=== PATIENT | female | born 1990 | race African-American/Black ===

== ENCOUNTER 2019-04-25 15:55 | Emergency (ER) | payer SELFPAY ==
--- NOTE | ~2019-04-25 | XR_ITS ---
EXAMINATION: XR elbow RT min 3V DATE: 04/25/2019 19:29 INDICATION: Right elbow pain with numbness and tingling radiating down the right arm TECHNIQUE: Anteroposterior, two oblique and lateral views of the right elbow were obtained. COMPARISON: None. FINDINGS: Alignment is normal. No fracture or joint effusion. Joint spaces are normal. Soft tissues are unremar kable. IMPRESSION: 1. Negative right elbow radiographs. Reviewed, dictated and finalized at location A. [employer]
[2019-04-25 16:52] VITALS: BP 155/94; PULSE 62; RESP 19; TEMP 36.9; O2SAT 99
--- NOTE | 2019-04-25 19:19 | WC.ED.TRAUMA ---
HPI - Trauma General Chief Complaint: Extremity Injury, Upper Stated Complaint: Right Arm Pain Time Seen by Provider: 04/25/19 19:17 Source: patient Mode of arrival: ambulatory Limitations: no limitations History of Present Illness HPI narrative: Patient is a 28-year-old female who presents to emergency department with 3 days duration of right elbow pain noting moderate aching pain patient notes that he was popping the elbow secondary to the pain and notes since she has had increasing pain that radiates into the forearm. Patient notes the pain is worse with activity and movement. Patient notes moderate aching pain since she has not taken anything for this patient know she does get some numbness down into the hand. Patient denies injury or complaint but notes she works doing frequent activities of the elbow and hands and was pulling or pushing an object when she believes the pain began. Patient has not been seen for this complaint. On arrival to emergency department patient is in the room in no distress Related Data Allergies Allergy/AdvReac Type Severity Reaction Status Date / Time No Known Allergies Allergy Verified 04/25/19 19:16 Review of Systems Review of Systems: Narrative: CONSTITUTIONAL: Denies fever, chills, or sweats. CARDIOVASCULAR: Denies chest pain, palpitations, or edema. RESPIRATORY: Denies cough or dyspnea. SKIN: Denies redness or warmth to touch or rash MUSCULOSKELETAL: Denies neck or upper back pain NEUROLOGIC: Denies headache, numbness PMFSH Social History Social History (Updated 04/25/19 @ 19:27 by Jose Alejandro Black PA-C) Smoking status: Never smoker Gender identity (if verbalized by the patient): Male Exam Narrative: Exam Narrative: GENERAL: Well-appearing, well-nourished, and in no acute distress. HEAD: Normocephalic, atraumatic. EYES: PERRLA and EOMI. ENT: Nares clear, no rhinorrhea or epistaxis. Mucous membranes moist. Oropharynx without tonsillar hypertrophy exudate or other lesions. NECK: Supple. No adenopathy or masses. CHEST: Clear to auscultation. No respiratory distress. No wheezes rales or rhonchi HEART: Regular rate and rhythm. No murmur heard. Normal peripheral pulses. EXTREMITIES: Tenderness of the posterior elbow with even light touch no deformities noted with tenderness into the forearm without any deformity noted no tenderness of the shoulder or cervical spine SKIN: Warm, dry, no rash. NEURO: No focal deficits. Alert and oriented x3. Neurovascularly intact. Capillary refill less than 2 seconds PSYCH: Normal mood and affect. Course Course Emergency Course: Patient in the room in no distress aware of case findings treatment plan and diagnosis agreeing to follow-up as directed or to return if symptoms worsen or concerns Vital Signs Vital signs: Vital Signs Temperature 98.4 F 04/25/19 16:52 Pulse Rate 62 04/25/19 16:52 Respiratory Rate 19 04/25/19 16:52 Blood Pressure 155/94 H 04/25/19 16:52 Pulse Oximetry 99 04/25/19 16:52 Temperature 98.4 F 04/25/19 16:52 Pulse Rate 62 04/25/19 16:52 Respiratory Rate 19 04/25/19 16:52 Blood Pressure 155/94 H 04/25/19 16:52 Pulse Oximetry 99 04/25/19 16:52 MDM - Trauma MDM Narrative Medical decision making narrative: Patients injury or pain is consistent with musculoskeletal etiology. No signs of neurological or vascular compromise on exam. Compartments and tisues are soft without signs of compartment syndrome. Pain is felt appropriate for further evaluation on an outpatient basis. Imaging Data Radiologist's impression: ITS Impressions Elbow X-Ray 04/25/19 19:30 IMPRESSION: 1. Negative right elbow radiographs. Discharge Plan Discharge Clinical Impression: Arm pain, right Patient Disposition: Home, Self-Care Condition: Stable Instructions: Antibiotic Form, Arm Pain (ED) Additional Instructions: Follow up with your primary care provider within 5-7 days. Go to ER
[2019-04-25] MEDS: predniSONE 20 MG TABLET 40 MG PO (19:36)
[2019-04-25] MEDS: KETOROLAC (*BKC) 60 MG/2 ML VIAL IM (19:37)
[2019-04-25 20:07] VITALS: TEMP 36.9
[2019-04-25 20:31] VITALS: BP 152/81; PULSE 66; RESP 16; TEMP 37; O2SAT 100
== END 2019-04-25 20:36 | disposition home or self-care (01) ==
PROVIDERS: Emergency Provider Emergency Medicine
DX: M25.521 Pain in right elbow (principal)
CPT/HCPCS: 73080; 96372; 99283; J1885; J7512

== ENCOUNTER 2020-07-27 17:30 | Emergency (ER) | payer OTHER, SELFPAY ==
--- NOTE | ~2020-07-27 | XR_ITS ---
EXAMINATION: XR finger 3rd RT min 2V DATE: 07/27/2020 21:31 INDICATION: Right hand third digit dog bite. TECHNIQUE: 3 views of right hand third digit were obtained. COMPARISON: None. FINDINGS: Bone alignment is normal. No fracture. Joint spaces are well maintained. IMPRESSION: 1. No fracture or radiopaque foreign body. Reviewed, dictated and finalized at location A.
--- NOTE | ~2020-07-27 | CT_ITS ---
EXAMINATION: CT abdomen pelvis w con DATE: 07/27/2020 22:07 INDICATION: Abdominal pain. Nausea and vomiting. Diarrhea. TECHNIQUE: Computed tomography (CT) of the abdomen and pelvis was performed with 100 mL Omnipaque 350 intravenous contrast. Automated exposure control and iterative reconstruction technique were employe d. The dose-length product was 894.75 mGy-cm. COMPARISON: None. FINDINGS: The visualized portions of the lung bases are clear without pneumonia or pleural effusion. The heart size is normal. No pericardial effusion. The liver and spleen are normal. The gallbladder i s contracted. The pancreas, adrenal glands, and kidneys are normal. There are no dilated loops of bow el. The appendix is normal. There is mild mesenteric lymphadenopathy with the largest node measuring 14 x 20 mm. There is no free intraperitoneal fluid. The bones are unremarkable. IMPRESSION: 1. Mild mesenteric lymphadenopathy, likely reactive. Reviewed, dictated and finalized at location A.
[2020-07-27 18:07] VITALS: BP 137/88; PULSE 80; RESP 18; TEMP 36.2; O2SAT 99
[2020-07-27 18:24] LABS: Basophils Absolute Auto 0.1 K/mm3 (0.0-0.1); Basophils Percent Auto 0.9 % (0.2-1.2); Eosinophils Absolute Auto 0.2 K/mm3 (0-0.3); Eosinophils Percent Auto 2.9 % (0-4.4); Hemoglobin 12.8 g/dL (12.0-15.0); Immature Granulocyte Absolute 0.03 K/mm3 (0.00-0.031); Immature Granulocyte Percent A 0.4 % (0-0.5); Lymphocytes Absolute Auto 2.17 K/mm3 (0.9-3.2); Lymphocytes Percent Auto 28.9 % (18.3-44.2); Mean Corpuscular HGB Conc 31.2 g/dl (32-36); Mean Corpuscular Hemoglobin 27.2 pg (26-34); Mean Corpuscular Volume 87.2 fl (80-100); Mean Platelet Volume 10.5 fl (7.4-10.4); Monocytes Absolute Auto 0.8 K/mm3 (0.1-0.6); Monocytes Percent Auto 11.2 % (2.6-8.5); Neutrophils Absolute Auto 4.2 K/mm3 (1.3-6.7); Neutrophils Percent Auto 55.7 % (45.5-73.1); Platelet Count Result 250 k/mm3 (150-375); Red Cell Distribution Width 13.7 % (11.5-14.5); White Blood Count 7.5 K/mm3 (4.5-10.0)
[2020-07-27 18:36] LABS: Potassium 3.5 mmol/L (3.4-5.0)
[2020-07-27 18:40] LABS: Alanine Aminotransferase 24 U/L (4-35); Albumin Level 4.3 g/dL (3.5-5.1); Alkaline Phosphatase 56 U/L (38-126); Anion Gap 5 mmol/L (8-16); Aspartate Amino Transferase 28 U/L (14-36); Bilirubin,Total 0.4 mg/dL (0.2-1.3); Blood Urea Nitrogen 8 mg/dL (7-17); Calcium 9.5 mg/dL (8.4-10.2); Carbon Dioxide 30 mmol/L (22-30); Chloride 104 mmol/L (98-107); Estimated CRCL calculation 92 ml/min; Estimated Glomerular Filt Rate > 60; Glucose 116 mg/dL (65-105); Lipase 37 U/L (23-300); Sodium 139 mmol/L (137-145)
[2020-07-27 18:43] LABS: Atypical Lymphocytes Present; Platelet Estimate Adequate (Adequate)
--- NOTE | 2020-07-27 20:42 | PC.NURSE ---
pt states she isn't able to urinate at this time. pt given blue bag. will let rn know when shes able to give sample.
--- NOTE | 2020-07-27 21:22 | ED.GENADULT ---
HPI - General Adult General Chief complaint: Unspecified Stated complaint: Diarrhea x 2 weeks,chest heaviness, dog bite Time Seen by Provider: 07/27/20 20:46 Source: patient, RN notes reviewed and old records reviewed Mode of arrival: ambulatory Limitations: no limitations History of Present Illness HPI narrative: Patient is 29 years old -[place] female presents with a dog bite to right third finger 6 days ago. Patient knows the dog, unknown last tetanus. Patient also complaining of nausea, vomiting and diarrhea for the last 2 weeks with diffuse lower abdominal pain. Patient reports vomiting anything she ate or drink. Also watery stool, maximum 3 times a day. Patient denies any fever, chills, nausea, vomiting, history of abdominal surgery, vaginal bleeding or discharge or urinary symptoms. Related Data Allergies Allergy/AdvReac Type Severity Reaction Status Date / Time No Known Allergies Allergy Verified 07/27/20 21:19 Review of Systems Review of Systems: Narrative: CONSTITUTIONAL: Denies fever, chills, or sweats. EYES: Denies visual changes, redness, or discharge. ENT: Denies rhinorrhea, congestion, sore throat, or otalgia. CARDIOVASCULAR: Denies chest pain, palpitations, or edema. RESPIRATORY: Denies cough or dyspnea. GASTROINTESTINAL: Denies abdominal pain, nausea, vomiting, or diarrhea. GENITOURINARY: Denies dysuria or hematuria. SKIN: Denies rash or itching. MUSCULOSKELETAL: Denies back pain, joint pain, or myalgia. NEUROLOGIC: Denies headache, numbness, or weakness. PSYCHIATRIC: Denies anxiety or depression. [facility] Social History Social History Smoking status: Never smoker Gender identity (if verbalized by the patient): Male Exam Narrative: Exam Narrative: General appearance: Well-developed, well-nourished Skin: Normal color Head: Normocephalic, nontraumatic Eyes: Clear conjunctiva ENT: Oropharynx normal, ears normal, nose normal Neck: Supple, nontender Chest and respiratory: Airway patent, no respiratory distress, no accessory muscle use Heart: Regular rate/rhythm Abdomen: Soft, diffuse tenderness across mid abdomen bilaterally, no guarding or rebound, hypoactive bowel sounds Vascular: Normal peripheral pulses, normal capillary refill. Musculoskeletal: Normal range of motion, nontender back, right middle finger showed healed bites, no swelling, no erythema, no discharge, slight limited range of motion Neurologic: Alert and oriented ?3, [employer] is normal as tested, no gross motor deficit Course Course Emergency Course: Stable Vital Signs Vital signs: Vital Signs Temperature 36.2 C L 07/27/20 18:07 Pulse Rate 80 07/27/20 18:07 Respiratory Rate 18 07/27/20 18:07 Blood Pressure 137/88 07/27/20 18:07 Pulse Oximetry 99 07/27/20 18:07 Temperature 36.2 C L 07/27/20 18:07 Pulse Rate 75 07/27/20 22:48 Respiratory Rate 18 07/27/20 22:48 Blood Pressure 121/76 07/27/20 22:48 Pulse Oximetry 100 07/27/20 22:48 Medical Decision Making [facility] Narrative Medical decision making narrative: Gastroenteritis, fracture right middle finger is my concern. Labs, IV fluid, CT abdomen pelvis with IV contrast ordered. Please look at my depression diagnosis below Differential Diagnosis Differential Diagnosis: Viral gastroenteritis, diverticulitis, electrolyte imbalance, fracture right middle finger. Vital Signs Vital Signs: Vital Signs Temperature 36.2 C L 07/27/20 18:07 Pulse Rate 80 07/27/20 18:07 Respiratory Rate 18 07/27/20 18:07 Blood Pressure 137/88 07/27/20 18:07 Pulse Oximetry 99 07/27/20 18:07 Temperature 36.2 C L 07/27/20 18:07 P
[2020-07-27] MEDS: SODIUM CHLORIDE 0.9% IV 1,000 ML 999 ML IV CONT (21:35)
[2020-07-27 21:39] VITALS: BP 121/105; O2SAT 100
[2020-07-27] MEDS: TETANUS,DIPHTHERIA,AC PERTUSSIS ADULT (0.5 ML) BOOSTRIX IM (21:44)
[2020-07-27 22:48] VITALS: BP 121/76; PULSE 75; RESP 18; O2SAT 100
--- NOTE | 2020-07-27 23:17 | PC.NURSE ---
rn noticed urine order still read ordered. called lab to see if maybe there wasnt enough urine in last sample. lab stated they just had shift change and isn't sure why it still says ordered. they stated we can send down more urine with patient label.
[2020-07-27 23:29] LABS: Add Urine Microscopic? NO; Appearance Urine Clear (Clear); Bilirubin Urine Negative (Negative); Blood Urine Negative (Negative); Color Urine Yellow (Yellow); Glucose Urine UA Negative (Negative); Ketones Urine Negative (Negative); Leukocyte Esterase Ur Negative LEU/UL (Negative); Nitrate Urine Negative (Negative); Protein Urine Negative (Negative); Specific Grav Ur 1.026 (1.001-1.035); Urobilinogen Urine Negative mg/dL (<2.0)
[2020-07-27 23:43] VITALS: BP 119/79; PULSE 70; RESP 18; O2SAT 99
== END 2020-07-27 23:45 | disposition home or self-care (01) ==
PROVIDERS: Emergency Provider Emergency Medicine; PCP Emergency Medicine
DX: K52.9 Noninfective gastroenteritis and colitis, unspecified (principal); S61.252A Open bite of right middle finger without damage to nail, initial encounter; Z23 Encounter for immunization; W54.0XXA Bitten by dog, initial encounter
CPT/HCPCS: 36415; 73140; 74177; 80053; 81003; 81025; 83690; 85025; 90471; 90715; 96360; 96361; 99284; J7030; Q9967

== ENCOUNTER 2020-08-12 08:32 | Emergency (ER) | payer OTHER, SELFPAY ==
--- NOTE | ~2020-08-12 | CT_ITS ---
EXAMINATION: CT abdomen pelvis w con DATE: 08/12/2020 10:26 INDICATION: Generalized abdominal pain TECHNIQUE: Computed tomography (CT) of the abdomen and pelvis was performed with 100 mL Omnipaque-350 intravenous contrast. Automated exposure control and iterative reconstruction technique were employe d. The dose-length product was 849.38 mGy-cm. COMPARISON: 08/06/2020 FINDINGS: Lung bases are clear. Heart size is normal. No pericardial or pleural effusion. Liver, gallbladder, s pleen, pancreas, bilateral adrenal glands and kidneys are normal. Bowels including the appendix are n ormal. Bladder, anteverted uterus and bilateral adnexa are unremarkable. No free intraperitoneal gas or fluid. No pathologically enlarged abdominal or pelvic lymphadenopathy. Slight interval decrease in size of several mildly enlarged likely reactive mesenteric lymph nodes, 2 of the largest measuring 1 .9 x 1.1 cm and 1.7 x 1.0 cm. No new or enlarging abdominal, pelvic or inguinal lymphadenopathy. Mini mal to mild thoracolumbar spondylosis. IMPRESSION: 1. Slight improvement in nonspecific mild mesenteric lymphadenopathy which is likely reactive. Reviewed, dictated and finalized at location A. IMPRESSION: 1. Slight improvement in nonspecific mild mesenteric lymphadenopathy which is l ikely reactive.
[2020-08-12 08:33] VITALS: BP 146/96; PULSE 71; RESP 20; TEMP 36.3; O2SAT 99
--- NOTE | 2020-08-12 09:44 | PC.NURSE ---
x1 day bilat lower abd sharp, stabbing pains, bad chest pains, like heartburn , +congested cough. +N/V/D, able to tolerate a little PO. deneis urinary s/s, +cold sweats
[2020-08-12] MEDS: SODIUM CHLORIDE 0.9% IV 1,000 ML 999 ML IV CONT (09:47)
[2020-08-12 09:59] LABS: Basophils Absolute Auto 0.1 K/mm3 (0.0-0.1); Basophils Percent Auto 0.7 % (0.2-1.2); Eosinophils Absolute Auto 0.2 K/mm3 (0-0.3); Eosinophils Percent Auto 2.5 % (0-4.4); Hematocrit 40.7 % (37.0-47.0); Hemoglobin 12.6 g/dL (12.0-15.0); Immature Granulocyte Absolute 0.07 K/mm3 (0.00-0.031); Immature Granulocyte Percent A 0.8 % (0-0.5); Lymphocytes Absolute Auto 2.83 K/mm3 (0.9-3.2); Lymphocytes Percent Auto 31.8 % (18.3-44.2); Mean Corpuscular Hemoglobin 27.3 pg (26-34); Mean Corpuscular Volume 88.3 fl (80-100); Mean Platelet Volume 10.4 fl (7.4-10.4); Monocytes Absolute Auto 0.8 K/mm3 (0.1-0.6); Monocytes Percent Auto 8.8 % (2.6-8.5); Neutrophils Absolute Auto 4.9 K/mm3 (1.3-6.7); Neutrophils Percent Auto 55.4 % (45.5-73.1); Platelet Count Result 261 k/mm3 (150-375); Red Blood Count 4.61 M/mm3 (4.2-5.4); Red Cell Distribution Width 14.4 % (11.5-14.5); White Blood Count 8.9 K/mm3 (4.5-10.0)
[2020-08-12 10:03] LABS: Add Urine Microscopic? YES; Appearance Urine Cloudy (Clear); Bilirubin Urine Negative (Negative); Blood Urine Negative (Negative); Color Urine Yellow (Yellow); Glucose Urine UA Negative (Negative); Ketones Urine Negative (Negative); Leukocyte Esterase Ur Negative LEU/UL (Negative); Mucus Urine Rare /lpf; Nitrate Urine Negative (Negative); Protein Urine Negative (Negative); RBC Urine 0-2 /hpf (0-2); Specific Grav Ur 1.017 (1.001-1.035); Squamous Epithelial Cell Urine Occasional /hpf (Few); Urobilinogen Urine Negative mg/dL (<2.0); WBC Urine 0-3 /hpf
[2020-08-12 10:09] LABS: Alanine Aminotransferase 20 U/L (4-35); Albumin Level 4.1 g/dL (3.5-5.1); Alkaline Phosphatase 62 U/L (38-126); Anion Gap 4 mmol/L (8-16); Aspartate Amino Transferase 22 U/L (14-36); Bilirubin,Total 0.3 mg/dL (0.2-1.3); Blood Urea Nitrogen 12 mg/dL (7-17); Calcium 9.4 mg/dL (8.4-10.2); Carbon Dioxide 28 mmol/L (22-30); Chloride 106 mmol/L (98-107); Estimated CRCL calculation 112 ml/min; Estimated Glomerular Filt Rate > 60; Glucose 108 mg/dL (65-105); Lipase 47 U/L (23-300); Potassium 4.1 mmol/L (3.4-5.0); Sodium 138 mmol/L (137-145)
--- NOTE | 2020-08-12 11:00 | ED.GENADULT ---
HPI - General Adult General Chief complaint: Abdominal Pain Stated complaint: ABD PAIN Time Seen by Provider: 08/12/20 09:27 Source: patient, family and RN notes reviewed Mode of arrival: ambulatory Limitations: no limitations History of Present Illness HPI narrative: Patient is a 29-year-old female who presents with abdominal pain in the epigastrium radiating to the chest has been present for the last 2 days patient has had similar occurrence in the past seen by primary care denies fever chills nausea vomiting did have some loose stools denies sick contacts presents in no distress has not taken anything for her symptoms Related Data Allergies Allergy/AdvReac Type Severity Reaction Status Date / Time No Known Allergies Allergy Verified 08/12/20 08:42 Review of Systems Review of Systems: All systems reviewed & are unremarkable except as noted in HPI and below PMFSH Social History Social History Smoking status: Never smoker Gender identity (if verbalized by the patient): Female Exam Narrative: Exam Narrative: GENERAL: Well-appearing, well-nourished, and in no acute distress. HEAD: Normocephalic, atraumatic. EYES: PERRLA and EOMI. ENT: Nares clear, no rhinorrhea or epistaxis. Mucous membranes moist. CHEST: Clear to auscultation. No respiratory distress. No wheezes rales or rhonchi HEART: Regular rate and rhythm. No murmur heard. Normal peripheral pulses. ABDOMEN: Soft, nontender, nondistended EXTREMITIES: Normal range of motion. No edema. SKIN: Warm, dry, no rash. NEURO: No focal deficits. Alert and oriented x3. Cranial nerves II through XII grossly intact PSYCH: Normal mood and affect. Course Course Emergency Course: Patient in the room at this time no distress resting comfortably findings were reviewed with the patient patient will be discharged home back to primary care placed on an acid minimal tenderness of the abdomen no high risk changes in the evaluation to include blood work and imaging ABCs and vital signs intact and stable Vital Signs Vital signs: Vital Signs Temperature 97.4 F L 08/12/20 08:33 Pulse Rate 71 08/12/20 08:33 Respiratory Rate 20 08/12/20 08:33 Blood Pressure 146/96 H 08/12/20 08:33 Pulse Oximetry 99 08/12/20 08:33 Temperature 97.4 F L 08/12/20 08:33 Pulse Rate 71 08/12/20 08:33 Respiratory Rate 20 08/12/20 08:33 Blood Pressure 146/96 H 08/12/20 08:33 Pulse Oximetry 99 08/12/20 08:33 Medical Decision Making MDM Narrative Medical decision making narrative: Patient in the room at this time no distress aware of case findings treatment plan and diagnosis will follow with primary care and has been given a GI referral and reasons to return Vital Signs Vital Signs: Vital Signs Temperature 97.4 F L 08/12/20 08:33 Pulse Rate 71 08/12/20 08:33 Respiratory Rate 20 08/12/20 08:33 Blood Pressure 146/96 H 08/12/20 08:33 Pulse Oximetry 99 08/12/20 08:33 Temperature 97.4 F L 08/12/20 08:33 Pulse Rate 71 08/12/20 08:33 Respiratory Rate 20 08/12/20 08:33 Blood Pressure 146/96 H 08/12/20 08:33 Pulse Oximetry 99 08/12/20 08:33 Lab Data Result diagrams: 08/12/20 09:49 08/12/20 09:49 Labs: Lab Results 08/12/20 08/12/20 08/12/20 Range/Units 09:49 09:49 09:49 WBC 8.9 (4.5-10.0) K/mm3 RBC 4.61 (4.2-5.4) M/mm3 Hgb 12.6 (12.0-15.0) g/dL Hct 40.7 (37.0-47.0) % MCV 88.3 (80-100) fl MCH 27.3 (26-34) pg MCHC 31.0 L (32-36) g/dl RDW 14.4 (11.5-14.5) % Plt Count 261 (150-375) k/mm3 MPV 10.4 (7.4-10.4) fl Immature Gran % (Auto) 0.8 H (0-0.5) % Neut % (Auto) 55.4 (45.5-73.1) % Lymph % (Auto) 31.8 (18.3-44.2) % Pierce % (Auto) 8.8 H (2.6-8.5) % Eos % (Auto) 2.5 (0-4.4) % Baso % (Auto) 0.7 (0.2-1.2) % Lymph # (Auto) 2.83 (0.9-3.2) K/mm3 Pierce # (Auto) 0.8 H (0.1-0.
[2020-08-12 11:20] VITALS: BP 136/96; PULSE 74; RESP 18; O2SAT 100
[2020-08-12] MEDS: PANTOPRAZOLE SODIUM IV 40 MG VIAL IV PUSH (11:24)
== END 2020-08-12 11:30 | disposition home or self-care (01) ==
PROVIDERS: Emergency Provider Emergency Medicine; PCP Emergency Medicine
DX: R10.13 Epigastric pain (principal)
CPT/HCPCS: 36415; 74177; 80053; 81001; 81025; 83690; 85025; 96361; 96374; 99284; C9113; J7030; Q9967

== ENCOUNTER 2020-10-06 11:48 | Emergency (ER) | payer OTHER, SELFPAY ==
--- NOTE | ~2020-10-06 | XR_ITS ---
EXAMINATION: XR lumbar spine 2-3V DATE: 10/06/2020 12:31 INDICATION: Low back pain TECHNIQUE: Anteroposterior and lateral views of the lumbar spine, and cone-down lateral view of the l umbosacral junction were obtained. COMPARISON: None. FINDINGS: There is no fracture, dislocation, or subluxation. The vertebral body heights, alignment, a nd intervertebral disc spaces are normal. The paravertebral soft tissues are unremarkable. IMPRESSION: 1. No acute osseous abnormality. Reviewed, dictated and finalized at location A.
[2020-10-06 11:49] VITALS: BP 129/92; PULSE 75; RESP 18; TEMP 36.6; O2SAT 100
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
[2020-10-06] MEDS: KETOROLAC (*BKC) 60 MG/2 ML VIAL IM (12:39)
[2020-10-06] MEDS: CYCLOBENZAPRINE HCL 10 MG TABLET PO (12:39)
== END 2020-10-06 14:01 | disposition home or self-care (01) ==
PROVIDERS: Emergency Provider Nurse Practitioner; PCP Emergency Medicine
DX: M54.5 Low back pain (principal); G89.29 Other chronic pain
CPT/HCPCS: 72100; 96372; 99283; A9270; J1885

== ENCOUNTER 2020-12-29 14:26 | Emergency (ER) | payer OTHER, SELFPAY ==
--- NOTE | ~2020-12-29 | XR_ITS ---
EXAMINATION: XR lumbar spine 2-3V DATE: 12/29/2020 16:32 INDICATION: Low back pain radiating down the bilateral legs. TECHNIQUE: Anteroposterior and lateral views of the lumbar spine, and cone-down lateral view of the l umbosacral junction were obtained. COMPARISON: None. FINDINGS: Alignment is normal. Vertebral body heights are normal. Minimal disc height loss at L3-L4 and L4-L5. Sacrum and bilateral sacral iliac joints are normal. Normal bowel gas pattern. IMPRESSION: 1. Minimal disc height loss at L3-L4 and L4-L5. Otherwise unremarkable lumbar spine radiographs. Reviewed, dictated and finalized at location A. IMPRESSION: 1. Minimal disc height loss at L3-L4 and L4-L5. Otherwise unremarkable lumbar s pine radiographs.
[2020-12-29 14:33] VITALS: BP 131/85; PULSE 79; TEMP 36.9; O2SAT 94
--- NOTE | 2020-12-29 16:09 | ED.LOWEXIN ---
HPI - Extremity Injury (Lower) General Chief Complaint: Extremity Injury, Lower Stated Complaint: R foot pain Time Seen by Provider: 12/29/20 15:52 Source: patient Mode of arrival: ambulatory Limitations: no limitations History of Present Illness HPI Narrative: This is a 30 year old female that presents to the ER for low back pain present since yesterday. Reports the pain radiates down both of her legs. Worse with movement and relieved with rest. Reports intermittent tingling in her extremities. She has not taken anything for pain. No recent injury or trauma. Denies saddle anesthesia or bowel/bladder incontinence. Related Data Allergies Allergy/AdvReac Type Severity Reaction Status Date / Time No Known Allergies Allergy Verified 08/12/20 08:42 Review of Systems Review of Systems: CONSTITUTIONAL: Denies fever SKIN: Denies rash MUSCULOSKELETAL: Reports back pain, joint pain, and myalgia. NEUROLOGIC: Denies numbness, or weakness. All systems reviewed & are unremarkable except as noted in HPI and below PMFSH Past Medical History Medical History (Updated 12/29/20 @ 18:50 by Marlene García PA-C) Chronic low back pain Surgical History Surgical History No pertinent past surgical history Family History Family History (Updated 10/06/20 @ 13:50 by Saul Jimenez, [facility], ) Mother No pertinent past medical history Social History Social History Smoking status: Never smoker Alcohol intake: current Alcohol use details: Socially Substance use: current Substance use type: marijuana Additional occupation/education comments: Works for [employer] Gender identity (if verbalized by the patient): Female Sexual Orientation (if Verbalized by the Patient): Straight or Heterosexual Spiritual care concerns: No Exam Narrative: GENERAL: Well-appearing, well-nourished, and in no acute distress. HEAD: Normocephalic, atraumatic. EYES: EOMI. CHEST: Clear to auscultation. No respiratory distress. No wheezes rales or rhonchi HEART: Regular rate and rhythm. No murmur heard. Normal peripheral pulses. BACK: No midline spinal tenderness. EXTREMITIES: Normal range of motion. No edema. Strength equal in bilateral lower extremities (5/5). Normal DP pulses SKIN: Warm, dry, no rash. NEURO: No focal deficits. Alert and oriented x3. PSYCH: Normal mood and affect Course Vital Signs Vital signs: Vital Signs Temperature 98.5 F 12/29/20 14:33 Pulse Rate 79 12/29/20 14:33 Blood Pressure 131/85 12/29/20 14:33 Pulse Oximetry 94 12/29/20 14:33 Temperature 98.5 F 12/29/20 14:33 Pulse Rate 79 12/29/20 14:33 Blood Pressure 131/85 12/29/20 14:33 Pulse Oximetry 94 12/29/20 14:33 MDM - Extremity Injury (Lower) MDM Narrative Medical decision making narrative: Patient presents to the emergency department for acute on chronic low back pain. No recent injury or trauma. Bedside test is negative. Patient is neurologically intact. Vitals are stable. Lumbar spine x-ray shows minimal disc height loss at L3/4 and L4/5. Patient was updated on case findings. Instructed to rest, ice and take [id number] pain medication as needed. Will be given muscle relaxer as needed for pain. She is to follow-up with primary care doctor. She was given warnings to return to the ER Lab Data Attestation: I reviewed the patient's lab results. Labs: UCG Bedside Result Negative Reference Range: Negative Imaging Data Radiologist's impression: ITS Impressions Lumbar Spine X-Ray 12/29/20 18:39 IMPRESSION: 1. Minimal disc height loss at L3-L4 and L4-L5. Otherwise unremarkable lumbar spine radiographs. Critical Care Time Critical Care Time Critical Care Time: No Discharge Plan Discharge Clinical
[2020-12-29] MEDS: diazePAM INJ (*CRX) 10 MG/2 ML SYRINGE 5 MG IM (16:14)
[2020-12-29] MEDS: ACETAMINOPHEN 500 MG TABLET 1000 MG PO (16:14)
== END 2020-12-29 19:10 | disposition home or self-care (01) ==
PROVIDERS: Emergency Provider Emergency Medicine; PCP Emergency Medicine
DX: M54.31 Sciatica, right side (principal)
CPT/HCPCS: 72100; 81025; 96372; 99283; A9270; J3360

== ENCOUNTER 2021-04-05 10:32 | Emergency (ER) | payer OTHER, SELFPAY ==
--- NOTE | ~2021-04-05 | XR_ITS ---
EXAMINATION: XR chest 2V DATE: 04/05/2021 10:53 INDICATION: Shortness of breath. Cough. TECHNIQUE: Frontal and lateral views of the chest were obtained. COMPARISON: CT abdomen and pelvis 08/12/2020 FINDINGS: The chest demonstrates clear lungs without pneumonia, pleural effusion, or pneumothorax. Th e heart size is normal. IMPRESSION: 1. No acute cardiopulmonary disease. Reviewed, dictated and finalized at location B. NG MACHINE SET UP OPERATOR JIG
[2021-04-05 10:38] VITALS: BP 149/103; PULSE 93; RESP 20; TEMP 36.7; O2SAT 99
--- NOTE | 2021-04-05 10:41 | ECG_ITS ---
Measurements Intervals [place] Rate: 91 P: 58 [place]: 185 QRS: 46 QRSD: 84 T: 44 QT: 349 QTc: 431 Interpretive Statements SINUS RHYTHM BASELINE ARTIFACT- I, II, III, AVR, AVL, AVF, V4 NORMAL ECG Electronically Signed On 04-05-2021 11:00:03 RADIO RECORDER by Delfino Silva D.O.
[2021-04-05 10:53] LABS: Basophils Absolute Auto 0.1 K/mm3 (0.0-0.1); Basophils Percent Auto 0.6 % (0.2-1.2); Eosinophils Absolute Auto 0.5 K/mm3 (0-0.3); Eosinophils Percent Auto 4.2 % (0-4.4); Hematocrit 42.2 % (37.0-47.0); Hemoglobin 13.3 g/dL (12.0-15.0); Immature Granulocyte Absolute 0.05 K/mm3 (0.00-0.031); Immature Granulocyte Percent A 0.5 % (0-0.5); Lymphocytes Absolute Auto 3.51 K/mm3 (0.9-3.2); Lymphocytes Percent Auto 32.5 % (18.3-44.2); Mean Corpuscular HGB Conc 31.5 g/dl (32-36); Mean Corpuscular Hemoglobin 27.7 pg (26-34); Mean Corpuscular Volume 87.9 fl (80-100); Monocytes Absolute Auto 0.8 K/mm3 (0.1-0.6); Neutrophils Percent Auto 55.2 % (45.5-73.1); Platelet Count Result 270 k/mm3 (150-375); Red Cell Distribution Width 14.1 % (11.5-14.5); White Blood Count 10.8 K/mm3 (4.5-10.0)
[2021-04-05 11:03] LABS: Alanine Aminotransferase 19 U/L (4-35); Albumin Level 4.6 g/dL (3.5-5.1); Alkaline Phosphatase 61 U/L (38-126); Anion Gap 11 mmol/L (8-16); Aspartate Amino Transferase 22 U/L (14-36); Bilirubin,Total 0.5 mg/dL (0.2-1.3); Blood Urea Nitrogen 10 mg/dL (7-17); Calcium 9.3 mg/dL (8.4-10.2); Carbon Dioxide 27 mmol/L (22-30); Chloride 102 mmol/L (98-107); Estimated CRCL calculation 97 ml/min; Estimated Glomerular Filt Rate > 60; Glucose 123 mg/dL (65-110); Potassium 3.6 mmol/L (3.4-5.0); Sodium 140 mmol/L (137-145)
[2021-04-05 11:13] VITALS: O2SAT 99
--- NOTE | 2021-04-05 11:13 | ED.URI ---
HPI - URI/Sore Throat General Chief Complaint: Shortness of Breath/Dyspnea Stated Complaint: SOB Time Seen by Provider: 04/05/21 10:59 Source: patient Mode of arrival: ambulatory Limitations: no limitations History of Present Illness HPI Narrative: Patient is a 30-year-old female complaining of cough, nasal congestion, sore throat x1 week. Patient states that her nose is congested, unable to breathe through her nose and that is why she is short of breath. Patient also states that she felt like her tongue was swollen, denies any lip or throat swelling. Patient denies any extremity swelling or rashes. Patient denies any chest pain, abdominal pain, nausea, vomiting, diarrhea, fever or chills. Related Data Allergies Allergy/AdvReac Type Severity Reaction Status Date / Time No Known Allergies Allergy Verified 08/12/20 08:42 Review of Systems Review of Systems: All systems reviewed & are unremarkable except as noted in HPI and below Constitutional: Constitutional: Denies body ache(s), Denies chills, Denies excessive sweating, Denies fatigue, Denies fever(s), Denies headache(s), Denies lethargy, Denies malaise, Denies weakness and Denies weight loss Eyes: Eyes: Denies blurry vision, Denies change in vision and Denies loss of vision ENT: Denies dizziness, Denies ear discharge, Denies headache(s), Denies lip swelling, Denies epistaxis, Denies neck pain and Denies throat swelling Cardiovascular: Cardiovascular: Denies chest pain, Denies chest pain at rest, Denies chest pain with activity, Denies diaphoresis, Denies rapid heart rate, Denies edema, Denies irregular heart rhythm, Denies lightheadedness, Denies palpitations and Denies dyspnea on exertion Respiratory: Respiratory: Denies chest congestion, Denies hemoptysis and Denies dyspnea on exertion Gastrointestinal: Gastrointestinal: Denies abdominal pain, Denies melena, Denies hematochezia, Denies diarrhea, Denies nausea, Denies vomiting and Denies hematemesis Musculoskeletal: Musculoskeletal: Denies abnormal gait, Denies deformity, Denies joint swelling, Denies limited range of motion, Denies neck pain and Denies numbness Neurologic: Denies Abnormal speech present, Denies abnormal gait, Denies confusion, Denies dizziness, Denies headache(s), Denies focal weakness, Denies loss of vision, Denies numbness, Denies Other visual disturbances, Denies Sensory deficit (Neuro) and Denies weakness Psychiatric: Psychiatric: Denies confusion, Denies depression, Denies auditory hallucinations, Denies homicidal ideation and Denies suicidal ideation Endocrine: Endocrine: Denies cold intolerance, Denies excessive sweating, Denies fatigue, Denies heat intolerance and Denies palpitations Hematologic/Lymphatic: Hematologic/Lymphatic: Denies easy bleeding and Denies easy bruising Allergic/Immunologic: Allergic/Immunologic: Denies lip swelling, Denies throat swelling and Denies tongue swelling PMFSH Past Medical History Medical History Chronic low back pain Surgical History Surgical History No pertinent past surgical history Family History Family History Mother No pertinent past medical history Social History Social History Smoking status: Never smoker Alcohol intake: current Alcohol use details: Socially Substance use: current Substance use type: marijuana Additional occupation/education comments: Works for [employer] Gender identity (if verbalized by the patient): Female Sexual Orientation (if Verbalized by the Patient): Straight or Heterosexual Spiritual care concerns: No Exam Const: General: cooperative, healthy appearing, comfortable, no acute distress, well developed, alert and awake; No confusion Orientation/consciousness: oriented to person, or
[2021-04-05] MEDS: IPRATROPIUM BR 0.02% INH SOLN 0.5 MG/2.5 ML VIAL INHALATION (11:24)
[2021-04-05] MEDS: ALBUTEROL SULFATE NEB 2.5 MG/0.5 ML INH 5 MG INHALATION (11:24)
[2021-04-05 11:25] VITALS: BP 146/86; PULSE 82; RESP 16; O2SAT 100
[2021-04-05 14:00] VITALS: BP 147/95; PULSE 110; RESP 18; O2SAT 99
== END 2021-04-05 14:00 | disposition home or self-care (01) ==
PROVIDERS: Emergency Provider Emergency Medicine; PCP Emergency Medicine
DX: J06.9 Acute upper respiratory infection, unspecified (principal); J01.90 Acute sinusitis, unspecified
CPT/HCPCS: 36415; 71046; 80053; 85025; 93005; 94640; 96374; 99284; J1100

== ENCOUNTER 2021-05-14 07:24 | Emergency (ER) | payer OTHER, SELFPAY ==
[2021-05-14] VITALS (8 sets, daily range): BP systolic 134–158; BP diastolic 75–116; PULSE 80–109; RESP 14–30; TEMP 36.7; O2SAT 98–100
--- NOTE | ~2021-05-14 | XR_ITS ---
EXAMINATION: XR chest 1V portable EXAM DATE: 05/14/2021 08:02 INDICATION: Shortness of breath TECHNIQUE: Frontal and lateral projections of the chest obtained and reviewed. Comparison is made to prior examination from 04/05/2021. FINDINGS: The lungs are clear. There are no pleural effusions. The cardiomediastinal silhouette i s within normal limits. There is no pneumothorax suspected. The bones and soft tissues are unremark able. IMPRESSION: No acute cardiopulmonary findings. Reviewed, dictated and finalized at location A. NAILER
[2021-05-14] MEDS: methylPREDNISolone SOD SUCC 125 MG VIAL IV PUSH (07:42)
--- NOTE | 2021-05-14 07:44 | ECG_ITS ---
Measurements Intervals [place] Rate: 105 P: 89 [place]: 182 QRS: 76 QRSD: 85 T: 67 QT: 341 QTc: 452 Interpretive Statements SINUS TACHYCARDIA BASELINE ARTIFACT- I, II, III, AVR, AVF, V3-V6 BORDERLINE ECG Electronically Signed On 05-14-2021 10:17:38 GIS ENGINEER by Delfino Silva D.O.
[2021-05-14] MEDS: ALBUTEROL SULFATE NEB 2.5 MG/0.5 ML INH 15 MG INHALATION (07:51)
[2021-05-14] MEDS: IPRATROPIUM BR 0.02% INH SOLN 0.5 MG/2.5 ML VIAL 1.5 MG INHALATION (07:51)
[2021-05-14 08:01] LABS: Basophils Absolute Auto 0.1 K/mm3 (0.0-0.1); Basophils Percent Auto 0.8 % (0.2-1.2); Eosinophils Absolute Auto 0.3 K/mm3 (0-0.3); Eosinophils Percent Auto 2.9 % (0-4.4); Hematocrit 41.7 % (37.0-47.0); Hemoglobin 13.1 g/dL (12.0-15.0); Immature Granulocyte Absolute 0.04 K/mm3 (0.00-0.031); Immature Granulocyte Percent A 0.4 % (0-0.5); Lymphocytes Absolute Auto 3.15 K/mm3 (0.9-3.2); Lymphocytes Percent Auto 29.5 % (18.3-44.2); Mean Corpuscular HGB Conc 31.4 g/dl (32-36); Mean Corpuscular Hemoglobin 27.3 pg (26-34); Mean Corpuscular Volume 86.9 fl (80-100); Mean Platelet Volume 10.9 fl (7.4-10.4); Monocytes Absolute Auto 0.9 K/mm3 (0.1-0.6); Monocytes Percent Auto 8.2 % (2.6-8.5); Neutrophils Absolute Auto 6.2 K/mm3 (1.3-6.7); Neutrophils Percent Auto 58.2 % (45.5-73.1); Platelet Count Result 303 k/mm3 (150-375); Red Cell Distribution Width 14.1 % (11.5-14.5); White Blood Count 10.7 K/mm3 (4.5-10.0)
[2021-05-14 08:02] LABS: Alanine Aminotransferase 19 U/L (4-35); Albumin Level 4.7 g/dL (3.5-5.1); Alkaline Phosphatase 55 U/L (38-126); Anion Gap 8 mmol/L (8-16); Aspartate Amino Transferase 24 U/L (14-36); Bilirubin,Total 0.5 mg/dL (0.2-1.3); Blood Urea Nitrogen 10 mg/dL (7-17); Calcium 9.5 mg/dL (8.4-10.2); Carbon Dioxide 25 mmol/L (22-30); Chloride 106 mmol/L (98-107); Estimated CRCL calculation 99 ml/min; Estimated Glomerular Filt Rate > 60; Glucose 135 mg/dL (65-110); Potassium 3.6 mmol/L (3.4-5.0); Sodium 139 mmol/L (137-145)
--- NOTE | 2021-05-14 09:25 | ED.SOB ---
HPI - SOB/Dyspnea General Chief Complaint: Shortness of Breath/Dyspnea Stated Complaint: SOB Time Seen by Provider: 05/14/21 07:29 History of Present Illness HPI Narrative: Patient is a 30-year-old female who presents ER with shortness of breath. Began last night. Has used home albuterol without improvement. EMS came to her home last night and gave her a breathing treatment which improved her symptoms but then they returned. No fevers or chills or sweats. Denies runny nose or sore throat or productive cough. No known sick contacts. Thinks symptoms may be being provoked by weather change. Related Data Allergies Allergy/AdvReac Type Severity Reaction Status Date / Time No Known Allergies Allergy Verified 05/14/21 07:46 Review of Systems Review of Systems: All systems reviewed & are unremarkable except as noted in HPI and below Constitutional: Constitutional: Denies chills, Denies fever(s) and Denies weakness Cardiovascular: Cardiovascular: Denies chest pain, Denies rapid heart rate and Denies radiating jaw, neck or arm pain Respiratory: Respiratory: Reports cough, Reports dyspnea and Reports wheezing Gastrointestinal: Gastrointestinal: Denies abdominal pain, Denies nausea and Denies vomiting Neurologic: Denies focal weakness and Denies numbness PMFSH Past Medical History Medical History Chronic low back pain Surgical History Surgical History No pertinent past surgical history Family History Family History Mother No pertinent past medical history Social History Social History Smoking status: Never smoker Alcohol intake: current Alcohol use details: Socially Substance use: current Substance use type: marijuana Additional occupation/education comments: Works for [employer] Gender identity (if verbalized by the patient): Female Sexual Orientation (if Verbalized by the Patient): Straight or Heterosexual Spiritual care concerns: No Exam Narrative: GENERAL: Uncomfortable-appearing, well-nourished, and in no acute distress. HEAD: Normocephalic, atraumatic. EYES: PERRL and EOMI. CHEST: Poor air movement with inspiratory and expiratory wheezing. Mild respiratory distress. HEART: Tachycardic and regular. Normal peripheral pulses. ABDOMEN: Soft, nontender, nondistended. EXTREMITIES: Normal range of motion. No edema. SKIN: Warm, dry, no rash. NEURO: Alert and oriented x3. PSYCH: Normal mood and affect. Course Course Emergency Course: Lungs clear to auscultation after hour-long breathing treatment and IV Solu-Medrol. Discharge home with prednisone burst and refill of albuterol. Vital Signs Vital signs: Vital Signs Temperature 98.1 F 05/14/21 07:28 Pulse Rate 105 H 05/14/21 07:28 Respiratory Rate 30 H 05/14/21 07:28 Blood Pressure 158/116 H 05/14/21 07:28 Pulse Oximetry 98 05/14/21 07:28 Temperature 98.1 F 05/14/21 07:28 Pulse Rate 91 05/14/21 09:04 Respiratory Rate 19 05/14/21 09:04 Blood Pressure 139/94 H 05/14/21 08:02 Pulse Oximetry 100 05/14/21 08:02 MDM - SOB/Dyspnea Lab Data Result diagrams: 05/14/21 07:43 05/14/21 07:43 Labs: Lab Results 05/14/21 05/14/21 Range/Units 07:43 07:43 WBC 10.7 H (4.5-10.0) K/mm3 RBC 4.80 (4.2-5.4) M/mm3 Hgb 13.1 (12.0-15.0) g/dL Hct 41.7 (37.0-47.0) % MCV 86.9 (80-100) fl MCH 27.3 (26-34) pg MCHC 31.4 L (32-36) g/dl RDW 14.1 (11.5-14.5) % Plt Count 303 (150-375) k/mm3 MPV 10.9 H (7.4-10.4) fl Immature Gran % (Auto) 0.4 (0-0.5) % Neut % (Auto) 58.2 (45.5-73.1) % Lymph % (Auto) 29.5 (18.3-44.2) % [place] % (Auto) 8.2 (2.6-8.5) % Eos % (Auto) 2.9 (0-4.4) % Baso % (Auto) 0.8 (0.2-1.2) % Lymph #
== END 2021-05-14 09:45 | disposition home or self-care (01) ==
PROVIDERS: Emergency Provider Emergency Medicine; PCP Emergency Medicine
DX: J45.901 Unspecified asthma with (acute) exacerbation (principal); R00.0 Tachycardia, unspecified
CPT/HCPCS: 36415; 71045; 80053; 85025; 93005; 94640; 96374; 99284; J2930

== ENCOUNTER 2021-06-26 07:21 | Outpatient (CLI) | payer OTHER, SELFPAY ==
--- NOTE | 2021-07-02 17:42 | WPDHOMESLEEP ---
Sleep Study - Home Unattended Date of Study: 06/26/21 Ordering Provider: Talha Perez DO Interpreting Provider: Allison Dumont DO Home Sleep Study Type: Watch PAT Height: 1.7 m Weight: 105.687 kg Body Mass Index: 36.5 Neck Circumference (inches): 15.75 Reason for Sleep Study Snoring and witnessed apneas Sleep History The patient is a 30-year-old female with moderate persistent asthma, hypertension and obesity that had a home sleep test ordered by her primary care physician for evaluation of sleep apnea. The patient occasionally awakens from sleep short of breath. She occasionally awakens at night with heartburn, belching or cough. She frequently snores and is occasionally loud enough that others complain. She occasionally has trouble sleeping when she has a cold. She frequently wakes up gasping for air throughout the night. She frequently has breathing problems at night observed by herself or others. She occasionally sweats excessively at night. She occasionally has heart palpitations or irregular heartbeats during the night. She rarely falls asleep during the day and never while driving. She rarely experiences loss of muscle tone when extremely emotional. She occasionally has trouble at school or work due to sleepiness. He rarely feels unable to move while waking up or falling asleep. She occasionally has vivid dreamlike scenes upon awakening or falling asleep. She rarely has nightmares. She occasionally remembers her dreams. She occasionally has thoughts racing through her mind. She occasionally feels sad or depressed. She rarely has anxiety. She occasionally has muscular tension. She occasionally notices parts of her body jerk. She denies kicking during the night. She occasionally has crawling and aching feelings in her legs as well as leg pain during the night. He denies grinding her teeth while sleeping and awakening with morning jaw pain. She is occasionally bothered by pain during the day and occasionally awakened by pain during the night. She occasionally wakes up feeling stiff in the morning. She frequently wakes up with sore achy muscles. She frequently wakes up with pain in the neck, spine and other joints. She goes to bed at 11:00 p.m. on weekdays and 2:00 a.m. on the weekends. It takes her more than an hour to fall asleep. She wakes up 4 times throughout the night to use the restroom, get a drink and lay down watch television. It takes her 30 minutes to an hour to fall asleep. She wakes up at 8:00 a.m. on weekdays and 9:00 a.m. on the weekends. She typically gets 4-7 hours of sleep per night. She will stay in bed for 15-30 minutes after waking up in the morning. She currently lives alone. She does consume caffeinated beverages within 2 hours of bedtime. She does engage in physical exercise before bedtime. She will read and watch television before falling asleep. She will take naps in the afternoon or the evenings but they are not refreshing. She will drink caffeinated beverages throughout the day. She will occasionally drink alcohol. She denies tobacco and recreational drug use. 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
[2021-07-02 17:54] VITALS: BMI 36.5
== END 2021-06-27 10:46 | disposition home or self-care (01) ==
LOC: ANHCSM 07:23
PROVIDERS: PCP Family Medicine; Visit Provider Family Medicine
DX: R06.81 Apnea, not elsewhere classified (principal); E66.9 Obesity, unspecified
CPT/HCPCS: 95800

== ENCOUNTER 2021-08-22 10:05 | Emergency (ER) | payer OTHER, SELFPAY ==
--- NOTE | ~2021-08-22 | XR_ITS ---
EXAMINATION: XR chest 2V 08/22/2021 12:21 INDICATION: Cough and shortness of breath PROCEDURE: 2 view chest COMPARISON: 05/14/2021 FINDINGS: The lungs are clear. The cardiomediastinal silhouette is within normal limits. There are no pleural effusions. There is no pneumothorax suspected. IMPRESSION: 1: NO ACUTE CARDIOPULMONARY DISEASE. Reviewed, dictated and finalized at location A.
[2021-08-22 10:17] VITALS: BP 150/78; PULSE 95; RESP 18; TEMP 36.4; O2SAT 99
[2021-08-22 10:42] LABS: Basophils Absolute Auto 0.1 K/mm3 (0.0-0.1); Basophils Percent Auto 0.9 % (0.2-1.2); Eosinophils Absolute Auto 0.8 K/mm3 (0-0.3); Eosinophils Percent Auto 8.5 % (0-4.4); Hematocrit 40.5 % (37.0-47.0); Hemoglobin 12.9 g/dL (12.0-15.0); Immature Granulocyte Absolute 0.03 K/mm3 (0.00-0.031); Immature Granulocyte Percent A 0.3 % (0-0.5); Lymphocytes Percent Auto 28.4 % (18.3-44.2); Mean Corpuscular HGB Conc 31.9 g/dl (32-36); Mean Corpuscular Hemoglobin 27.2 pg (26-34); Mean Corpuscular Volume 85.3 fl (80-100); Mean Platelet Volume 10.5 fl (7.4-10.4); Monocytes Absolute Auto 0.6 K/mm3 (0.1-0.6); Monocytes Percent Auto 6.8 % (2.6-8.5); Neutrophils Percent Auto 55.1 % (45.5-73.1); Platelet Count Result 299 k/mm3 (150-375); Red Blood Count 4.75 M/mm3 (4.2-5.4); Red Cell Distribution Width 14.4 % (11.5-14.5); White Blood Count 9.1 K/mm3 (4.5-10.0)
[2021-08-22 10:43] LABS: Appearance Urine Clear (Clear); Bilirubin Urine Negative (Negative); Blood Urine Trace-lysed (Negative); Color Urine Yellow (Yellow); Glucose Urine UA Negative (Negative); Ketones Urine Negative (Negative); Leukocyte Esterase Ur Negative LEU/UL (Negative); Nitrate Urine Negative (Negative); Protein Urine Negative (Negative); Specific Grav Ur 1.025 (1.001-1.035); Urobilinogen Urine 0.2 mg/dL (<2.0); pH Urine 6.5 (5.0-9.0)
[2021-08-22 10:50] LABS: Add Urine Microscopic? YES
[2021-08-22 10:54] LABS: Alanine Aminotransferase 22 U/L (6-35); Albumin Level 4.4 g/dL (3.5-5.1); Alkaline Phosphatase 59 U/L (38-126); Anion Gap 7 mmol/L (8-16); Aspartate Amino Transferase 26 U/L (14-36); Bilirubin,Total 0.3 mg/dL (0.2-1.3); Blood Urea Nitrogen 10 mg/dL (7-17); Carbon Dioxide 27 mmol/L (22-30); Chloride 106 mmol/L (98-107); Estimated CRCL calculation 103 ml/min; Estimated Glomerular Filt Rate > 60; Glucose 124 mg/dL (65-110); Lipase 40 U/L (23-300); Sodium 140 mmol/L (137-145)
--- NOTE | 2021-08-22 11:53 | ED.GENADULT ---
HPI - General Adult General Chief complaint: Abdominal Pain Stated complaint: COUGH X2WKS Time Seen by Provider: 08/22/21 11:29 History of Present Illness HPI narrative: 30-year-old female presents to the emergency room for evaluation of cough and shortness of breath has been present for 2 weeks. Patient states that she has a inspiratory right lateral chest pain. Recently diagnosed with asthma, has not been taking her prescribed inhaler due to cost issues. Patient denies fever Related Data Allergies Allergy/AdvReac Type Severity Reaction Status Date / Time No Known Allergies Allergy Verified 07/15/21 10:33 Review of Systems Review of Systems: CONSTITUTIONAL: Denies fever, chills, or sweats. EYES: Denies visual changes, redness, or discharge. ENT: Denies rhinorrhea, congestion, sore throat, or otalgia. CARDIOVASCULAR: Reports right lower lateral chest pain RESPIRATORY: Reports cough or dyspnea. GASTROINTESTINAL: Denies abdominal pain, nausea, vomiting, or diarrhea. GENITOURINARY: Denies dysuria or hematuria. SKIN: Denies rash or itching. MUSCULOSKELETAL: Denies back pain, joint pain, or myalgia. NEUROLOGIC: Denies headache, numbness, dizziness, or weakness. PSYCHIATRIC: Denies anxiety or depression. 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 HEAD: Normocephalic, atraumatic. EYES: PERRLA and EOMI CHEST: No respiratory distress. Wheezes in upper lung diane HEART: Regular rate and rhythm. No murmur heard. Normal peripheral pulses. ABDOMEN: Soft, nontender, nondistended, normal active bowel sounds. EXTREMITIES: Normal range of motion. No edema. SKIN: Warm, dry, no rash. NEURO: No focal deficits. Alert and oriented x3. PSYCH: Normal mood and affect. Course Vital Signs Vital signs: Vital Signs Temperature 36.4 C 08/22/21 10:17 Pulse Rate 95 08/22/21 10:17 Respiratory Rate 18 08/22/21 10:17 Blood Pressure 150/78 H 08/22/21 10:17 Pulse Oximetry 99 08/22/21 10:17 Oxygen Delivery Room Air 08/22/21 10:17 Temperature 36.4 C 08/22/21 10:17 Pulse Rate 95 08/22/21 10:17 Respiratory Rate 18 08/22/21 10:17 Blood Pressure 150/78 H 08/22/21 10:17 Pulse Oximetry 99 08/22/21 10:17 Oxygen Delivery Room Air 08/22/21 10:17 Medical Decision Making [facility] Narrative Medical decision making narrative: 30-year-old female presents emergency room for sudden onset of inspiratory chest pain, shortness of breath, wheezing, cough, and feeling of inability to take a deep satisfying breath. Symptoms are suspicious for asthma exacerbation, pleurisy and bronchospasm. Based on the history and physical, I do not suspect an underlying cardiopulmonary process. Chest x-ray shows no acute cardiopulmonary abnormality. Symptoms are not related to acute coronary syndrome, CHF or COPD exacerbation, or pneumonia. Patient responded well to breathing treatment. We will send patient home with prednisone and have her follow-up with her primary care physician. Vital Signs Vital Sign
[2021-08-22 11:55] VITALS: BP 131/92; PULSE 85; RESP 18; O2SAT 97
[2021-08-22 12:00] VITALS: PULSE 80; RESP 20
[2021-08-22 12:09] VITALS: PULSE 76; RESP 20
[2021-08-22] MEDS: IPRATROPIUM BR 0.02% INH SOLN 0.5 MG/2.5 ML VIAL INHALATION (12:11)
[2021-08-22] MEDS: ALBUTEROL SULFATE NEB 2.5 MG/0.5 ML INH 5 MG (12:11)
[2021-08-22 13:39] VITALS: O2SAT 99
[2021-08-22 13:41] VITALS: BP 130/80; PULSE 80; RESP 18; O2SAT 98
== END 2021-08-22 13:41 | disposition home or self-care (01) ==
PROVIDERS: Emergency Medicine; Emergency Provider Nurse Practitioner Family; PCP Family Medicine
DX: J45.901 Unspecified asthma with (acute) exacerbation (principal); R09.1 Pleurisy; I10 Essential (primary) hypertension; Z79.84 Long term (current) use of oral hypoglycemic drugs
CPT/HCPCS: 36415; 71046; 80053; 81001; 81025; 83690; 85025; 94640; 96372; 99283; J1100

== ENCOUNTER 2021-10-03 09:15 | Outpatient (RCR) | payer OTHER, SELFPAY ==
[2021-07-11 09:13] VITALS: BMI 38.0
== END 2021-10-03 09:59 | disposition home or self-care (01) ==
LOC: ANHDMC 09:15
PROVIDERS: PCP Family Medicine; Referring Provider Family Medicine; Visit Provider Family Medicine
DX: E11.9 Type 2 diabetes mellitus without complications (principal); Z71.3 Dietary counseling and surveillance; Z71.89 Other specified counseling
CPT/HCPCS: 97802; 99199; G0108

== ENCOUNTER 2021-12-24 01:13 | Emergency (ER) | payer OTHER, SELFPAY ==
[2021-12-24 01:16] VITALS: BP 160/95; PULSE 92; RESP 22; TEMP 36.6; O2SAT 97
--- NOTE | 2021-12-24 01:40 | ED.GENADULT ---
HPI - General Adult General Chief complaint: Shortness of Breath/Dyspnea Stated complaint: asthma exacerbation Time Seen by Provider: 12/24/21 01:32 History of Present Illness HPI narrative: 31-year-old female presenting the emergency department for evaluation of worsening asthma exacerbation. Patient does have history of asthma and seasonal allergies. Patient states she has been taking Claritin for her allergies. Patient states that she did go for a walk tonight and had acute worsening of her symptoms. Patient did try her albuterol inhaler without significant improvement. Related Data Allergies Allergy/AdvReac Type Severity Reaction Status Date / Time No Known Allergies Allergy Verified 12/24/21 01:16 Review of Systems Review of Systems: CONSTITUTIONAL: Denies fever, chills, or sweats. EYES: Denies visual changes, redness, or discharge. ENT: Denies rhinorrhea, congestion, sore throat, or otalgia. CARDIOVASCULAR: Denies chest pain, palpitations, or edema. RESPIRATORY: Shortness of breath GASTROINTESTINAL: Denies abdominal pain, nausea, vomiting, or diarrhea. GENITOURINARY: Denies dysuria or hematuria. SKIN: Denies rash or itching. MUSCULOSKELETAL: Denies back pain, joint pain, or myalgia. NEUROLOGIC: Denies headache, numbness, or weakness. 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 HEAD: normocephalic, atraumatic. EYES: PERRLA/EOMI, conjunctivae clear. NOSE: Normal no drainage THROAT: Pharynx clear, no exudate. NECK: Supple. No adenopathy, no masses. RESPIRATORY: Airway patent, respirations nonlabored. Expiratory wheeze CARDIOVASCULAR: Regular rate and rhythm without murmurs rubs or gallops. ABDOMINAL: Soft, nontender, nondistended, normal bowel sounds MUSCULOSKELETAL: Moves all extremities. Strength/ROM intact, No edema, No calf tenderness. NEURO: Alert. Cranial nerves II through XII intact. Grossly intact SKIN: Warm, dry. Normal Color Course Course Emergency Course: Patient's breath sounds were improved after the breathing treatment. Patient did still have some minor expiratory wheeze but patient states she felt significantly improved. Patient was also treated with 50 mg of p.o. prednisone in the ED. Patient's prescription for albuterol was refilled and she was also provided prednisone as outpatient. Patient was encouraged to have close outpatient follow-up with her primary care physician. Patient was also advised to take Claritin for her seasonal allergies. Patient was comfortable with the plan for discharge and close follow-up. Vital Signs Vital signs: Vital Signs Temperature 97.9 F 12/24/21 01:16 Pulse Rate 92 12/24/21 01:16 Respiratory Rate 22 H 12/24/21 01:16 Blood Pressure 160/95 H 12/24/21 01:16 Pulse Oximetry 97 12/24/21 01:16 Oxygen Delivery Room Air 12/24/21 01:16 Temperature 97.9 F 12/24/21 01:16 Pulse Rate 77 12/24/21 03:33 Respiratory Rate 20 12/24/21 03:33 Blood Pressure 114/75 12/24/21 03:33 Pulse Oximetry 99 12/24/21 03:3
[2021-12-24] MEDS: predniSONE 40 MG, predniSONE 10 MG 50 MG PO (01:48)
[2021-12-24] MEDS: IPRATROPIUM BR 0.02% INH SOLN 0.5 MG/2.5 ML VIAL 1 MG INHALATION (01:52)
[2021-12-24] MEDS: ALBUTEROL SULFATE NEB 2.5 MG/3 ML INH 5 MG INHALATION (01:52)
[2021-12-24 01:53] VITALS: PULSE 102; RESP 20
[2021-12-24 02:08] VITALS: PULSE 79; RESP 20
[2021-12-24 03:33] VITALS: BP 114/75; PULSE 77; RESP 20; O2SAT 99
== END 2021-12-24 03:34 | disposition home or self-care (01) ==
PROVIDERS: Emergency Provider Emergency Medicine; PCP Family Medicine
DX: J45.41 Moderate persistent asthma with (acute) exacerbation (principal); I10 Essential (primary) hypertension; Z79.84 Long term (current) use of oral hypoglycemic drugs
CPT/HCPCS: 94640; 99283; J7512

== ENCOUNTER 2022-03-13 01:46 | Emergency (ER) | payer OTHER, SELFPAY ==
--- NOTE | ~2022-03-13 | XR_ITS ---
EXAMINATION: XR chest 2V DATE: 03/13/2022 02:38 INDICATION: Shortness of breath. Wheezing. TECHNIQUE: Frontal and lateral views of the chest were obtained. COMPARISON: Chest 2 views 08/22/2021 FINDINGS: The chest demonstrates clear lungs without pneumonia, pleural effusion, or pneumothorax. Th e heart size is normal. IMPRESSION: 1. No acute cardiopulmonary disease. Reviewed, dictated and finalized at location A. ACE TENDER
[2022-03-13 01:48] VITALS: BP 157/130; PULSE 113; RESP 24; TEMP 36.6; O2SAT 100
--- NOTE | 2022-03-13 02:02 | ED.SOB ---
HPI - SOB/Dyspnea General Chief Complaint: Shortness of Breath/Dyspnea Stated Complaint: SOB Time Seen by Provider: 03/13/22 01:59 History of Present Illness HPI Narrative: 31-year-old female presents to the emergency room for evaluation of worsening wheezing. Patient has a significant history of asthma exacerbation requiring frequent visits to the emergency room this calendar year. Patient states that she has been taking her rescue inhaler multiple times over the past 5 days, and recently ran out. States that she called 911 earlier today and they gave her a breathing treatment. Related Data Allergies Allergy/AdvReac Type Severity Reaction Status Date / Time No Known Allergies Allergy Verified 03/13/22 01:51 Review of Systems Review of Systems: CONSTITUTIONAL: Denies fever, chills, or sweats. EYES: Denies visual changes, redness, or discharge. ENT: Denies rhinorrhea, congestion, sore throat, or otalgia. CARDIOVASCULAR: Denies chest pain, palpitations, or edema. RESPIRATORY: Reports wheezing, shortness of breath GASTROINTESTINAL: Denies abdominal pain, nausea, vomiting, or diarrhea. GENITOURINARY: Denies dysuria or hematuria. SKIN: Denies rash or itching. MUSCULOSKELETAL: Denies back pain, joint pain, or myalgia. NEUROLOGIC: Denies headache, numbness, dizziness, or weakness. PSYCHIATRIC: Denies anxiety or depression. 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 HEAD: Normocephalic, atraumatic. EYES: Conjunctivae normal, PERRLA and EOMI. ENT: External nose normal, Nares clear, no rhinorrhea or epistaxis. Mucous membranes moist. Oropharynx without tonsillar hypertrophy exudate or other lesions. External ears normal, bilateral TMs normal bilaterally CHEST: Expiratory wheezes HEART: Tachycardic and regular rhythm. No murmur heard. Normal peripheral pulses. EXTREMITIES: Normal range of motion. No edema. No clubbing or cyanosis SKIN: Warm, dry, no rash. No noted wounds NEURO: No focal deficits. Alert and oriented x3. MAEW. CN's II-XI intact bilaterally, normal gait PSYCH: Cooperative. Normal mood and affect. Course Vital Signs Vital signs: Vital Signs Temperature 36.6 C 03/13/22 01:48 Pulse Rate 113 H 03/13/22 01:48 Respiratory Rate 24 H 03/13/22 01:48 Blood Pressure 157/130 H 03/13/22 01:48 Pulse Oximetry 100 03/13/22 01:48 Oxygen Delivery Room Air 03/13/22 01:48 Temperature 36.6 C 03/13/22 01:48 Pulse Rate 107 H 03/13/22 02:30 Respiratory Rate 20 03/13/22 02:30 Blood Pressure 157/130 H 03/13/22 01:48 Pulse Oximetry 100 03/13/22 01:48 Oxygen Delivery Room Air 03/13/22 01:48 MDM - SOB/Dyspnea MDM Narrative Medical decision making narrative: 31-year-old female presented emergency room for evaluation of wheezing. On medical review, patient has been evaluated in the emergency room multiple times this year for asthma exacerbation. Patient states that she ran out of medicine and her rescue inhaler. Was seen at a local [facility] h
[2022-03-13] MEDS: methylPREDNISolone SOD SUCC 125 MG VIAL IV PUSH (02:09)
[2022-03-13] MEDS: ALBUTEROL SULFATE NEB 2.5 MG/3 ML INH 5 MG INHALATION (02:12)
[2022-03-13] MEDS: IPRATROPIUM BR 0.02% INH SOLN 0.5 MG/2.5 ML VIAL INHALATION (02:12)
[2022-03-13 02:15] VITALS: PULSE 106; RESP 22
[2022-03-13 02:30] VITALS: PULSE 107; RESP 20
[2022-03-13 02:55] LABS: Influenza A QL RT-PCR Negative (Negative); Influenza B QL RT-PCR Negative (Negative); RSV RNA, RT-PCR Negative (Negative); SARS-CoV-2 RNA PCR Negative
[2022-03-13] MEDS: ALBUTEROL SULFATE NEB 2.5 MG/3 ML INH INHALATION (02:56)
[2022-03-13 02:58] VITALS: PULSE 108; RESP 21
[2022-03-13 03:08] VITALS: PULSE 113; RESP 21
[2022-03-13 04:19] VITALS: PULSE 78
== END 2022-03-13 03:00 | disposition home or self-care (01) ==
PROVIDERS: Emergency Provider Nurse Practitioner Family; PCP Family Medicine
DX: J45.41 Moderate persistent asthma with (acute) exacerbation (principal); I10 Essential (primary) hypertension
CPT/HCPCS: 71046; 87637; 94640; 96374; 99284; J2930

== ENCOUNTER 2022-10-01 11:47 | Emergency (ER) | payer OTHER, SELFPAY ==
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
[2022-10-01 11:52] VITALS: BP 171/104; PULSE 76; RESP 18; TEMP 36.3; O2SAT 100
[2022-10-01] MEDS: ACETAMINOPHEN 500 MG TABLET 1000 MG PO (14:44)
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
== END 2022-10-01 15:25 | disposition home or self-care (01) ==
PROVIDERS: Emergency Provider Physician Assistant; PCP Family Medicine
DX: S16.1XXA Strain of muscle, fascia and tendon at neck level, initial encounter (principal); S49.91XA Unspecified injury of right shoulder and upper arm, initial encounter; I10 Essential (primary) hypertension; J45.40 Moderate persistent asthma, uncomplicated; M47.812 Spondylosis without myelopathy or radiculopathy, cervical region; M47.814 Spondylosis without myelopathy or radiculopathy, thoracic region; V49.40XA Driver injured in collision with unspecified motor vehicles in traffic accident, initial encounter
CPT/HCPCS: 72125; 72128; 73030; 99284; A9270

== ENCOUNTER 2023-02-23 06:13 | Emergency (ER) | payer OTHER, MEDICAID, SELFPAY ==
[2023-02-23 06:29] VITALS: BP 163/113; PULSE 94; PULSE 98; RESP 18; O2SAT 97; O2SAT 98
--- NOTE | 2023-02-23 06:33 | ED.GENADULT ---
HPI - General Adult General Chief complaint: Shortness of Breath/Dyspnea Stated complaint: ran out on inhaler Time Seen by Provider: 02/23/23 06:29 History of Present Illness HPI narrative: Patient is a 32-year-old female who presents to emergency room with chief complaint of shortness of breath. Patient has prior history of asthma he uses a albuterol inhaler the patient reports she ran out of her inhaler couple days ago and started having shortness of breath approximately 24 hours ago. The patient reports that she has been wheezing reports she has had a prior hospitalization but no prior intubations. Related Data Allergies Allergy/AdvReac Type Severity Reaction Status Date / Time No Known Allergies Allergy Verified 02/23/23 06:33 Review of Systems Review of Systems: A 10 system review of systems was completed on the patient and is negative except for what is stated in the HPI. Nursing and ancillary documentation was reviewed. PMFSH Past Medical History Medical History Anxiety Chronic low back pain Essential (primary) hypertension Moderate persistent asthma Surgical History Surgical History No pertinent past surgical history Family History Family History Mother No pertinent past medical history Social History Social History Smoking status: Never smoker Alcohol intake: current Alcohol use details: Socially Substance use: current Substance use type: marijuana Lack of Transportation: No Lack of Food: Never True Current Housing: I Have Housing Concerned About Future Housing: No Difficulty Paying Gas/Electric Bills: YES Difficulty Paying for Meds: YES Currently Unemployed: YES Education: Trade/Vocational Certificate Difficulty w/ Childcare or Family Care: No Living arrangements: alone Occupation/Education: occupation 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 HEAD: Normocephalic, atraumatic. EYES: PERRLA and EOMI. ENT: Nares clear, no rhinorrhea or epistaxis. Mucous membranes moist. NECK: Supple. CHEST: Wheezing to auscultation. Mild respiratory distress. Accessory muscle use HEART: Regular rate and rhythm. No murmur heard. Normal peripheral pulses. ABDOMEN: Soft, nontender, nondistended, normal active bowel sounds. EXTREMITIES: Normal range of motion. No edema. SKIN: Warm, dry, no rash. NEURO: No focal deficits. Alert and oriented x3. PSYCH: Normal mood and affect. Course Vital Signs Vital signs: Vital Signs Temperature 36.9 C 02/23/23 06:19 Pulse Rate 96 02/23/23 06:19 Respiratory Rate 28 H 02/23/23 06:19 Blood Pressure 180/100 H 02/23/23 06:19 Pulse Oximetry 96 02/23/23 06:19 Oxygen Delivery Room Air 02/23/23 06:19 Temperature 36.9 C 02/23/23 06:19 Pulse Rate 100 02/23/23 06:45 Respiratory Rate 22 H 02/23/23 06:45 Blood Pressure 163/113 H 02/23/23 06:29 Pulse Oximetry 98 02/23/23 06:29 Oxygen Delivery Room Air 02/23/23 06:29 Medical Decision Making Vital Signs Vital Signs: Vital Signs Temperature 36.9 C 02/23/23 06:19 Pulse Rate 96 02/23/23 06:19 Respiratory Rate 28 H 02/23/23 06:19 Blood Pressure 180/100 H 02/23/23 06:19 Pulse Oximetry 96 02/23/23 06:19 Oxygen Delivery Room Air 02/23/23 06:19 Temperature 36.9 C 02/23/23 06:19 Pulse Rate 100 02/23/23 06:45 Respiratory Rate 22 H 02/23/23 06:45 Blood Pressure 163/113 H 02/23/23 06:29 Pulse Oximetr
[2023-02-23] MEDS: methylPREDNISolone SOD SUCC 125 MG VIAL IV PUSH (06:41)
[2023-02-23 06:45] VITALS: PULSE 100; RESP 22
[2023-02-23] MEDS: ALBUTEROL SULFATE NEB 2.5 MG/3 ML INH INHALATION (06:45)
[2023-02-23] MEDS: IPRATROPIUM BR 0.02% INH SOLN 0.5 MG/2.5 ML VIAL INHALATION (06:45)
[2023-02-23 07:06] VITALS: PULSE 114; RESP 22
[2023-02-23 07:30] VITALS: BP 164/90; PULSE 96; RESP 20; TEMP 36.8; O2SAT 100
== END 2023-02-23 07:32 | disposition home or self-care (01) ==
PROVIDERS: Emergency Provider Emergency Medicine; PCP Family Medicine
DX: J45.31 Mild persistent asthma with (acute) exacerbation (principal); I10 Essential (primary) hypertension
CPT/HCPCS: 94640; 96374; 99284; J2930

== ENCOUNTER 2023-03-29 12:09 | Observation (INO) | payer OTHER, MEDICAID, SELFPAY ==
[2023-03-29] VITALS (22 sets, daily range): BP systolic 128–188; BP diastolic 75–113; PULSE 78–115; RESP 15–38; TEMP 36.2–36.7; O2SAT 94–100; BMI 37.0
--- NOTE | ~2023-03-29 | XR_ITS ---
XR chest 1V portable DATE: 03/29/2023 12:46 INDICATION: Asthma flare TECHNIQUE: Portable upright AP chest on 03/29/2023 at 1237 hours COMPARISON: 03/13/2022 2 view chest FINDINGS: Normal heart size. No hilar or mediastinal enlargement. No pulmonary infiltrate or consolid ation, pleural effusion or pulmonary vascular congestion or pneumothorax. Included skeletal structure s are unremarkable. IMPRESSION: No active disease Reviewed, dictated and finalized at location A. R RETORT IMPRESSION: No active disease
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
[2023-03-29] MEDS: predniSONE 20 MG TABLET 60 MG PO (12:21)
--- NOTE | 2023-03-29 12:22 | ECG_ITS ---
Measurements Intervals [place] Rate: 101 P: 69 WV: 181 QRS: 61 QRSD: 81 T: 46 QT: 327 QTc: 426 Interpretive Statements SINUS TACHYCARDIA BASELINE WANDER- I, II, III, AVR, AVL, AVF, V1-V6 BORDERLINE ECG COMPARED TO ECG 05/14/2021 07:35:33 NO SIGNIFICANT CHANGES Electronically Signed On 03-30-2023 14:53:03 BUSINESS UNIT LEADER by Delfino Silva D.O.
[2023-03-29] MEDS: EPINEPHrine HCL INJ 1 MG/ML AMPUL 0.3 MG SUB-Q (12:25)
[2023-03-29] MEDS: ALBUTEROL SULFATE NEB 2.5 MG/3 ML INH 10 MG INHALATION ×2 (12:39→14:35)
[2023-03-29 13:49] LABS: Alveolar/Arterial O2 Gradient 112.7 mmHg; Base Excess ABG 0.1 mEq/l (+/-2.0); Fractional Inspired Oxygen 52 %; HCO3 ABG 26.3 mEq/l (22.0-26.0); Oxygen Content ABG 19.9 %vol (16.0-22.0); Oxygen Saturation ABG 99.3 % (95.0-100.0); Oxyhemoglobin 98.3 % THb (90.0-100.0); PO2 ABG 203.2 mmHg (80.0-100.0); PO2 FiO2 Ratio Arterial Blood 3.91 %; Total Hemoglobin 14.1 g/dL (12.0-18.0); pH ABG 7.348 (7.350-7.450)
[2023-03-29 13:52] LABS: Device OTHER DEVICE; Modified Allen's Test Pass; Site Drawn LEFT RADIAL
[2023-03-29] MEDS: ALBUTEROL SULFATE NEB 2.5 MG/3 ML INH INHALATION ×3 (17:15→22:29)
[2023-03-29] MEDS: methylPREDNISolone SOD SUCC 125 MG VIAL 62.5 MG IV PUSH ×2 (18:40→23:14)
--- NOTE | 2023-03-29 20:34 | ADMGEN ---
This patient, Stefania Caballero, was admitted to 3 Med Surg Room 320-01. Patient/family oriented to hospital policies and general routines including ID bracelet, bed and alarms, visiting hours, pain management, procedures, bathroom and other care routines, personal items, smoking policy, room service/diet, and visiting hours. Information on how to activate the Rapid Response Team has been discussed. Patient/Family are encouraged to report perceived risks to care and to ask questions if they do not understand what they are told or what they should do.
[2023-03-29 21:50] LABS: Basophils Percent Auto 0.3 % (0.2-1.2); Hematocrit 44.8 % (37.0-47.0); Hemoglobin 13.5 g/dL (12.0-15.0); Immature Granulocyte Absolute 0.06 K/mm3 (0.00-0.031); Immature Granulocyte Percent A 0.5 % (0-0.5); Lymphocytes Absolute Auto 0.48 K/mm3 (0.9-3.2); Mean Corpuscular HGB Conc 30.1 g/dl (32-36); Mean Corpuscular Hemoglobin 27.2 pg (26-34); Mean Corpuscular Volume 90.3 fl (80-100); Mean Platelet Volume 10.5 fl (7.4-10.4); Monocytes Absolute Auto 0.1 K/mm3 (0.1-0.6); Monocytes Percent Auto 1.1 % (2.6-8.5); Neutrophils Absolute Auto 11.3 K/mm3 (1.3-6.7); Neutrophils Percent Auto 94.1 % (45.5-73.1); Platelet Count Result 297 k/mm3 (150-375); Red Blood Count 4.96 M/mm3 (4.2-5.4); Red Cell Distribution Width 14.4 % (11.5-14.5)
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
[2023-03-29 22:04] LABS: Anion Gap 15 mmol/L (8-16); Blood Urea Nitrogen 9 mg/dL (7-17); Calcium 9.5 mg/dL (8.4-10.2); Carbon Dioxide 20 mmol/L (22-30); Chloride 104 mmol/L (98-107); Estimated CRCL calculation 112 ml/min; Estimated Glomerular Filt Rate > 60; Glucose 203 mg/dL (65-110); Magnesium 1.8 mg/dL (1.6-2.3); Potassium 3.8 mmol/L (3.4-5.0); Sodium 139 mmol/L (137-145)
[2023-03-29 22:08] LABS: Lactic Acid Reflex 6.3 mmol/L (0.7-2.0)
[2023-03-29] MEDS: LACTATED RINGERS 1,000 ML 999 ML IV CONT (23:10)
[2023-03-30] VITALS (14 sets, daily range): BP systolic 136–153; BP diastolic 56–71; PULSE 95–110; RESP 16–20; TEMP 35.7–36.5; O2SAT 95–97; BMI 37.0
[2023-03-30 00:03] LABS: Hemoglobin A1C 6.7 % (<5.7)
[2023-03-30 00:48] LABS: Reflex Lactic Acid Yes or No Add Lactic
[2023-03-30 01:51] LABS: Lactic Acid 5.2 mmol/L (0.7-2.0)
[2023-03-30] MEDS: FAMOTIDINE 20 MG TABLET PO ×3 (01:54→21:01)
[2023-03-30] MEDS: LACTATED RINGERS 1,000 ML 999 ML IV CONT (01:54)
[2023-03-30] MEDS: ALBUTEROL SULFATE NEB 2.5 MG/3 ML INH INHALATION ×5 (03:24→23:40)
[2023-03-30 03:26] LABS: Appearance Urine Clear (Clear); Bacteria Urine None Seen /hpf; Bilirubin Urine Negative (Negative); Blood Urine 3+ (Negative); Color Urine Yellow (Yellow); Glucose Urine UA 3+ mg/dL (Negative); Ketones Urine Trace mg/dL (Negative); Leukocyte Esterase Ur Negative LEU/UL (Negative); Nitrate Urine Negative (Negative); Non Pathogenic Casts 0-2; Protein Urine Negative (Negative); RBC Urine 21-50 /hpf (0-2); Specific Grav Ur 1.014 (1.001-1.035); Squamous Epithelial Cell Urine Few /hpf (Few); Urobilinogen Urine 0.2 mg/dL (<2.0); pH Urine 5.5 (5.0-9.0)
[2023-03-30 03:29] LABS: Add Urine Microscopic? YES
[2023-03-30] MEDS: methylPREDNISolone SOD SUCC 125 MG VIAL 62.5 MG IV PUSH (06:12)
[2023-03-30 07:01] LABS: Basophils Percent Auto 0.2 % (0.2-1.2); Hematocrit 41.9 % (37.0-47.0); Hemoglobin 12.6 g/dL (12.0-15.0); Immature Granulocyte Absolute 0.13 K/mm3 (0.00-0.031); Immature Granulocyte Percent A 0.9 % (0-0.5); Lymphocytes Absolute Auto 0.92 K/mm3 (0.9-3.2); Lymphocytes Percent Auto 6.1 % (18.3-44.2); Mean Corpuscular HGB Conc 30.1 g/dl (32-36); Mean Corpuscular Volume 89.7 fl (80-100); Mean Platelet Volume 11.1 fl (7.4-10.4); Monocytes Absolute Auto 0.2 K/mm3 (0.1-0.6); Monocytes Percent Auto 1.4 % (2.6-8.5); Neutrophils Absolute Auto 13.8 K/mm3 (1.3-6.7); Neutrophils Percent Auto 91.4 % (45.5-73.1); Platelet Count Result 288 k/mm3 (150-375); Red Blood Count 4.67 M/mm3 (4.2-5.4); Red Cell Distribution Width 14.4 % (11.5-14.5); White Blood Count 15.1 K/mm3 (4.5-10.0)
[2023-03-30 07:09] LABS: Lactic Acid Reflex 2.2 mmol/L (0.7-2.0)
[2023-03-30 07:12] LABS: Alanine Aminotransferase 20 U/L (6-35); Albumin Level 3.9 g/dL (3.5-5.1); Alkaline Phosphatase 46 U/L (38-126); Anion Gap 11 mmol/L (8-16); Aspartate Amino Transferase 19 U/L (14-36); Bilirubin,Total 0.3 mg/dL (0.2-1.3); Blood Urea Nitrogen 9 mg/dL (7-17); Calcium 9.4 mg/dL (8.4-10.2); Carbon Dioxide 20 mmol/L (22-30); Chloride 105 mmol/L (98-107); Estimated CRCL calculation 127 ml/min; Estimated Glomerular Filt Rate > 60; Glucose 244 mg/dL (65-110); Potassium 4.1 mmol/L (3.4-5.0); Sodium 136 mmol/L (137-145)
[2023-03-30 07:29] LABS: Glucose Point of Care 217 mg/dl (65-105)
[2023-03-30] MEDS: predniSONE 20 MG TABLET 40 MG PO (08:40)
[2023-03-30] MEDS: INSULIN ASPART (*BKC) 100 UNITS/ML SUB-Q ×5 (08:41→21:02)
[2023-03-30] MEDS: metFORMIN HCL 500 MG TABLET PO (10:30)
[2023-03-30 11:24] LABS: Influenza A QL RT-PCR Negative (Negative); Influenza B QL RT-PCR Negative (Negative); RSV RNA, RT-PCR Negative (Negative); SARS-CoV-2 RNA PCR Negative (Negative)
[2023-03-30 11:32] LABS: Glucose Point of Care 259 mg/dl (65-105)
--- NOTE | 2023-03-30 12:39 | PM.IMPN ---
Progress Note: A&P Assessment and Plan (1) DM type 2 (diabetes mellitus, type 2): Code(s): E11.9 - Type 2 diabetes mellitus without complications Status: Acute (2) Acute asthma flare: Code(s): J45.901 - Unspecified asthma with (acute) exacerbation Status: Acute Plan 32-year-old female with past medical history of asthma presented with worsening shortness of breaths. 1. Acute asthma attack: Currently on room air COVID, RSV, influenza negative Continue with albuterol Will add Symbicort Continue with short course of steroid/prednisone 2. UTI: Patient slightly tachycardic Await urine culture Will start on ceftriaxone 3. Diabetes mellitus: Blood glucose checked t.i.d. a.c. 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 DVT prophylaxis: Heparin subQ 5. Code status: Full 6. Disposition: Pending improvement Time Spent With Patient Time with patient: 15 - 25 minutes Subjective Date/time seen: 03/30/23 12:39 Interval history: Feeling better, currently on room air Review of Systems Review of Systems: All systems reviewed & are unremarkable except as noted in HPI and below Exam Const: General: comfortable and no acute distress HENMT: Face/Nose/Sinus: Normal nares present Eyes: Sclera: sclerae normal Neck: Neck: supple Resp: Effort & Inspection: normal respiratory effort Auscultation: clear to auscultation bilaterally Cardio: Rate: tachycardic Rhythm: regular rhythm Other: S1-S2 present without murmur, rub, ectopy GI: GI Palp: Yes Soft to palpation Auscultation: normal bowel sounds Skin: General skin exam: normal color and no rashes or lesions noted Wounds: no wounds Neuro: Speech: normal speech Other: A/Ox4 Extrem: General: normal to inspection Psych: Mental Status: mental status grossly normal Affect: normal affect Other: Good insight and judgment, pleasant. Objective Data Vital Signs Vital Signs: Vital Signs - 24 hr 03/29/23 12:51 03/29/23 13:54 03/29/23 14:36 Temperature Pulse Rate 90 94 115 H Respiratory Rate 38 H 24 H 20 Blood Pressure Pulse Oximetry Oxygen Delivery 03/29/23 13:16 03/29/23 13:30 03/29/23 14:17 Temperature 97.8 F Pulse Rate 80 78 Respiratory Rate 16 16 Blood Pressure 136/80 135/79 Pulse Oximetry 100 100 98 Oxygen Delivery 03/29/23 14:47 03/29/23 16:00 03/29/23 17:15 Temperature 97.6 F Pulse Rate 80 95 110 H Respiratory Rate 15 20 20 Blood Pressure 129/76 Pulse Oximetry 100 Oxygen Delivery 03/29/23 17:24 03/29/23 17:00 03/29/23 15:30 Temperature 98.0 F 97.8 F Pulse Rate 114 H 90 90 Respiratory Rate 20 16 15 Blood Pressure 132/76 136/78 Pulse Oximetry 98 100 Oxygen Delivery 03/29/23 16:01 03/29/23 18:13 03/29/23 18:00 Temperature 97.8 F Pulse Rate 90 112 H Respiratory Rate 16 20 Blood Pressure 137/80 Pulse Oximetry 94 98 Oxygen Delivery Room Air 03/29/23 18:10 03/29/23 20:13 03/29/23 22:10 Temperature 97.2 F L Pulse Rate 108 H 112 H Respiratory Rate 20 16 Blood Pressure 128/78 Pulse Oximetry 98 Oxygen Delivery Room Air 03/29/23 22:28 03/29/23 22:35 03/30/23 03:24 Temperature Pulse Rate 113 H 105 H Respiratory Rate 20 20 Blood Pressure Pulse Oximetry 98 Oxygen Delivery Room Air 03/30/23 03:49 03/30/23 04:37 03/30/23 09:37 Temperature 97.7 F Pulse Rate 107 H 110 H 105 H Respiratory Rate 20 16 20 Blood Pressure 136/56 L Pulse Oximetry 96 Oxygen Delivery 03/30/23 09:40 03/30/23 09:47 Temperature Pulse Rate 102 H Respiratory Rate 20 Blood Pressure Pulse Oximetry 95 Oxygen Delivery Room Air Intake/Output Intake/Output: Intake & Output 03/27/23 03/28/23 03/29/23 03/30/23 23:59 23:59 23:59 23:59 Intake Total 1790 Output Total 500 Balance 1290
[2023-03-30] MEDS: FLUTICASONE/SALMETEROL 115-21 MCG INHALER 1 PUFF 2 PUFF INHALATION ×2 (13:33→20:00)
[2023-03-30 16:24] LABS: Glucose Point of Care 256 mg/dl (65-105)
[2023-03-30 21:24] LABS: Glucose Point of Care 234 mg/dl (65-105)
[2023-03-31 04:00] VITALS: PULSE 99; RESP 16
[2023-03-31] MEDS: ALBUTEROL SULFATE NEB 2.5 MG/3 ML INH INHALATION ×2 (04:00→09:44)
[2023-03-31 04:22] VITALS: PULSE 95; RESP 16
[2023-03-31 06:14] VITALS: BP 121/60; PULSE 89; RESP 18; TEMP 36.1; O2SAT 96
[2023-03-31 07:04] LABS: Basophils Percent Auto 0.2 % (0.2-1.2); Eosinophils Percent Auto 0.1 % (0-4.4); Hematocrit 39.1 % (37.0-47.0); Hemoglobin 11.7 g/dL (12.0-15.0); Immature Granulocyte Absolute 0.18 K/mm3 (0.00-0.031); Immature Granulocyte Percent A 1.1 % (0-0.5); Lymphocytes Absolute Auto 2.24 K/mm3 (0.9-3.2); Lymphocytes Percent Auto 13.4 % (18.3-44.2); Mean Corpuscular HGB Conc 29.9 g/dl (32-36); Mean Corpuscular Hemoglobin 27.2 pg (26-34); Mean Corpuscular Volume 90.9 fl (80-100); Mean Platelet Volume 10.7 fl (7.4-10.4); Monocytes Absolute Auto 1.2 K/mm3 (0.1-0.6); Monocytes Percent Auto 6.9 % (2.6-8.5); Neutrophils Absolute Auto 13.1 K/mm3 (1.3-6.7); Neutrophils Percent Auto 78.3 % (45.5-73.1); Platelet Count Result 280 k/mm3 (150-375); Red Cell Distribution Width 14.6 % (11.5-14.5); White Blood Count 16.7 K/mm3 (4.5-10.0)
[2023-03-31 07:13] LABS: Anion Gap 6 mmol/L (8-16); Blood Urea Nitrogen 12 mg/dL (7-17); Calcium 8.7 mg/dL (8.4-10.2); Carbon Dioxide 26 mmol/L (22-30); Chloride 107 mmol/L (98-107); Estimated CRCL calculation 112 ml/min; Estimated Glomerular Filt Rate > 60; Glucose 136 mg/dL (65-110); Potassium 3.3 mmol/L (3.4-5.0); Sodium 139 mmol/L (137-145)
[2023-03-31 07:34] LABS: Glucose Point of Care 131 mg/dl (65-105)
[2023-03-31 08:00] VITALS: PULSE 102; O2SAT 97
[2023-03-31] MEDS: INSULIN ASPART (*BKC) 100 UNITS/ML SUB-Q ×3 (08:45→11:39)
[2023-03-31] MEDS: metFORMIN HCL XR 500 MG TAB.SR.24H 750 MG PO (08:48)
[2023-03-31] MEDS: predniSONE 20 MG TABLET 40 MG PO (08:50)
[2023-03-31] MEDS: FAMOTIDINE 20 MG TABLET PO (08:50)
[2023-03-31] MEDS: POTASSIUM CHLORIDE 20 MEQ ER TABLET 40 MEQ PO (08:50)
[2023-03-31 09:46] VITALS: PULSE 90; RESP 20
[2023-03-31] MEDS: FLUTICASONE/SALMETEROL 115-21 MCG INHALER 1 PUFF 2 PUFF INHALATION (09:46)
[2023-03-31 09:57] VITALS: PULSE 96; RESP 20
--- NOTE | 2023-03-31 11:11 | PM.DS ---
DS: Admitting Diagnosis Discharge Date 03/31/23 Admitting Diagnosis SOB DS: Discharge Diagnosis Discharge Diagnosis (1) DM type 2 (diabetes mellitus, type 2): Code(s): E11.9 - Type 2 diabetes mellitus without complications Status: Chronic Assessment and Plan: termite helper spoke with client continue metformin ER 500 mg BID at d/c (2) Acute asthma flare: Code(s): J45.901 - Unspecified asthma with (acute) exacerbation Status: Acute Assessment and Plan: Currently on room air COVID, RSV, influenza negative Continue with albuterol d/c with Advair Continue with short course of prednisone at d/c DS: Summary Hospital Course Hospital Course: 32-year-old female admitted for severe shortness of breath with PMH of asthma and DM2. Patient reported that she was around smoke did smoke marijuana the night prior to admission. She awaoke with shortness of breath and was currently out of home albuterol. Reported tongue itching and throat itching, no hives or rash. Took 2 Benadryl (25 mg) at home without relief. Reports her exacerbations are typically accompanied by a heavy, dry cough. Patient no longer in any distress, not reporting any current tongue itching, throat itching, or rashes. Denies any fever, chills, body aches, or fatigue. Her UA did not show any growth, d/c Rocephin. Will continue Advair at d/c. termite helper saw and spoke with the patient. Education given, will d/c with metformin 500 mg ER BID to limit GI upset. Encouraged to follow up with PCP, and smoking cessation. Status at Discharge Functional status at discharge: independent ambulation Overall status at discharge: patient is back to baseline Time Spent with Patient Time attestation: Total time spent providing and/or coordinating discharge services: Exam Narrative: General: comfortable and no acute distress HENMT: Normal nares present. No erythema, swelling, or tongue swelling. Eyes: EOMI, PERRLA Resp: normal respiratory effort, clear to auscultation bilaterally, mildly diminished at bases. Cardio: RRR, S1-S2 present without murmur, rub, ectopy GI: soft, non-tender. BS present and active. Skin: normal color and no rashes or lesions noted, no wounds Neuro: A&O x3; normal speech, 5/5 motor strength present throughout; normal sensation Extrem: normal to inspection, no edema. Psych: normal affect; Good insight and judgment, pleasant. DS: Data Data Completed and Pending Labs on day of discharge: Labs from last 24 hours 03/31/23 03/31/23 03/30/23 07:29 06:50 20:24 WBC 16.7 H RBC 4.30 Hgb 11.7 L Hct 39.1 MCV 90.9 MCH 27.2 MCHC 29.9 L RDW 14.6 H Plt Count 280 MPV 10.7 H Immature Gran % (Auto) 1.1 H Neut % (Auto) 78.3 H Lymph % (Auto) 13.4 L [place] % (Auto) 6.9 Eos % (Auto) 0.1 Baso % (Auto) 0.2 Lymph # (Auto) 2.24 [place] # (Auto) 1.2 H Eos # (Auto) 0.0 Baso # (Auto) 0.0 Abs Immat Gran (auto) 0.18 H Absolute Neuts (auto) 13.1 H Absolute Nucleated RBC 0.0 Nucleated RBC % 0.0 Sodium 139 Potassium 3.3 L Chloride 107 Carbon Dioxide 26 Anion Gap 6 L BUN 12 Creatinine 0.80 Estim Creat Clear Calc 112 Estimated GFR > 60 Glucose 136 H POC Capillary Glucose 131 H 234 H Calcium 8.7 Influenza A (RT-PCR) Influenza B (RT-PCR) RSV (RT-PCR) SARS-CoV-2 RNA (RT-PCR) 03/30/23 03/30/23 03/30/23 16:20 11:11 10:39 WBC RBC Hgb Hct MCV MCH MCHC RDW Plt Count MPV Immature Gran % (Auto) Neut % (Auto) Lymph % (Auto) [place] % (Auto) Eos % (Auto) Baso % (Auto) Lymph # (Auto) [place] # (Auto) Eos # (Auto) Baso # (Auto) Abs Immat Gran (auto) Absolute Neuts (auto) Absolute Nucleated RBC Nucleated RBC % Sodium Potassium Chloride Carbon Dioxide Anion Gap BUN Creatinine Estim Creat Clear C
[2023-03-31 11:26] LABS: Glucose Point of Care 249 mg/dl (65-105)
== END 2023-03-31 12:30 | disposition home or self-care (01) ==
LOC: ANHED 16:17 → ANH3MEDSUR 20:07
PROVIDERS: Internal Medicine; Student in an Organized Health Care Education/Training Program; Admitting Provider General Practice; Emergency Provider Emergency Medicine; PCP Family Medicine; Visit Provider Internal Medicine
DX: J45.901 Unspecified asthma with (acute) exacerbation (principal); E11.9 Type 2 diabetes mellitus without complications; R00.0 Tachycardia, unspecified; F41.9 Anxiety disorder, unspecified; N39.0 Urinary tract infection, site not specified; Z20.822 Contact with and (suspected) exposure to COVID-19; I10 Essential (primary) hypertension; F10.90 Alcohol use, unspecified, uncomplicated; F12.90 Cannabis use, unspecified, uncomplicated; Z79.51 Long term (current) use of inhaled steroids
CPT/HCPCS: 36415; 36600; 71045; 80048; 80053; 81001; 82805; 82948; 83036; 83605; 83735; 85025; 87086; 87088; 87637; 93005; 94640; 96365; 96372; 96375; 96376; 99285; A9270; G0378; J0171; J0696; J1815; J2930; J7120; J7512

== ENCOUNTER 2023-04-22 23:45 | Inpatient (IN) | payer OTHER, MEDICAID, SELFPAY ==
--- NOTE | ~2023-04-22 | XR_ITS ---
Portable chest x-ray Comparison: 03/29/2023 Clinical History: Dyspnea Findings: Lungs are clear, without focal consolidation or pleural effusion. Cardiomediastinal silho uette is stable. Bones and soft tissues are unremarkable. Impression: Normal chest. Reviewed, dictated and finalized at location . ERIZER TENDER Impression: Normal chest.
[2023-04-22 23:47] VITALS: BP 119/117; PULSE 125; RESP 28; TEMP 36.3; O2SAT 78
[2023-04-22] MEDS: ONDANSETRON INJ 4 MG/2 ML VIAL 8 MG IV PUSH (23:49)
[2023-04-22] MEDS: EPINEPHrine HCL INJ 1 MG/ML AMPUL 0.3 MG IM (23:49)
--- NOTE | 2023-04-22 23:49 | PC.NURSE ---
Patient brought to ED via pov in respiratory distress. Was unable to get self out of car. Patient attempted to stand and pivot to wheelchair and her knees buckled. Patient was caught by this RN and STONE Pacheco. Patient's boyfriend stated the patient has history of asthma and lost her inhaler. Patient unable to speak with short, shallow breaths and air hunger. Pale skin. Patient 78% on room air in triage and moved immediately to ED room 2.
[2023-04-22 23:50] VITALS: PULSE 120; RESP 27
[2023-04-22 23:55] VITALS: PULSE 120; RESP 28; O2SAT 100
[2023-04-23] VITALS (41 sets, daily range): BP systolic 112–176; BP diastolic 69–112; PULSE 100–132; RESP 15–28; TEMP 36.8–36.9; O2SAT 95–100; BMI 36.9
[2023-04-23] LABS: Basophils Absolute Auto 0.1 K/mm3 (0.0-0.1); Basophils Percent Auto 0.6 % (0.2-1.2); Eosinophils Percent Auto 4.6 % (0-4.4); Hematocrit 45.2 % (37.0-47.0); Hemoglobin 13.3 g/dL (12.0-15.0); Immature Granulocyte Percent A 0.5 % (0-0.5); Lymphocytes Absolute Auto 7.54 K/mm3 (0.9-3.2); Lymphocytes Percent Auto 34.7 % (18.3-44.2); Mean Corpuscular HGB Conc 29.4 g/dl (32-36); Mean Corpuscular Hemoglobin 26.8 pg (26-34); Mean Corpuscular Volume 91.1 fl (80-100); Mean Platelet Volume 10.8 fl (7.4-10.4); Monocytes Absolute Auto 1.6 K/mm3 (0.1-0.6); Monocytes Percent Auto 7.5 % (2.6-8.5); Neutrophils Absolute Auto 11.4 K/mm3 (1.3-6.7); Neutrophils Percent Auto 52.1 % (45.5-73.1); Platelet Count Result 380 k/mm3 (150-375); Red Blood Count 4.96 M/mm3 (4.2-5.4); Red Cell Distribution Width 14.1 % (11.5-14.5); White Blood Count 21.7 K/mm3 (4.5-10.0)
--- NOTE | 2023-04-23 | ECG_ITS ---
Measurements Intervals [place] Rate: 120 P: 83 IA: 162 QRS: 59 QRSD: 90 T: 79 QT: 322 QTc: 456 Interpretive Statements SINUS TACHYCARDIA COMPARED TO ECG 03/29/2023 12:22:57 NO SIGNIFICANT CHANGES Electronically Signed On 04-23-2023 13:58:06 BATCH TESTER by Lisseth Garcia M.D.
[2023-04-23] MEDS: MAGNESIUM SULF 2 GM/WATER 50ML 2 GM/50 ML BAG IVPB (00:06)
[2023-04-23] MEDS: SODIUM CHLORIDE 0.9% IV 2,000 ML 999 ML IV CONT (00:07)
[2023-04-23 00:09] LABS: Anisocytosis 1+ (NORMAL); Platelet Estimate Adequate (Adequate); Schistocytes None Seen (NORMAL); Stomatocytes 1+ (NORMAL)
[2023-04-23 00:11] LABS: Alanine Aminotransferase 27 U/L (6-35); Albumin Level 4.6 g/dL (3.5-5.1); Alkaline Phosphatase 49 U/L (38-126); Anion Gap 15 mmol/L (8-16); Aspartate Amino Transferase 30 U/L (14-36); Bilirubin,Total 0.5 mg/dL (0.2-1.3); Blood Urea Nitrogen 4 mg/dL (7-17); Calcium 9.8 mg/dL (8.4-10.2); Carbon Dioxide 23 mmol/L (22-30); Chloride 102 mmol/L (98-107); Estimated CRCL calculation 100 ml/min; Estimated Glomerular Filt Rate > 60; Glucose 208 mg/dL (65-110); Potassium 3.9 mmol/L (3.4-5.0); Sodium 140 mmol/L (137-145)
[2023-04-23 00:19] LABS: Alveolar/Arterial O2 Gradient < 0.0 mmHg; Base Excess ABG -6.9 mEq/l (+/-2.0); Fractional Inspired Oxygen 40 %; HCO3 ABG 20.5 mEq/l (22.0-26.0); Oxygen Content ABG 18.9 %vol (16.0-22.0); Oxygen Saturation ABG 99.6 % (95.0-100.0); Oxyhemoglobin 98.4 % THb (90.0-100.0); PCO2 ABG 48.8 mmHg (35.0-45.0); PO2 ABG 315.3 mmHg (80.0-100.0); PO2 FiO2 Ratio Arterial Blood > 0.00 %; Total Hemoglobin 13.1 g/dL (12.0-18.0)
[2023-04-23 00:21] LABS: Device NON-INVASIVE VENT; Modified Allen's Test Pass; Site Drawn RIGHT RADIAL; pH ABG 7.242 (7.350-7.450)
[2023-04-23 00:22] LABS: Non-Invasive Expiratory Pressure 6 CMH2O; Non-Invasive Inspiratory Pressure 12 CMH2O; Non-Invasive Vent Rate 20 /MIN
[2023-04-23 00:37] LABS: Influenza A QL RT-PCR Negative (Negative); Influenza B QL RT-PCR Negative (Negative); RSV RNA, RT-PCR Negative (Negative); SARS-CoV-2 RNA PCR Negative (Negative)
[2023-04-23] MEDS: IPRATROPIUM BR 0.02% INH SOLN 0.5 MG/2.5 ML VIAL 1 MG INHALATION (00:40)
[2023-04-23] MEDS: ALBUTEROL SULFATE NEB 2.5 MG/3 ML INH 10 MG INHALATION (00:40)
--- NOTE | 2023-04-23 01:02 | ED.GENADULT ---
HPI - General Adult General Chief complaint: Shortness of Breath/Dyspnea Stated complaint: resp distress History of Present Illness HPI narrative: This is a 32-year-old female with history of asthma presenting respiratory distress. Patient has ran out of her albuterol and does not have a nebulizer at home. Patient states she has been having 4-5 days of worsening shortness of breath subjective fevers and a productive cough. Related Data Allergies Allergy/AdvReac Type Severity Reaction Status Date / Time No Known Allergies Allergy Verified 02/23/23 06:33 [facility] Past Medical History Medical History Anxiety Chronic low back pain DM type 2 (diabetes mellitus, type 2) Essential (primary) hypertension Moderate persistent asthma Surgical History Surgical History No pertinent past surgical history Family History Family History Mother No pertinent past medical history Social History Social History Smoking status: Never smoker Second hand tobacco smoke exposure: No Alcohol intake: current Drinks per week: 1 Alcohol use details: Socially Substance use: never Substance use type: marijuana Do You Feel Safe in your Home?: Yes Lack of Transportation: No Lack of Food: Never True Current Housing: I Have Housing Concerned About Future Housing: No Difficulty Paying Gas/Electric Bills: No Difficulty Paying for Meds: YES Currently Unemployed: No Education: Trade/Vocational Certificate Difficulty w/ Childcare or Family Care: No Living arrangements: alone 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 EYES: EOMI, NOSE: Atraumatic NECK: Trachea midline RESPIRATORY: One word dyspnea, wheezing in all diaen, try potting CARDIOVASCULAR: tachycardic ABDOMINAL: Non-distended MUSCULOSKELETAl: No obvious deformities NEURO: Alert. Moving 4/4 extremities SKIN:: Warm, dry. Normal color PSYCHIATRIC: Normal affect Course Vital Signs Vital signs: Vital Signs Temperature 97.3 F L 04/22/23 23:47 Pulse Rate 125 H 04/22/23 23:47 Respiratory Rate 28 H 04/22/23 23:47 Blood Pressure 119/117 H 04/22/23 23:47 Pulse Oximetry 78 L 04/22/23 23:47 Oxygen Delivery Room Air 04/22/23 23:47 Temperature 97.3 F L 04/22/23 23:47 Pulse Rate 119 H 04/23/23 00:19 Respiratory Rate 25 H 04/23/23 00:19 Blood Pressure 152/84 H 04/23/23 00:19 Pulse Oximetry 100 04/23/23 00:19 Oxygen Delivery BiPAP 04/23/23 00:10 Medical Decision Making MDM Narrative Medical decision making narrative: -Course: 32-year-old female with poorly controlled asthma presenting ED for respiratory distress. Patient is tripoding, had 1 word dyspnea and hypoxia arrival. Patient immediately placed on BiPAP and given maximal medical management including continuous nebs, epi, magnesium, dexamethasone and 2 L fluid. Patient improves slightly on BiPAP but will continue nebs. workup significant for a white count 21.7. No pneumonia on x-ray. Patient noted subjective fevers cough last days. Could be stress versus infectious. CRP and procalcitonin ordered. Patient received 1st dose of antibiotics in the emergency department until pneumonia is ruled out. patient will be admitted to the ICU for further management. -DDX includes but is not limited to: Asthma exacerbation due to medication noncompliance, pneumonia, viral illness -Co-morbidities complicating care: asthma, medication noncompliance -External
[2023-04-23] MEDS: IPRATROPIUM 0.5 MG/ALBUTEROL SULFATE 2.5 MG AMPUL.NEB 3 ML 12 ML INHALATION (01:05)
[2023-04-23] MEDS: ACETAMINOPHEN 500 MG TABLET 1000 MG PO (01:09)
[2023-04-23 01:22] LABS: CRP < 0.5 mg/dL (<1.0)
--- NOTE | 2023-04-23 02:02 | PM.IMHP ---
H&P: HPI History of Present Illness Date/Time: 04/23/23 02:02 Chief Complaint: Shortness of breath Narrative: This is a 32-year-old female with past medical history significant for asthma, diabetes mellitus patient presents to the emergency room with severe respiratory distress, most of the history has been obtained from who is at bedside patient has had cough and shortness of breath for the last 2 days or so. In emergency room patient was in severe respiratory distress required BiPAP. Patient has been admitted to ICU Review of Systems Review of Systems: ROS unobtainable: Yes unobtainable due to medical condition (Respiratory distress on BiPAP) PMFSH Past Medical History Medical History Anxiety Chronic low back pain DM type 2 (diabetes mellitus, type 2) Essential (primary) hypertension Moderate persistent asthma Surgical History Surgical History No pertinent past surgical history Family History Family History Mother No pertinent past medical history Social History Social History Smoking status: Never smoker Second hand tobacco smoke exposure: No Alcohol intake: current Drinks per week: 1 Alcohol use details: Socially Substance use: never Substance use type: marijuana Do You Feel Safe in your Home?: Yes Lack of Transportation: No Lack of Food: Never True Current Housing: I Have Housing Concerned About Future Housing: No Difficulty Paying Gas/Electric Bills: No Difficulty Paying for Meds: YES Currently Unemployed: No Education: Trade/Vocational Certificate Difficulty w/ Childcare or Family Care: No Living arrangements: alone Occupation/Education: occupation 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 Gender identity (if verbalized by the patient): Female Sexual Orientation (if Verbalized by the Patient): Straight or Heterosexual Spiritual care concerns: No Meds Home Medications and Allergies Home Medications Medication Instructions Recorded Confirmed Type albuterol sulfate 90 mcg/actuation 2 puff inhalation QID PRN 02/23/23 03/29/23 Rx aerosol inhaler shortness of breath or wheezing #8.5 grams fluticasone propionate 115 2 puff inhalation Q12HRT 30 days 03/31/23 Rx mcg-salmeterol 21 mcg/actuation #1 g HFA inhaler (Advair HFA) metformin 500 mg tablet,extended 500 mg PO BID #60 tabs 03/31/23 Rx release 24hr (osmotic) prednisone 20 mg tablet 40 mg PO DAILY@0800 #3 tabs 03/31/23 Rx Allergies Allergy/AdvReac Type Severity Reaction Status Date / Time No Known Allergies Allergy Verified 02/23/23 06:33 Vital Signs Vital Signs - 24 hr 04/22/23 23:47 04/23/23 00:09 04/23/23 00:09 Temperature 97.3 F L Pulse Rate 125 H 125 H 121 H Respiratory Rate 28 H 25 H Blood Pressure 119/117 H Pulse Oximetry 78 L 100 Oxygen Delivery Room Air 04/23/23 00:10 04/23/23 00:19 04/22/23 23:50 Temperature Pulse Rate 119 H 120 H Respiratory Rate 25 H 27 H Blood Pressure 152/84 H Pulse Oximetry 100 100 Oxygen Delivery BiPAP 04/22/23 23:55 04/23/23 00:45 04/23/23 01:05 Temperature Pulse Rate 120 H 115 H 110 H Respiratory Rate 28 H 28 H 26 H Blood Pressure Pulse Oximetry 100 Oxygen Delivery BiPAP 04/23/23 01:39 Temperature Pulse Rate 115 H Respiratory Rate 27 H Blood Pressure Pulse Oximetry 100 Oxygen Delivery BiPAP Exam Narrative: Patient is sitting in a stretcher on BiPAP Const: General: comfortable, no acute distress, well developed, alert, awake and average body habitus Nutritional Appearance: average body habitus Orientation/consciousness: patient oriented x3 Other: Patient is on BiPAP moderate respiratory distress HENMT: Head: normal to ins
[2023-04-23] MEDS: AZITHROMYCIN 500 MG/NS 250 ML 500 MG/250 ML BAG 250 MG IVPB (03:21)
[2023-04-23] MEDS: IPRATROPIUM 0.5 MG/ALBUTEROL SULFATE 2.5 MG AMPUL.NEB 3 ML INHALATION ×6 (04:40→23:31)
--- NOTE | 2023-04-23 06:06 | ADMGEN ---
This patient, Stefania Caballero, was admitted to Intensive Care Unit on 04/23/23 at 0545. Patient/family oriented to hospital policies and general routines including ID bracelet, bed and alarms, visiting hours, pain management, procedures, bathroom and other care routines, personal items, smoking policy, room service/diet, and visiting hours. Information on how to activate the Rapid Response Team has been discussed. Patient/Family are encouraged to report perceived risks to care and to ask questions if they do not understand what they are told or what they should do.
[2023-04-23] MEDS: methylPREDNISolone SOD SUCC 125 MG VIAL 60 MG IV PUSH ×3 (07:30→17:26)
--- NOTE | 2023-04-23 08:11 | WPDCNINT ---
Assessment and Plan Assessment and plan (1) Acute respiratory failure: Code(s): J96.00 - Acute respiratory failure, unspecified whether with hypoxia or hypercapnia Status: Acute Assessment and Plan: Acute hypoxic and hypercarbic respiratory failure secondary to asthma exacerbation. Patient has moderate persistent asthma by history Patient was placed on BiPAP and appears to have improved clinically as she is not tachypneic or using accessory muscles and clinically feels better. She is currently on BiPAP 15/5 30% FiO2. I will obtain repeat ABG Continue Solu-Medrol and bronchodilators. Resume Advair She is afebrile although her WBC is elevated. Her chest x-ray is clear and her CRP and procalcitonin levels are low suggesting against infection PCR for RSV COVID and influenza were negative IV continue azithromycin but discontinue Rocephin at this time as patient does not have any evidence of pneumonia (2) Asthma exacerbation: Code(s): J45.901 - Unspecified asthma with (acute) exacerbation Status: Inactive Assessment and Plan: See above (3) DM type 2 (diabetes mellitus, type 2): Code(s): E11.9 - Type 2 diabetes mellitus without complications Status: Chronic Assessment and Plan: Metformin and sliding scale Plan DVT prophylaxis -SCDs. Will start chemoprophylaxis patient remains bedbound and inactive Nutrition -she is currently NPO but if she is able to be weaned off of BiPAP will start diet Code Status - Full Code Total Critical Care Time - 30 minutes Due to a high probability of clinically significant, life threatening deterioration, the patient required my highest level of preparedness to intervene emergently and I personally spent this critical care time directly and personally managing the patient. This critical care time included obtaining a history; examining the patient; pulse oximetry; ordering and review of studies; arranging urgent treatment with development of a management plan; evaluation of patient's response to treatment; frequent reassessment; and discussions with other providers. It was exclusive of separately billable procedures and treating other patients and teaching time. Please see Assessment and Plan section and the rest of the note for further information on patient assessment and treatment Magnetic Prospecting Operator Consult Note Consult date: 04/23/23 Reason for consult: Acute respiratory failure HPI: Stefania Caballero is a 32 year old female with past medical history of asthma and diabetes presented to ER last night with chief complaint of respiratory distress. Patient states that she ran out of her albuterol and has been having shortness of breath which has been gradually worsening for last 4-5 days with productive cough. She also reported fever subjective to the ER physician. In ER patient was sitting in a tripod position with dyspnea and unable to speak full sentences. Patient was given bronchodilators epinephrine magnesium dexamethasone and IV fluid bolus. She was placed on BiPAP. She was given empiric antibiotics. Patient was admitted to ICU for further evaluation management This morning when I evaluated the patient she continues to be on BiPAP hence history is limited but she states she is feeling better since coming to the hospital. She nodes are head no to pain, shortness a breath dizziness or lightheadedness. No headache. Patient denies fever, chest pain, shortness of breath, cough, nausea vomiting, abdominal pain,, diarrhea, headache or constipation at this time. For review of system was not obtainable as patient is on BiPAP. Review of Systems Review of Systems: ROS unobtainable: Yes unobtainable due to medical condition and unobtainable due to mental status PMFSH Past Medical History Medical History Anxiety Chronic low back pain DM type 2 (diabetes mellitus, type 2) Essential (primary) hypertension Moderat
[2023-04-23 08:32] LABS: Alveolar/Arterial O2 Gradient 40.8 mmHg; Base Excess ABG -6.4 mEq/l (+/-2.0); Fractional Inspired Oxygen 30 %; Oxyhemoglobin 96.8 % THb (90.0-100.0); PCO2 ABG 43.1 mmHg (35.0-45.0); PO2 ABG 122.5 mmHg (80.0-100.0); PO2 FiO2 Ratio Arterial Blood 4.08 %; Total Hemoglobin 13.1 g/dL (12.0-18.0)
[2023-04-23 08:38] LABS: Device BIPAP; Site Drawn RIGHT RADIAL; pH ABG 7.284 (7.350-7.450)
[2023-04-23 08:39] LABS: Expiratory Pressure 5 cmH2O; Inspiratory Pressure 15 cmH2O
[2023-04-23 08:52] LABS: MRSA (PCR) NOT DETECTED (NOT DETECTE)
[2023-04-23] MEDS: FLUTICASONE/SALMETEROL 115-21 MCG INHALER 1 PUFF 2 PUFF INHALATION (09:30)
[2023-04-23] MEDS: INSULIN ASPART (*BKC) 100 UNITS/ML SUB-Q ×2 (11:45→21:00)
[2023-04-23 11:46] LABS: Glucose Point of Care 223 mg/dl (65-105)
--- NOTE | 2023-04-23 14:39 | PM.IMPN ---
Progress Note: A&P Assessment and Plan (1) Acute respiratory failure: Code(s): J96.00 - Acute respiratory failure, unspecified whether with hypoxia or hypercapnia Status: Acute Assessment and Plan: Acute hypoxic and hypercarbic respiratory failure secondary to asthma exacerbation. Patient has moderate persistent asthma by history Patient was placed on BiPAP and appears to have improved clinically as she is not tachypneic or using accessory muscles and clinically feels better. She is currently on BiPAP 15/5 30% FiO2. Issue repeated ABG shows no CO2 retention, Continue Solu-Medrol and bronchodilators. Resume Advair She is afebrile although her WBC is elevated. Her chest x-ray is clear and her CRP and procalcitonin levels are low suggesting against infection PCR for RSV COVID and influenza were negative Continue iV continue azithromycin but discontinue Rocephin at this time as patient does not have any evidence of pneumonia (2) Asthma exacerbation: Code(s): J45.901 - Unspecified asthma with (acute) exacerbation Status: Inactive Assessment and Plan: See above (3) DM type 2 (diabetes mellitus, type 2): Code(s): E11.9 - Type 2 diabetes mellitus without complications Status: Chronic Assessment and Plan: Metformin and sliding scale Plan Patient condition is stable, move patient out of ICU DVT prophylaxis -SCDs. Continue chemoprophylaxis Nutrition regular diet Code Status - Full Code Subjective Date/time seen: 04/23/23 14:39 Interval history: I saw exam patient today, the see patient has a cough with scant phlegm, patient has some shortness breath, but no obvious distress. Patient is afebrile, blood pressure stable, labs reviewed. Patient had leukocytosis 21,700, Exam Narrative: General: Pt is alert awake on BiPAP and in NAD Lungs/Chest: Trachea central decreased BS B/L as patient is obese but no crackles or wheezing. Patient able to speak sentences not tachypneic or in any respiratory distress but on BiPAP Cardiac: RRR. Normal S1 S2. No murmurs Circulation: Pedal pulses are intact and symmetrical. Abdomen: Normal bowel sounds. Obese soft. NT. ND. Extremities: No clubbing, cyanosis or edema. Warm : Rucker in place Neurologic: Follows commands. Moves all 4 extremities PERRL AO x3 Skin: No Rash Objective Data Vital Signs Vital Signs: Vital Signs - 24 hr 04/22/23 23:47 04/23/23 00:09 04/23/23 00:09 Temperature 97.3 F L Pulse Rate 125 H 125 H 121 H Respiratory Rate 28 H 25 H Blood Pressure 119/117 H Pulse Oximetry 78 L 100 Oxygen Delivery Room Air Oxygen Flow Rate Fraction of Inspired Oxygen 04/23/23 00:10 04/23/23 00:19 04/22/23 23:50 Temperature Pulse Rate 119 H 120 H Respiratory Rate 25 H 27 H Blood Pressure 152/84 H Pulse Oximetry 100 100 Oxygen Delivery BiPAP Oxygen Flow Rate Fraction of Inspired Oxygen 04/22/23 23:55 04/23/23 00:45 04/23/23 01:05 Temperature Pulse Rate 120 H 115 H 110 H Respiratory Rate 28 H 28 H 26 H Blood Pressure Pulse Oximetry 100 Oxygen Delivery BiPAP Oxygen Flow Rate Fraction of Inspired Oxygen 04/23/23 01:39 04/23/23 00:31 04/23/23 01:48 Temperature Pulse Rate 115 H 128 H 128 H Respiratory Rate 27 H 28 H 25 H Blood Pressure 176/112 H 132/69 Pulse Oximetry 100 99 100 Oxygen Delivery BiPAP Oxygen Flow Rate Fraction of Inspired Oxygen 04/23/23 02:01 04/23/23 03:13 04/23/23 04:40 Temperature Pulse Rate 117 H 117 H 100 Respiratory Rate 21 H 19 19 Blood Pressure 127/70 Pulse Oximetry 100 100 Oxygen Delivery BiPAP Oxygen Flow Rate Fraction of Inspired Oxygen 04/23/23 05:30 04/23/23 03:30 04/23/23 04:45 Temperature Pulse Rate 105 H 100 100 Respiratory Rate 15 17 20 Blood Pressure Pulse Oximetry 100 100 99 Oxygen Delivery Oxygen Flow Rate Fraction of Inspired Oxygen 04/23/23 05:15 04/23/23
--- NOTE | 2023-04-23 16:13 | PM.CNPUL ---
Assessment and Plan Assessment and plan (1) Asthma with severe asthma attack: Code(s): J45.901 - Unspecified asthma with (acute) exacerbation Status: Acute Assessment and Plan: Patient with a history of asthma for 2 years and multiple ED visits and hospitalization from 03/29/2023 to 03/31/2023. The patient was in her usual state until 131 when she began to clean up her apartment by sweeping and was likely exposed to dust. This has been a trigger for her and she developed wheezing which got progressively worse and was not relieved with albuterol presented to the emergency room in acute respiratory distress with hypoxemia and hypercarbia, leukocytosis, peripheral eosinophilia and with a blood gas of 7.24/49/315 on BiPAP rate of 20 pressures 12/6 and 40%. Patient was treated aggressively with BiPAP, continuous bronchodilators, epinephrine, magnesium, and antibiotics. Currently the patient states she is 85% back to normal, she has no wheezing on exam and is no respiratory distress. Her saturations are 94% on room air. Plan: I will continue Solu-Medrol 60 mg IV q.6 hours, continue DuoNebs q.4 hours. Agree with continuation of azithromycin pending blood cultures. I will discontinue Advair as she is on high doses of steroids and maximal doses of beta agonist with her DuoNebs a q.4 hours. I will send a urine toxicology study. Will follow with you. History of Present Illness History of Present Illness Consult date: 04/23/23 Chief complaint: Asthma Narrative: 04/23/2023: This is a new pulmonary consult for asthma. 32-year-old woman with a history of hypertension, anxiety and asthma. Patient was diagnosed with asthma in 2021. She says her asthma came on after she injured her toe and was unable to walk in gained significant amount of weight. Patient has had multiple emergency department visits for asthma last of which was 02/23/2023 when she ran out of her medicines. She was discharged on prednisone and Wixela 100-50 1 puff b.i.d.. Patient was admitted to the hospital on March 29, 2023 and discharged on 03/31/2023 for an asthma exacerbation. She was discharged on prednisone 40 for 3 days, a purple inhaler and albuterol. She says she was unable to get the prednisone because the pharmacy did not have it. She says she did not get the purple inhaler until 1 week after discharge. 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 She did this on 04/18 and 04/19/23. She woke up on 04/22 in her usual state of health with no respiratory issues. The patient is in the middle of moving out of her apartment and was moving and then started to sweep the floor and noticed she started having wheezing and shortness of breath. Initially she took her albuterol inhaler and this helped her. Patient continued to get worse and she presented to the emergency room at about midnight and respiratory distress. She was tripoding and was treated with continuous bronchodilator, BiPAP, epinephrine, steroids and antibiotics. Her white blood cell count was 21.7 with 4.6% eosinophils= 998 per micro L. her creatinine was 0.9. Her COVID, influenza and RSV RT PCR studies were negative. Her test was negative. Her chest x-ray was negative. Her procalcitonin was negative and her CRP was less than 0.5. Patient had a blood gas on BiPAP rate of 20 pressures 20/6 and 40% with pH of 7.242/49/315. Patient was admitted to the ICU. Patient continued wear the BiPAP in the ICU and a blood gas 8 hours later was 7.28/43/123. 04/23/23: When I saw the patient she was off the BiPAP on 2 L nasal cannula with saturations 96%. I discontinued the 2 L nasal cannula and her saturations over the next 17 minutes remained 94%. The patient tells me she is 85% back to her normal. She denied fever, phlegm production, hemoptysis or cough. The patient has no children. The patient's siblings do not have asthma. The patient has 1
[2023-04-23 16:17] LABS: Glucose Point of Care 181 mg/dl (65-105)
[2023-04-23 18:00] LABS: Amphetamine Screen Urine Negative (Negative); Barbiturate Screen Urine Negative (Negative); Benzodiazepines Screen Urine Negative (Negative); Cannabinoid Screen Urine Negative (Negative); Cocaine Screen Urine Negative (Negative); Methadone Screen Urine Negative (Negative); Opiate Screen Urine Negative (Negative); Phencyclidine Screen Urine Negative (Negative)
[2023-04-23 20:48] LABS: Glucose Point of Care 248 mg/dl (65-105)
[2023-04-24] VITALS (23 sets, daily range): BP systolic 117–153; BP diastolic 63–90; PULSE 88–126; RESP 15–22; TEMP 36–36.9; O2SAT 94–100
[2023-04-24] MEDS: methylPREDNISolone SOD SUCC 125 MG VIAL 60 MG IV PUSH ×2 (00:36→06:15)
--- NOTE | 2023-04-24 00:47 | PC.NURSE ---
patient c/o tightness in her chest, lung sounds unchanged from previous assessment. O2 at 99% on room air. Dr. Olmstead notified, nebs ordered.
[2023-04-24] MEDS: IPRATROPIUM 0.5 MG/ALBUTEROL SULFATE 2.5 MG AMPUL.NEB 3 ML INHALATION ×4 (00:57→19:34)
[2023-04-24] MEDS: AZITHROMYCIN 500 MG/NS 250 ML 500 MG/250 ML BAG 250 MG IVPB (04:22)
--- NOTE | 2023-04-24 08:28 | PC.NURSE ---
This patient, Stefania Caballero, was transferred to [address] ] on 04/24/23 at 0828. Personal belongings sent with patient. Report given to [VELIA Caro @ 0810]. Appropriate documentation sent with patient. Family at bedside and transferred with pt. Transferred delayed because Dr. Robison was in the room assessing the patient.
--- NOTE | 2023-04-24 08:31 | PM.PNPUL ---
Progress Note: A&P Assessment and Plan (1) Asthma with severe asthma attack: Code(s): J45.901 - Unspecified asthma with (acute) exacerbation Status: Acute Assessment and Plan: Patient with a history of asthma for 2 years and multiple ED visits and hospitalization from 03/29/2023 to 03/31/2023. The patient was in her usual state until 131 when she began to clean up her apartment by sweeping and was likely exposed to dust. This has been a trigger for her and she developed wheezing which got progressively worse and was not relieved with albuterol presented to the emergency room in acute respiratory distress with hypoxemia and hypercarbia, leukocytosis, peripheral eosinophilia and with a blood gas of 7.24/49/315 on BiPAP rate of 20 pressures 12/6 and 40%. Patient was treated aggressively with BiPAP, continuous bronchodilators, epinephrine, magnesium, and antibiotics. Currently the patient states she is 85% back to normal, she has no wheezing on exam and is no respiratory distress. Her saturations are 94% on room air. 04/23/23 Plan: I will continue Solu-Medrol 60 mg IV q.6 hours, continue DuoNebs q.4 hours. Agree with continuation of azithromycin pending blood cultures. I will discontinue Advair as she is on high doses of steroids and maximal doses of beta agonist with her DuoNebs a q.4 hours. I will send a urine toxicology study. 04/24/23: Patient says she is breathing close to her normal. She she denies any wheezing. She is currently on room air with saturations 95%. Last night she developed anterior chest wall tenderness that felt like a sore muscle and was worse when she breathed out. The pain was reproducible on palpation this morning. She requested to be put back on the BiPAP which was done and the pain intensity improved. Plan: The patient has no wheezing and is in no respiratory distress. I will discontinue her Solu-Medrol and place her on prednisone 50 mg a day. The patient has a resting tachycardia and is on DuoNebs q.4 hours and I will decrease them to q.6 hours. Continue azithromycin for possible tracheobronchitis, day 2. If patient remains clinically stable possible discharged on 04/25/2023 on these pulmonary medications: Prednisone 50 mg p.o. q.day times 3 days Azithromycin 250 mg p.o. q.day X 2 days Symbicort 160-4.5 at 2 puffs b.i.d. Rescue Symbicort 160-4.5 at 1 puff q.4 hours p.r.n. shortness of breath or wheezing Will follow with you. Subjective Date/time seen: 04/24/23 08:31 Interval history: 04/23/2023: This is a new pulmonary consult for asthma.? 32-year-old woman with a history of hypertension, anxiety and asthma. Patient was diagnosed with asthma in 2021.? She says her asthma came on after she injured her toe and was unable to walk in gained significant amount of weight.? Patient has had multiple emergency department visits for asthma last of which was 02/23/2023 when she ran out of her medicines.? She was discharged on prednisone and Wixela 100-50 1 puff b.i.d..? Patient was admitted to the hospital on March 29, 2023 and discharged on 03/31/2023 for an asthma exacerbation.? She was discharged on prednisone 40 for 3 days, a purple inhaler and albuterol.? She says she was unable to get the prednisone because the pharmacy did not have it.? She says she did not get the purple inhaler until 1 week after discharge.? On about 04/16 she packed her purple inhaler in a box as part of her anticipated move. 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 She did this on 04/18 and 04/19/23.? She woke up on 04/22 in her usual state of health with no respiratory issues.? The patient is in the middle of moving out of her apartment and was moving and then started to sweep the floor and noticed she started having wheezing and shortness of breath.? Initially she took her albuterol inhaler and this helped her.? Patient continued to get worse and she presented to t
[2023-04-24 08:57] LABS: Glucose Point of Care 230 mg/dl (65-105)
[2023-04-24] MEDS: predniSONE 10 MG TABLET 50 MG PO (09:31)
--- NOTE | 2023-04-24 09:38 | PM.IMPN ---
Progress Note: A&P Assessment and Plan (1) Acute respiratory failure: Code(s): J96.00 - Acute respiratory failure, unspecified whether with hypoxia or hypercapnia Status: Acute (2) Asthma with severe asthma attack: Code(s): J45.901 - Unspecified asthma with (acute) exacerbation Status: Acute (3) DM type 2 (diabetes mellitus, type 2): Code(s): E11.9 - Type 2 diabetes mellitus without complications Status: Chronic (4) Essential (primary) hypertension: Code(s): I10 - Essential (primary) hypertension Status: Acute Plan (1) Acute respiratory failure: ?Code(s): J96.00 - Acute respiratory failure, unspecified whether with hypoxia or hypercapnia ?Status:?Acute ?Assessment and Plan: Acute hypoxic and hypercarbic respiratory failure secondary to asthma exacerbation.? Patient has moderate persistent asthma by history Patient was placed on BiPAP and appears to have improved clinically as she is not tachypneic or using accessory muscles and clinically feels better.? She is currently on BiPAP 15/5 30% FiO2. Issue repeated ABG shows no CO2 retention, Continue Solu-Medrol and bronchodilators.? Resume Advair She is afebrile although her WBC is elevated.? 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 Continue azithromycin for possible tracheobronchitis, day 2. (3) DM type 2 (diabetes mellitus, type 2): ?Code(s): E11.9 - Type 2 diabetes mellitus without complications ?Status:?Chronic ?Assessment and Plan: Uncontrolled type 2 diabetes hold metformin add Lantus 20 unit once and q.h.s. Continue sliding scale Subjective Date/time seen: 04/24/23 09:38 Interval history: I saw and examined patient today, patient feels better today, still has cough, with scant phlegm, patient is afebrile, blood pressure stable, patient on room air. Exam Narrative: General: Pt is alert awake on BiPAP and in NAD Lungs/Chest: Trachea central decreased BS B/L as patient is obese but no crackles or wheezing. Patient able to speak sentences not tachypneic or in any respiratory distress but on BiPAP Cardiac: RRR. Normal S1 S2. No murmurs Circulation: Pedal pulses are intact and symmetrical. Abdomen: Normal bowel sounds. Obese soft. NT. ND. Extremities: No clubbing, cyanosis or edema. Warm : Rucker in place Neurologic: Follows commands. Moves all 4 extremities PERRL AO x3 Skin: No Rash Objective Data Vital Signs Vital Signs: Vital Signs - 24 hr 04/23/23 10:00 04/23/23 10:00 04/23/23 12:01 Temperature Pulse Rate 111 H 116 H 116 H Respiratory Rate 18 20 Blood Pressure 116/72 Pulse Oximetry 100 Oxygen Delivery Oxygen Flow Rate Fraction of Inspired Oxygen 04/23/23 12:00 04/23/23 12:00 04/23/23 12:10 Temperature Pulse Rate 117 H 116 H Respiratory Rate 24 H Blood Pressure Pulse Oximetry 100 Oxygen Delivery BiPAP Oxygen Flow Rate Fraction of Inspired Oxygen 25 04/23/23 12:15 04/23/23 12:23 04/23/23 12:00 Temperature 98.2 F Pulse Rate 118 H Respiratory Rate 24 H Blood Pressure 128/86 Pulse Oximetry 97 95 100 Oxygen Delivery Nasal Cannula Nasal Cannula Oxygen Flow Rate 2 2 Fraction of Inspired Oxygen 04/23/23 14:00 04/23/23 14:00 04/23/23 16:00 Temperature 98.5 F Pulse Rate 112 H 114 H 122 H Respiratory Rate 21 H 24 H Blood Pressure 144/87 H Pulse Oximetry 97 97 Oxygen Delivery Oxygen Yunior
[2023-04-24] MEDS: ACETAMINOPHEN 500 MG TABLET 1000 MG PO (09:41)
[2023-04-24 10:35] LABS: Basophils Percent Auto 0.1 % (0.2-1.2); Hematocrit 39.7 % (37.0-47.0); Hemoglobin 11.8 g/dL (12.0-15.0); Immature Granulocyte Absolute 0.16 K/mm3 (0.00-0.031); Immature Granulocyte Percent A 0.7 % (0-0.5); Lymphocytes Absolute Auto 0.92 K/mm3 (0.9-3.2); Lymphocytes Percent Auto 4.3 % (18.3-44.2); Mean Corpuscular HGB Conc 29.7 g/dl (32-36); Mean Corpuscular Hemoglobin 26.9 pg (26-34); Mean Corpuscular Volume 90.4 fl (80-100); Mean Platelet Volume 10.4 fl (7.4-10.4); Monocytes Absolute Auto 0.6 K/mm3 (0.1-0.6); Neutrophils Absolute Auto 19.6 K/mm3 (1.3-6.7); Neutrophils Percent Auto 91.9 % (45.5-73.1); Platelet Count Result 309 k/mm3 (150-375); Red Blood Count 4.39 M/mm3 (4.2-5.4); Red Cell Distribution Width 14.5 % (11.5-14.5); White Blood Count 21.4 K/mm3 (4.5-10.0)
[2023-04-24 10:57] LABS: Anisocytosis 1+ (NORMAL); Hypochromasia 1+ (NORMAL); Platelet Estimate Adequate (Adequate); Schistocytes None Seen (NORMAL)
[2023-04-24 10:58] LABS: Alanine Aminotransferase 30 U/L (6-35); Albumin Level 4.2 g/dL (3.5-5.1); Alkaline Phosphatase 45 U/L (38-126); Anion Gap 7 mmol/L (8-16); Aspartate Amino Transferase 24 U/L (14-36); Bilirubin,Total 0.3 mg/dL (0.2-1.3); Blood Urea Nitrogen 9 mg/dL (7-17); Calcium 9.3 mg/dL (8.4-10.2); Carbon Dioxide 24 mmol/L (22-30); Chloride 107 mmol/L (98-107); Estimated CRCL calculation 101 ml/min; Estimated Glomerular Filt Rate > 60; Glucose 241 mg/dL (65-110); Magnesium 2.2 mg/dL (1.6-2.3); Phosphorus 3.1 mg/dL (2.5-4.5); Potassium 4.3 mmol/L (3.4-5.0); Sodium 138 mmol/L (137-145)
[2023-04-24] MEDS: INSULIN ASPART (*BKC) 100 UNITS/ML SUB-Q ×3 (12:59→21:02)
[2023-04-24 20:19] LABS: Glucose Point of Care 227 mg/dl (65-105)
[2023-04-25] VITALS (13 sets, daily range): BP systolic 139–148; BP diastolic 53–83; PULSE 79–104; RESP 15–20; TEMP 36–37; O2SAT 94–98
[2023-04-25] MEDS: AZITHROMYCIN 500 MG/NS 250 ML 500 MG/250 ML BAG 250 MG IVPB (02:49)
[2023-04-25] MEDS: IPRATROPIUM 0.5 MG/ALBUTEROL SULFATE 2.5 MG AMPUL.NEB 3 ML INHALATION ×2 (03:01→07:39)
[2023-04-25 05:29] LABS: Basophils Percent Auto 0.1 % (0.2-1.2); Hematocrit 37.3 % (37.0-47.0); Hemoglobin 11.3 g/dL (12.0-15.0); Immature Granulocyte Absolute 0.25 K/mm3 (0.00-0.031); Immature Granulocyte Percent A 1.5 % (0-0.5); Lymphocytes Absolute Auto 1.62 K/mm3 (0.9-3.2); Lymphocytes Percent Auto 9.4 % (18.3-44.2); Mean Corpuscular HGB Conc 30.3 g/dl (32-36); Mean Corpuscular Hemoglobin 27.2 pg (26-34); Mean Corpuscular Volume 89.7 fl (80-100); Mean Platelet Volume 10.5 fl (7.4-10.4); Monocytes Absolute Auto 1.3 K/mm3 (0.1-0.6); Monocytes Percent Auto 7.3 % (2.6-8.5); Neutrophils Percent Auto 81.7 % (45.5-73.1); Platelet Count Result 295 k/mm3 (150-375); Red Blood Count 4.16 M/mm3 (4.2-5.4); Red Cell Distribution Width 14.5 % (11.5-14.5); White Blood Count 17.2 K/mm3 (4.5-10.0)
[2023-04-25 05:45] LABS: Anion Gap 8 mmol/L (8-16); Blood Urea Nitrogen 13 mg/dL (7-17); Calcium 8.7 mg/dL (8.4-10.2); Carbon Dioxide 23 mmol/L (22-30); Chloride 106 mmol/L (98-107); Estimated CRCL calculation 101 ml/min; Estimated Glomerular Filt Rate > 60; Glucose 168 mg/dL (65-110); Magnesium 2.3 mg/dL (1.6-2.3); Potassium 3.7 mmol/L (3.4-5.0); Sodium 137 mmol/L (137-145)
[2023-04-25 07:33] LABS: Glucose Point of Care 294 mg/dl (65-105)
[2023-04-25 07:33] LABS: Glucose Point of Care 242 mg/dl (65-105)
[2023-04-25 07:47] LABS: Glucose Point of Care 157 mg/dl (65-105)
[2023-04-25] MEDS: predniSONE 10 MG TABLET 50 MG PO (08:53)
--- NOTE | 2023-04-25 10:18 | PM.IMPN ---
Progress Note: A&P Assessment and Plan (1) Acute respiratory failure: Code(s): J96.00 - Acute respiratory failure, unspecified whether with hypoxia or hypercapnia Status: Acute (2) Asthma with severe asthma attack: Code(s): J45.901 - Unspecified asthma with (acute) exacerbation Status: Acute (3) DM type 2 (diabetes mellitus, type 2): Code(s): E11.9 - Type 2 diabetes mellitus without complications Status: Chronic (4) Essential (primary) hypertension: Code(s): I10 - Essential (primary) hypertension Status: Acute Plan (1) Acute respiratory failure: ?Code(s): J96.00 - Acute respiratory failure, unspecified whether with hypoxia or hypercapnia ?Status:?Acute ?Assessment and Plan: Acute hypoxic and hypercarbic respiratory failure secondary to asthma exacerbation.? Patient has moderate persistent asthma by history Patient was placed on BiPAP and appears to have improved clinically as she is not tachypneic or using accessory muscles and clinically feels better.? She is currently on BiPAP 15/5 30% FiO2. Issue repeated ABG shows no CO2 retention, Continue Solu-Medrol and bronchodilators.? Resume Advair She is afebrile although her WBC is elevated.? 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 Continue azithromycin for possible tracheobronchitis, day 2. 2/3: Patient has no shortness of breath, asthma exacerbation has resolved Pulmonary recommends: Prednisone 50 mg p.o. q.day times 3 days Azithromycin 250 mg p.o. q.day X 2 days Symbicort 160-4.5 at 2 puffs b.i.d. Rescue Symbicort 160-4.5 at 1 puff q.4 hours p.r.n. shortness of breath or wheezing (3) DM type 2 (diabetes mellitus, type 2): ?Code(s): E11.9 - Type 2 diabetes mellitus without complications ?Status:?Chronic ?Assessment and Plan: Uncontrolled type 2 diabetes hold metformin add Lantus 20 unit once and q.h.s. Continue sliding scale Subjective Date/time seen: 04/25/23 10:18 Interval history: I saw and examined patient today, patient feels better today, denies wheezing, shortness of breath has mild cough still has cough,, patient is afebrile, blood pressure stable, patient on room air. Exam Narrative: GENERAL: Pleasant, in no acute distress. Well-nourished. Obesity - EYES: EOMI. Anicteric. - HENT: Moist mucous membranes. - LUNGS: Clear to auscultation bilaterally, no wheezing, rhonchi, or rales. - CARDIOVASCULAR: Regular rate and rhythm. No murmur. No JVD. - ABDOMEN: Soft, non-tender and non-distended. No palpable masses. - EXTREMITIES: No edema. Peripheral pulses 2+. Non-tender. - NEUROLOGIC: No focal neurological deficits. CN II-XII grossly intact. - PSYCHIATRIC: Awake, Alert and oriented x 3. Appropriate mood and affect. - SKIN: No rashes or lesions. Warm. - LYMPH: No cervical lymphadenopathy. Objective Data Vital Signs Vital Signs: Vital Signs - 24 hr 04/24/23 11:59 04/24/23 12:00 04/24/23 15:22 Temperature 97.1 F L Pulse Rate 103 H 103 H 110 H Respiratory Rate 22 H 22 H 20 Blood Pressure 129/74 Pulse Oximetry 98 98 Oxygen Delivery Room Air Fraction of Inspired Oxygen 04/24/23 15:34 04/24/23 16:00 04/24/23 16:00 Temperature 97.9 F Pulse Rate 104 H 113 H Respiratory Rate 20 20 Blood Pressure 153/90 H Pulse Oximetry 94 Oxygen Delivery Room Air Fraction of Inspired Oxygen 04/24/23 19:35 04/24/23 19:39 04/24/23 19:43 Temperatu
--- NOTE | 2023-04-25 10:34 | PM.DS ---
DS: Admitting Diagnosis Discharge Date 04/25/23 Admitting Diagnosis (1) Acute respiratory failure: ?Code(s): J96.00 - Acute respiratory failure, unspecified whether with hypoxia or hypercapnia ?Status:?Acute (2) Asthma with severe asthma attack: ?Code(s): J45.901 - Unspecified asthma with (acute) exacerbation ?Status:?Acute (3) DM type 2 (diabetes mellitus, type 2): ?Code(s): E11.9 - Type 2 diabetes mellitus without complications ?Status:?Chronic (4) Essential (primary) hypertension: ?Code(s): I10 - Essential (primary) hypertension ?Status:?Acute DS: Discharge Diagnosis Discharge Diagnosis (1) Acute respiratory failure: Code(s): J96.00 - Acute respiratory failure, unspecified whether with hypoxia or hypercapnia Status: Acute (2) Asthma with severe asthma attack: Code(s): J45.901 - Unspecified asthma with (acute) exacerbation Status: Acute (3) DM type 2 (diabetes mellitus, type 2): Code(s): E11.9 - Type 2 diabetes mellitus without complications Status: Chronic (4) Essential (primary) hypertension: Code(s): I10 - Essential (primary) hypertension Status: Acute DS: Summary Hospital Course Hospital Course: Per H&P, this is a 32-year-old female with past medical history significant for asthma, diabetes mellitus patient presents to the emergency room with severe respiratory distress, most of the history has been obtained from who is at bedside patient has had cough and shortness of breath for the last 2 days or so.? In emergency room patient was in severe respiratory distress required BiPAP.? Patient has been admitted to ICU The following med issues have been addressed during hospitalization (1) Acute respiratory failure: ?Code(s): J96.00 - Acute respiratory failure, unspecified whether with hypoxia or hypercapnia ?Status:?Acute ?Assessment and Plan: Acute hypoxic and hypercarbic respiratory failure secondary to asthma exacerbation.? Patient has moderate persistent asthma by history Patient was placed on BiPAP and appears to have improved clinically as she is not tachypneic or using accessory muscles and clinically feels better.? She is currently on BiPAP 15/5 30% FiO2. Issue repeated ABG shows no CO2 retention, Continue Solu-Medrol and bronchodilators.? Resume Advair She is afebrile although her WBC is elevated.? 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 Continue azithromycin for possible tracheobronchitis, day 2. 2/3: Patient has no shortness of breath, asthma exacerbation has resolved Pulmonary recommends: Prednisone 50 mg p.o. q.day times 3 days Azithromycin 250 mg p.o. q.day X 2 days Symbicort 160-4.5 at 2 puffs b.i.d. Rescue Symbicort 160-4.5 at 1 puff q.4 hours p.r.n. shortness of breath or wheezing (3) DM type 2 (diabetes mellitus, type 2): ?Code(s): E11.9 - Type 2 diabetes mellitus without complications ?Status:?Chronic ?Assessment and Plan: Uncontrolled type 2 diabetes hold metformin add Lantus 20 unit once and q.h.s. Continue sliding scale 2/3: Continue metformin on discharge, continue sliding scale when patient is on prednisone p.o. after discharge Time Spent with Patient Time attestation: Total time spent providing and/or coordinating discharge services: Exam Narrative: GENERAL: Pleasant, in no acute distress. Well-nourished. Obesity
[2023-04-25 11:42] LABS: Glucose Point of Care 283 mg/dl (65-105)
--- NOTE | 2023-04-25 12:12 | PM.PNPUL ---
Progress Note: A&P Assessment and Plan (1) Asthma with severe asthma attack: Code(s): J45.901 - Unspecified asthma with (acute) exacerbation Status: Acute Assessment and Plan: Patient with a history of asthma for 2 years and multiple ED visits and hospitalization from 03/29/2023 to 03/31/2023. The patient was in her usual state until 131 when she began to clean up her apartment by sweeping and was likely exposed to dust. This has been a trigger for her and she developed wheezing which got progressively worse and was not relieved with albuterol presented to the emergency room in acute respiratory distress with hypoxemia and hypercarbia, leukocytosis, peripheral eosinophilia and with a blood gas of 7.24/49/315 on BiPAP rate of 20 pressures 12/6 and 40%. Patient was treated aggressively with BiPAP, continuous bronchodilators, epinephrine, magnesium, and antibiotics. Currently the patient states she is 85% back to normal, she has no wheezing on exam and is no respiratory distress. Her saturations are 94% on room air. 04/23/23 Plan: I will continue Solu-Medrol 60 mg IV q.6 hours, continue DuoNebs q.4 hours. Agree with continuation of azithromycin pending blood cultures. I will discontinue Advair as she is on high doses of steroids and maximal doses of beta agonist with her DuoNebs a q.4 hours. I will send a urine toxicology study. 04/24/23: Patient says she is breathing close to her normal. She she denies any wheezing. She is currently on room air with saturations 95%. Last night she developed anterior chest wall tenderness that felt like a sore muscle and was worse when she breathed out. The pain was reproducible on palpation this morning. She requested to be put back on the BiPAP which was done and the pain intensity improved. Plan: The patient has no wheezing and is in no respiratory distress. I will discontinue her Solu-Medrol and place her on prednisone 50 mg a day. The patient has a resting tachycardia and is on DuoNebs q.4 hours and I will decrease them to q.6 hours. Continue azithromycin for possible tracheobronchitis, day 2. 04/25/23: Patient states she is breathing at her normal. She still has a cough with mucus production. Minimal end-expiratory wheezes. Afebrile, WBC 17.2, Cr 0.9. Plan: Change to prednisone 50 mg PO Q day. Change duonebs to advair 230-21 and 2 puffs BID. Azithromycin day 3. If patient remains clinically stable possible discharged on 04/26/2023 on these pulmonary medications: Prednisone 50 mg p.o. q.day times 3 days Azithromycin 250 mg p.o. q.day X 2 days Advair 230-21 and 2 puffs BID Rescue albuterol 2 puffs Q 4 H PRN SOB or wheezing. Follow up in pulmonary clinic 3-4 weeks. Will follow with you. Subjective Date/time seen: 04/25/23 12:12 Interval history: 04/23/2023: This is a new pulmonary consult for asthma.? 32-year-old woman with a history of hypertension, anxiety and asthma. Patient was diagnosed with asthma in 2021.? She says her asthma came on after she injured her toe and was unable to walk in gained significant amount of weight.? Patient has had multiple emergency department visits for asthma last of which was 02/23/2023 when she ran out of her medicines.? She was discharged on prednisone and Wixela 100-50 1 puff b.i.d..? Patient was admitted to the hospital on March 29, 2023 and discharged on 03/31/2023 for an asthma exacerbation.? She was discharged on prednisone 40 for 3 days, a purple inhaler and albuterol.? She says she was unable to get the prednisone because the pharmacy did not have it.? She says she did not get the purple inhaler until 1 week after discharge.? On about 04/16 she packed her purple inhaler in a box as part of her anticipated move. 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 She did this on 04/18 and 04/19/23.? She woke up on 04/22 in her usual state of health with no respiratory issues.? The
[2023-04-25] MEDS: INSULIN ASPART (*BKC) 100 UNITS/ML SUB-Q (12:56)
[2023-04-25] MEDS: FLUTICASONE/SALMETEROL 230-21 MCG INHALER 1 PUFF 2 PUFF INHALATION (13:23)
--- NOTE | 2023-04-25 14:32 | PC.NURSE ---
1:1 Discharge given to the pt on Insulin administration. Detail given on SS with meals The pt was given education on waiting to self admin insulin at 1700 meal time et the pt decline. The pt was able to draw up insulin in syringe based off of number RN gave at the bedside et sliding scale. The pt was given education on Insulin admin site, cleaning area et admin times et to take insulin with the first bite of food. The pt demonstrates understanding through demonstration. 1:1 time spent with pt greater than 30 minutes. The pt is A&Ox4. All belongings packed et the pt is awaiting escort to private vehicle in a wheelchair with no distress noted at the time of exit from the room.
== END 2023-04-25 14:55 | disposition home or self-care (01) | DRG 141 ==
LOC: ANHED 04-23 01:14 → ANHICU 04-23 04:19 → ANHIMU 04-24 08:31
PROVIDERS: Internal Medicine; Internal Medicine Pulmonary Disease; Admitting Provider Internal Medicine; Emergency Provider Emergency Medicine; PCP Family Medicine; Visit Provider Hospitalist
DX: J45.41 Moderate persistent asthma with (acute) exacerbation (principal); Z91.148 Patient's other noncompliance with medication regimen for other reason; J96.01 Acute respiratory failure with hypoxia; J96.02 Acute respiratory failure with hypercapnia; E11.9 Type 2 diabetes mellitus without complications; I10 Essential (primary) hypertension; D72.829 Elevated white blood cell count, unspecified; E66.01 Morbid (severe) obesity due to excess calories; Z20.822 Contact with and (suspected) exposure to COVID-19; Z68.37 Body mass index [BMI] 37.0-37.9, adult
CPT/HCPCS: 36415; 36600; 71045; 80048; 80053; 80307; 81025; 82805; 82948; 83735; 84100; 84145; 85025; 86140; 87040; 87637; 87641; 93005; 94003; 94640; 96365; 96372; 96374; 96375; 99285; A9270; J0171; J0456; J0696; J1100; J1815; J2405; J2930; J3475; J7030; J7512

== ENCOUNTER 2024-01-13 08:18 | Outpatient (CLI) | payer MEDICAID, SELFPAY ==
--- NOTE | 2024-01-13 11:13 | WPDPFTINT ---
PFT Procedure Performed PFT Procedure Performed Spirometry with Pre/Post Bronchodilator Plethysmography (Lung Vol) Diffusing Cap (DLCO) Flow Vol Loop PFT Interpretation This is a pulmonary function test with pre and post-bronchodilator spirometry, plethysmography and diffusing capacity. The test was performed and results interpreted in accordance with the 2019 and 2005 ATS/ERS Task Force guidelines respectively using the Global Lung Function Initiative-2012 reference equations. Patient demonstrated good effort and cooperation. Reproducibility criteria were met. The quality of the pre bronchodilator spirometry maneuver was Grade A and post bronchodilator spirometry maneuver was Grade A. Findings: Spirometry: There is decreased maximal expiratory airflow at all lung volumes with concave expiratory flow tracing. The contour the inspiratory flow tracing is normal. The pre bronchodilator FVC is 2.51 L, 60% predicted. The pre bronchodilator FEV1 is 1.20 L, 34% predicted. The pre bronchodilator FEV1: FVC ratio is 48%. The post bronchodilator FVC is 3.04 L, representing a 21% increase. The post bronchodilator FEV1 is 1.75 L, representing a 46% increase. The post bronchodilator FEV1: FVC ratio is 57%. Plethysmography: The total lung capacity is 4.48 L, 82% predicted. The functional residual capacity is 2.86 L, 94% predicted. The residual volume is 1.97 L, 126% predicted. The residual volume: Total lung capacity ratio is 44%. Diffusing capacity: The diffusing capacity unadjusted for hemoglobin and carboxyhemoglobin is 24.8, 96% predicted. The diffusing capacity adjusted for alveolar volume is 6.51, 137% predicted. Impression: There is a very severe obstructive abnormality. There is significant improvement after inhaling a single dose of albuterol. The increase in residual volume to total lung volume ratio is consistent with hyperinflation from an obstructive abnormality. The diffusing capacity unadjusted for hemoglobin and carboxyhemoglobin is normal and increased when adjusted for alveolar volume. There are no prior studies for comparison
== END 2024-01-13 08:19 | disposition home or self-care (01) ==
LOC: ANHPFT 08:20
PROVIDERS: PCP Family Medicine; Visit Provider Internal Medicine Pulmonary Disease
DX: J45.909 Unspecified asthma, uncomplicated (principal); R94.2 Abnormal results of pulmonary function studies
CPT/HCPCS: 94060; 94726; 94729

== ENCOUNTER 2024-08-29 23:00 | Emergency (ER) | payer MEDICAID, SELFPAY ==
--- NOTE | ~2024-08-29 | US_ITS ---
Pelvic ultrasound. Clinical History: Right upper quadrant pain Technique: Realtime transabdominal and transvaginal scanning of the pelvis was performed. Color flow Doppler and Doppler spectral analysis were performed. Findings: The uterus is anteverted. The endometrial stripe has a thickness of 5 mm. No focal mass is identified. The right ovary measures 2.1 x 2.0 x 2.2 cm. No significant right ovarian or adnexal mass is seen. The left ovary measures 2.2 x 1.4 x 1.3 cm. No significant left ovarian or adnexal mass is seen. Vascular flow present in both ovaries on Doppler spectral analysis. There is no evidence of free fluid in the cul de sac. Impression: Unremarkable pelvic ultrasound. Reviewed, dictated and finalized at [facility]. Impression: Unremarkable pelvic ultrasound.
--- OUTSIDE RECORDS SUMMARY | 2024-08-29 23:03 | XMS_ITS | Data Portability ---
Author Organization [facility] [employer] [employer] Address [address] [place] [address] Care Team Providers Care Director Business Management Name Role Phone SANGEETA KIM Primary Care Provider Assessment Encounter Date Assessment Date Assessment LastModified by Organization Details LastModified Time 05/03/2020 05/03/2020 Annual gynecological exam performed. Patient will come back in a year unless there are new symptoms. tee Not available 05/03/2020 13:21:19 01/06/2022 01/06/2022 The patient and I disscussed the various causes of abnormal uterine bleeding, including polyps, fibroids, hyperplasia, atypia, anovulation, etc. We reviewed the typical evaluation with labs, pelvic US and possible endometrial biopsy. Briefly discussed the options available for treatment (depending on the results of evaluation) such as hormonal treatment (OCPs, progestins), Mirena, endometrial ablation, and surgery. We spent more than 30 minutes face to face. bryant Not available 01/06/2022 11:58:56 Plan of Treatment Reminders Order Date Submit Date Provider Last Modified By Organization Details Last Modified Time Details Appointments None recorded . Lab unlisted lab - 17-oh progeste aranza, lc/MS/MS 2021 [facility] (Lab), [address] [place], [address], 18:08:25 dhea-sul fate, serum 2021 [facility] (Lab), [address] [place], [address], 18:08:21 hormone panel, serum or plasma 2021 [facility] (Lab), [address], [place], [address], 18:08:22 HbA1c (hemoglo bin A1c), blood 2021 [facility] (Lab), [address], [place], [address], 18:08:23 progeste aranza, serum 2021 [facility] (Lab), [address] [facility], [place], [address], 18:08:21 prolacti n, serum 2021 [facility] (Lab), [address] [place], [address], 18:08:22 shbg (sex hormone- binding globulin ), serum 2021 [facility] (Lab), [address] [place], [address], 18:08:24 testoste aranza free/goldie tosteron e total, ratio, serum 2021 [facility] (Lab), [address] [facility], [place], [address], 18:08:24 TSH, serum or plasma 2021 [facility] (Lab), [address] [place], [address], 18:08:23 CBC w/ auto diff 2021 [facility] (Lab), [address] [place], [address], 18:08:20 beta-HCG , quantita tive, serum or plasma 2021 [facility] (Lab), [address], [place], [address], 18:08:21 pregnanc y test, urine 2021 [facility] [place], [address], [address], [place], [address], 12:00:43 Referral None recorded . Procedures None recorded . Surgeries None recorded . Imaging US, pelvis, complete 2021 [facility] [place], [address], [address], [place], [address], 14:41:49 Medication Orders Provera 10 mg tablet 2020 INTERFACE [id number], [address], [place], [id number], 14:04:26 Patient TargetsNo targets recorded. Patient Instructions Encounter Date Encounter Id Patient Instructions Last Modified By Organization Details Last Modified Time 05/03/2020 [id number] [email or web address] Not available 14:04:30 Reason for Referral None Reported. Results Created Date Observation Date Name Description Value Unit Range Abnormal Flag Note LastModifiedBy Organization Detail LastModifiedTime 01/07/2001/06/2022 IMAGE GUIDE D PAP AND HPV REGAR DLESS image guided Pap, HPV regardless of Pap result SEE RESULT S BELOW abnormal CASE REPOR T: Cytol ogy Gynec ologi santhosh Repor t Case: [id number] Autho hunter g Provi bindu: Alexandria Gonzalez, ELZBIETA Colle cted: 01/06 1238 Order ing Locat ion: [place] [facility] Recei melvina: 01/07 0721 First Scree n: Aleisha Irizarry, CT Rescr een: Mignon castro, Jenna downing, CT Speci men: Jude murdock Pap - Image d, Cervi x STATE MENT OF ADEQU ACY: Satis facto ry for evalu ation Trans forma tion zone compo nent absen t The absen ce of an endoc ervic al compo nent was confi rmed by an addit ional jude ner. FINAL DIAGN OSIS: Negat antonio for Intra epith elial Lesio sherita or Kylie hester (NIL) . Elect oliviadavid khan gautam d by Mignon castro, Jenna downing, CT on 01/10 at 4:47 PM ----- ----- ----- ----- ----- ----- ----- ----- ----- ----- ----- ----- ----- ----- ----- ----- ----- ---- HPV RESUL TS: HPV mRNA E6/E7 : Posit antonio - HPV mRNA Detec george HPV GENOT YPE 16 (CHASITY) : Not Detec george HPV GENOT YPE 18/45 (CHASITY) : Not Detec george NOTE: This high risk HPV mRNA assay detec ts fourt een high- risk HPV types (16, 18, 31, 33, 35, 39, 45, 51, 52, 56, 58, 59, 66, 68) witho ut diffe renti ation . This assay can diffe renti ate HPV 16 from HPV 18/45 , but does not diffe renti ate betwe en HPV 18 and HPV 45. A negat antonio HPV 16, 18/45 genot ype assay resul t does not exclu de the possi bilit y of cytol ogic abnor malit ies or of futur e or under lying SHAVONNE 1, SHAVONNE 3 or cance r. COMME NT: Note: This speci men was revie wed by a Cytot echno logis t and/o r Patho logis t (as indic ated in this repor t) after evalu ation using the Thinp rep Imagi ng Syste m. CLINI SANTHOSH INFOR MATIO N: Menst rual Statu s: LMP (if appli cable ): Clini santhosh Histo ry/Pr eviou s Pap: Type of Neopl jace (if appli cable ): Signi fican t Clini santhosh Findi ngs: Other Histo ry: Hormo irma (if appli cable ): PAP EDUCA KEIRA L NOTE: The Pap Test is a scree mathieu test with an inher ent false negat antonio rate. Liqui d-bas ed sampl ing may decre ase, but will not elimi keaton, false negat antonio resul ts. A negat antonio resul t does not precl ude the prese nce and/o r devel opmen t of disea se, since the prese nce of abnor mal cells in the sampl e depen ds on the locat ion of the lesio n and sampl ing techn ique. Ivonne nued regul ar scree mathieu is the best metho d of cance r preve ntion . If repor george cytol ogic findi ng do not corre late with physi santhosh and/o r histo rical findi ngs, furth er inves tigat ion is recom hesham d, as clini marin vivas nted. Not Available [facility] [address] [place], [address], 01/10/2022 17:49:49 01/07/20 22 01/06/2022 CT/GC (CHASITY) , THINP REP VIAL chlamydia trachomatis, PCR Negati ve negati ve Not Available [facility] [address] [place], [address], 01/10/2022 17:49:50 01/07/20 22 01/06/2022 CT/GC (CHASITY) , THINP REP VIAL neisseria gonorrhoeae, PCR Negati ve negati ve Not Available [facility] [id number] [place] [address], [address], 01/10/2022 17:49:50 01/07/20 22 01/06/2022 TRICH OMONA S VAGIN MICH (RRNA ) trichomonas vaginalis ribosomal RNA (rrna) Negati ve negati ve Not Available [facility] Infectious Disease [facility] [place], [address], 01/10/2022 17:49:50 01/07/2001/06/2022 CBC W/DIF F WBC 10.2 10'3/ uL 3.6-10 .2 Not Available [facility] Infectious [facility] [place], [address], 01/11/2022 18:08:20 01/07/2001/06/2022 CBC W/DIF F RBC 4.77 10'6/ uL (based on docume nted legal sex) 4.10-5 .30 Not Available [facility] Infectious [facility] [place], [address], 01/11/2022 18:08:20 01/07/2001/06/2022 CBC W/DIF F HGB 12.5 g/dL (based on docume nted legal sex) 11.9-1 5.8 Not Available [facility] Infectious [facility] [place], [address], 01/11/2022 18:08:20 01/07/2001/06/2022 CBC W/DIF F HCT 41.3 % (based on docume nted legal sex) 37.4-4 8.3 Not Available [facility] [place], [address], 01/11/2022 18:08:20 01/07/2001/06/2022 CBC W/DIF F MCV 86.6 fL 82.0-9 9.0 Not Available [facility] Infectious [facility] [place], [address], 01/11/2022 18:08:20 10/17/20 22 01/06/2022 CBC W/DIF F MCH 26.2 pg 27.0-3 3.0 low Not Available [facility] [place], [address], 01/11/2022 18:08:20 01/07/20 22 01/06/2022 CBC W/DIF F MCHC 30.3 g/dL 32.0-3 6.0 low Not Available [facility] [place], [address], 01/11/2022 18:08:20 01/07/2001/06/2022 CBC W/DIF F RDW 14.3 % 11.0-1 5.0 Not Available [facility] [address] [place] [address], [place], [address], 01/11/2022 18:08:20 01/07/20 22 01/06/2022 CBC W/DIF F plt 289 10'3/ uL 150-45 0 Not Available [facility] [place], [address], 01/11/2022 18:08:20 01/07/20 22 01/06/2022 CBC W/DIF F MPV 11.4 fL 9.8-12 .7 Not Available [facility] [place], [address], 01/11/2022 18:08:20 01/07/2001/06/2022 CBC W/DIF F NRBC's 0.0 % 0 Not Available [facility] [place], [address], 01/11/2022 18:08:20 01/07/20 22 01/06/2022 CBC W/DIF F absolute NRBCs 0.0 10'3/ uL 0 Not Available [facility] [place], [address], 01/11/2022 18:08:20 01/07/20 22 01/06/2022 CBC W/DIF F neutrophils 59.0 % 37.0-7 2.0 Not Available [facility] [address] [place], [place] [address], [address], 01/11/2022 18:08:20 01/07/20 22 01/06/2022 CBC W/DIF F lymphocytes 28.0 % 16.0-4 8.0 Not Available [facility] [address] [place] [address], [address], 01/11/2022 18:08:20 01/07/20 22 01/06/2022 CBC W/DIF F monocytes 6.5 % 4.0-14 .0 Not Available [facility] [address] [place] [address], [address], 01/11/2022 18:08:20 01/07/2001/06/2022 CBC W/DIF F eosinophils 5.0 % 0.0-9. 0 Not Available [facility] [address] [place] [address], [address], 01/11/2022 18:08:20 01/07/20 22 01/06/2022 CBC W/DIF F basophils 0.9 % 0.0-2. 0 Not Available [facility] [address] [place] [address], [address], 01/11/2022 18:08:20 01/07/20 22 01/06/2022 CBC W/DIF F immature granulocytes 0.6 % no define d refere nce range Not Available [facility] [address] [place] [address], [address], 01/11/2022 18:08:20 01/07/20 22 01/06/2022 CBC W/DIF F absolute neutrophils 6.0 10'3/ uL 1.1-6. 0 Not Available [facility] Infect[facility] Disease [address] [place] [address], [address], 01/11/2022 18:08:20 01/07/20 22 01/06/2022 CBC W/DIF F absolute lymphocytes 2.9 10'3/ uL 0.7-3. 4 Not Available [facility] Infectious Disease [address] [place] [address], [address], 01/11/2022 18:08:20 01/07/20 22 01/06/2022 CBC W/DIF F absolute monocytes 0.7 10'3/ uL 0.3-1. 0 Not Available [facility] Disease [address] [place] [address], [address], 01/11/2022 18:08:20 01/07/20 22 01/06/2022 CBC W/DIF F absolute eosinophils 0.5 10'3/ uL 0.0-0. 6 Not Available [facility] Disease [address] [place] [address], [address], 01/11/2022 18:08:20 01/07/20 22 01/06/2022 CBC W/DIF F absolute basophils 0.1 10'3/ uL 0.0-0. 1 Not Available [facility] Disease [address] [place] [address], [address], 01/11/2022 18:08:20 01/07/20 22 01/06/2022 CBC W/DIF F absolute immature granulocytes 0.1 10'3/ uL 0.00-0 .10 01/07 1:43 AM: P indic ates parti al resul ts on a panel have been relea sed. Addit ional resul ts will follo w. 01/07 1:43 AM: This resul t has been final verif ied. No addit ional or chicas ed resul ts are expec george. Not Available [facility] [address] [place], [address], 01/11/2022 18:08:20 01/07/20 22 01/06/2022 DHEA SULFA TE DHEA-sulfate 110 ug/dL Femal e Range s Age(y ) Range (ug/d L) 10-15 34-28 0 15-20 65-36 8 20-25 148-4 07 25-35 99-34 0 35-45 61-33 7 45-55 35-25 6 55-65 19-20 5 65-75 9-246 > 75 12-15 4 Not Available [facility] Infectious Disease [address] [place], [address], 01/11/2022 18:08:21 01/07/20 22 01/06/2022 BHCG, QUANT ITATI VE B-HCG <0.2 mIU/m L This assay was perfo rmed using [employer] ratio n reage nts and test kits. Value s obtai iqra with other assay metho ds or kits canno t be used inter [facility]an francisco en[facility] . Refer ence Range s: Non-p regna nt, preme nopau ricardo women : 0.0-5 .3 mIU/m L Postm enopa usal women : 0.0-7 .0 mIU/m L Obdulia l Pregn gallito: Gesta keira l Age bHCG Conc. - mIU/m L 3 Weeks 5.8 - 71.7 4 Weeks 9.5 - 750 5 Weeks 217-7 138 6 Weeks 158 - 31,79 5 7 Weeks 3,697 - 162,5 63 8 Weeks 32,06 5 - 149,5 71 9 Weeks 63,80 3 - 151,4 10 10 Weeks 46,50 9 - 186,9 77 12 Weeks 27,83 2 - 210,6 12 14 Weeks 13,95 0 - 62,53 0 15 Weeks 12,03 9 - 70,97 1 16 Weeks 9,040 - 56,45 1 17 Weeks 8,175 - 55,86 8 18 Weeks 8,099 - 58,17 6 Not Available [facility] Infectious Disease [address] [place] [address], [address], 01/11/2022 18:08:21 01/07/20 22 01/06/2022 PROGE STERO NE progesterone <0.05 NG/mL This assay was perfo rmed using [employer] reage nts and test kits. Value s obtai iqra with other assay metho ds or kits canno t be used inter chicas eably . Femal e Proge stero ne Range s: Folli cular phase 0.06- 0.89 ng/mL Ovula tion phase 0.12- 12.00 ng/mL Lutea l phase 1.83- 23.90 ng/mL Postm enopa usal< 0.05- 0.13 ng/mL Healt hy Pregn ant Women 1st Trime ster1 1.0-4 4.30 2nd Trime ster2 5.40- 83.30 3rd Trime ster5 8.70- 214.0 0 Not Available [facility] Infectious Disease [address] [place] [address], [address], 01/11/2022 18:08:21 01/07/20 22 01/06/2022 PROLA CTIN prolactin, total 10.90 NG/mL 4.79-2 3.30 This assay was perfo rmed using [employer] reage nts and test kits. Value s obtai iqra with other assay metho ds or kits canno t be used inter [facility] . Not Available [facility] Infectious Disease [address] [place] [address], [address], 01/11/2022 18:08:22 01/07/20 22 01/06/2022 FSH, LH, ESTRA DIOL estradiol 37.3 pg/mL This assay was perfo rmed using [employer] reage nts and test kits. Value s obtai iqra with other assay metho ds or kits canno t be used [facility] . Femal e Estra diol Range s: Folli cular phase 12.4- 233 pg/mL Ovula tion phase 41.0- 398 pg/mL Lutea l phase 22.3- 341 pg/mL Postm enopa usal< 5-138 pg/mL Healt hy Pregn ant Women 1st Trime ster1 54-32 43 pg/mL 2nd Trime ster1 561-2 1280 pg/mL 3rd Trime ster8 525-> 11660 pg/mL Not Available [facility] Infectious Disease [address] [place] [address], [address], 01/11/2022 18:08:22 01/07/20 22 01/06/2022 FSH, LH, ESTRA DIOL FSH 4.6 mIU/m L This assay was perfo rmed using [employer] reage nts and test kits. Value s obtai iqra with other assay metho ds or kits canno t be used [facility] . Femal es Folli cular : 3.5-1 2.5 mIU/m L Ovula tion: 4.7-2 1.5 mIU/m L Lutea l: 1.7-7 .7 mIU/m L Postm enopa use: 25.8- 134.8 mIU/m L Not Available [facility] Infectious Disease [address] [place] [address], [address], 01/11/2022 18:08:22 01/07/20 22 01/06/2022 FSH, LH, ESTRA DIOL LH 6.9 mIU/m L This assay was perfo rmed using [employer] reage nts and test kits. Value s obtai iqra with other assay metho ds or kits canno t be used [facility] . Femal es Mid-F ollic ular: 2.4-1 2.6 mIU/m L Mid-C ycle: 14.0- 95.6 mIU/m L Mid-L uteal : 1.0-1 1.4 mIU/m L Postm enopa use: 7.7-5 8.5 mIU/m L Not Available [facility] [address] [place], [address], 01/11/2022 18:08:22 01/07/20 22 01/06/2022 TSH, REFLE X FREE T4 TSH 2.28 uIU/m L 0.30-5 .33 Not Available [facility] [address] [place], [address], 01/11/2022 18:08:23 01/07/20 22 01/06/2022 HEMOG LOBIN A1C hemoglobin A1C 6.7 % 0-5.6 high The Ameri can Diabe goldie Assoc iatio n recom mends that a prima ry goal of thera py rolaul d be a HBA1C of < 7% and that physi cians shoul d reeva luate the treat ment regim en in patie nts with HBA1C value s consi stent ly > 8%. <5.7% Obdulia l 5.7 - 6.4% Incre ased risk for diabe goldie >=6.5 % Diagn ostic of diabe goldie <7.0% Goal of thera py >8.0% Actio n sugge sted Not Available [facility] [address] [place], [address], 01/11/2022 18:08:23 01/07/20 22 01/06/2022 HUMAN SEX HORMO NE JAGJIT NG GLOBU MARIUSZ sex hormone binding globulin 8.4 nmole s/L 18.2-1 35.5 low Not Available [facility] [address] [place], [address], 01/11/2022 18:08:24 01/07/20 22 01/06/2022 TESTO STERO NE, FREE( DIALY SIS) AND TOTAL (LC/M S/MS) testosterone , total 28 NG/dL 2-45 For addit ional infor leona ho e refer to http: //ab kiddque stdia gnost ics.c om/fa q/Tot Keisha Vasquez [facility] (This link is being provi ded for infor [facility]/ educa keira l purpo ses only. ) This test was devel oped and its mook tical perfo rmanc e clover cteri stics have been deter mined by [employer]. It has not been clear ed or appro melvina by the FDA. This assay has been valid ated pursu ant to the CLIA regul ation s and is used for clini santhosh purpo ses. Not Available [facility] [address] [place], [address], 01/11/2022 18:08:24 01/07/20 22 01/06/2022 TESTO STERO NE, FREE( DIALY SIS) AND TOTAL (LC/M S/MS) testosterone , free 8.6 pg/mL 0.1-6. 4 high This test was devel oped and its mook tical perfo rmanc e clover cteri stics have been deter mined by [employer]. It has not been clear ed or appro melvina by the FDA. This assay has been valid ated pursu ant to the CLIA regul ation s and is used for clini santhosh purpo ses. Perfo rming Organ izati on [facility] samantha n: Site ID: [id number] Name: [employer] [facility] Addre ss: [id number] [facility] [place] [address] Direc tor: Kat ornelas M.D. Not Available [facility] [address] [place], [address], 01/11/2022 18:08:24 01/07/20 22 01/06/2022 17-OH PROGE STERO NE 17-hydroxypr ogesterone, lc/MS/MS 50 NG/dL Adult Femal e Refer ence Range s for 17-Hy droxy proge stero ne: Pre-M enopa usal Mid Folli cular : 23-10 2 ng/dL Pre-M enopa usal Surge : 67-34 9 ng/dL Pre-M enopa usal Mid Lutea l: 139-4 31 ng/dL Postm enopa usal Phase : < or = 45 ng/dL Pregn gallito: First Trime ster: 78-45 7 ng/dL Secon d Trime ster: 90-35 7 ng/dL Third Trime ster: 144-5 78 ng/dL This test was devel oped and its mook tical perfo rmanc e clover cteri stics have been deter mined by [facility] . It has not been clear ed or appro melvina by FDA. This assay has been valid ated pursu ant to the CLIA regul ation s and is used for clini santhosh purpo ses. Perfo rming Organ izati on Infor matio n: Site ID: [id number] Name: [facility] , Addre ss: [id number] [place] [address] Dire tor: Belinda govea MD,Ph D,VENITA Not Available [facility] [address] [place], [address], 01/11/2022 18:08:25 01/07/20 22 01/06/2022 pregn gallito test, urine HCG negati ve Not Available [place] [address], [place], [address], 01/06/2022 10:37:34 Result Notes None recorded. Medical Equipment None Reported. Allergies No known drug allergies Medications Name Sig Start Date Stop Date Status Note LastModified by Organization Details LastModified Time cyclobenzap rine 10 mg tablet active Not Available Not Available Not Available ibuprofen 800 mg tablet TK 1 T PO Q 6 H PRF PAIN active Not Available Not Available No t Available hydrocodone 5 mg-acetamin ophen 325 mg tablet TAKE 1 TABLET BY MOUTH EVERY 6 HOURS NEEDED active Not Available Not Available No t Available meloxicam 15 mg tablet TK 1 T PO QD active Not Available Not Available No t Available prednisone 20 mg tablet TAKE 2 TABLETS BY MOUTH 1 TIME FOR 5 DAYS 01/06 completed Not Available Not Available Not Available Diflucan 150 mg tablet Take 1 tablet by oral route for 1 day. 01/06 completed Not Available Not Available Not Available acetaminoph en 300 mg-codeine 30 mg tablet TK 1 T PO Q 6 TO 8 H WF PRN P active Not Available Not Available No t Available dicyclomine 20 mg tablet active Not Available Not Available Not Available prednisone 50 mg tablet TAKE 1 TABLET BY MOUTH DAILY 01/06 completed Not Available Not Available Not Available gabapentin 300 mg capsule TK 1 C PO HS active Not Available Not Available No t Available Provera 10 mg tablet Take 10mg nightly 10 nights q90d if no menses. 2020 active Not Available Not Available Not Avai lable albuterol sulfate HFA 90 mcg/actuati on aerosol inhaler INHALE 2 TO 4 PUFFS BY MOUTH FOUR TIMES DAILY NEEDED FOR SHORTNESS OF BREATH OR WHEEZING active Not Available Not Available No t Available naproxen 500 mg tablet TAKE 1 TABLET BY MOUTH TWICE DAILY WITH FOOD active Not Available Not Available No t Available ciprofloxac in 0.3 %-dexametha sone 0.1 % ear drops,suspe nsion INSTILL 4 DROPS IN RIGHT EAR TWICE DAILY FOR 10 DAYS active Not Available Not Available No t Available hydrochloro thiazide 12.5 mg tablet TAKE 1 TABLET BY MOUTH DAILY active Not Available Not Available No t Available Vitals Date Recorded Systolic blood pressure Diastolic blood pressure Provider Name and Address Organization Details Last Updated DateTime 05/03/2020 130 mm[Hg] 80 mm[Hg] Fawn Alvarenga, [facility]- [address], [place], [address], [facility] 05/03/2020 14:05:08 Date Recorded Body height Body mass index (BMI) Body weight Provider Name and Address Organization Details Last Updated DateTime 05/03/2020 170.18 cm 35.2 kg/m2 289952.28 g Ericka Hathaway [facility] 05/03/2020 13:26:39 Date Recorded Body height Body mass index (BMI) Body weight Systolic blood pressure Diastolic blood pressure Provider Name and Address Organization Details Last Updated DateTime 01/06/2022 170.18 cm 38.9 kg/m2 495939.0 6 g 137 mm[Hg] 83 mm[Hg] Kaley Dockery [facility] 10:14:22 Social History Question Answer Notes LastModified by Organizat ion Details LastModified Time Tobacco Smoking Status Never Smoker Ericka Hathaway tej, [facility] 05/03/2020 13:21:56 Are You Blind Or Do You Have Difficulty Seeing? No Information not available 01/06/2022 What Is Your Level Of Caffeine Consumption? None Information not available 05/03/2020 Are You Deaf Or Do You Have Serious Difficulty Hearing? No Information not available 01/06/2022 Have You Ever Been Counseled For Unhealthy Alcohol Use? No Information not available 05/03/2020 Has Tobacco Cessation Counseling Been Provided? No Information not available 05/03/2020 Do You Have Difficulty Walking Or Climbing Stairs? No Information not available 01/06/2022 Sex: Unknown Functional Status Question Answer Note LastModified by Organizat ion Details LastModified Time Do you use any illicit or recreational drugs? No Information not available 05/03/2020 Do you or have you ever used any other forms of tobacco or nicotine? No Information not available 05/03/2020 What is your level of alcohol consumption? Occasional Information not available 05/03/2020 Are you able to walk? YESWOREST Information not available 01/06/2022 Are you able to care for yourself? Yes Information n ot available 01/06/2022 Do you have difficulty dressing or bathing? No Information not available 01/06/2022 What is your exercise level? Occasional Information not available 05/03/2020 Mental Status None recorded. Family History Relationship Description Onset Age of this Age Resolved Age Notes LastModified by Organization Details LastModified Time Mother Anemia Not available 05/03/2020 13:26:53 Medical History Condition Response Allergies (Food, seasonal, environmental ) N Other N Drug/Latex Allergies/Reactions N Blood Transfusion N Breast Cancer N Dermatologic Disorders N Lung Disease N Defects or Inherited Disease N Breast Problem N Gestational Diabetes N Hematologic disorders N Anesthesia Complications N History of STI N Deep Vein Thrombosis N Polycystic ovary syndrome N Anxiety Disorder N Autoimmune disease N Arthritis N Polyps N Infertility N Acid Reflux (GERD) N History of abnormal pap N Cancer N Varicosities N Stroke N Neurologic/Epilepsy N Endometriosis N High Cholesterol N Fibromyalgia N Headaches N Kidney Disease N Heart Problems N Thyroid Problems N Kidney or Bladder Problems N GI Problems N Eating Disorder N Anemia N Art (IVF or FET) N Psychiatric Illness N Ovarian Cancer N Diabetes N Pulmonary (TB, Asthma) N Hepatitis/Liver Disease N Eczema N Urinary Tract Infection N Abuse/Domestic Violence N Asthma N Trauma/Violence N Depression/ depression N Heart Disease N Pre-Eclampsia N Hypertension N Osteoporosis N Thrombophilias N Gynecological History Statement/Question Response Are cycles usually normal Y Flow Moderate Date of LMP 12/11/2021 Sexually Active? Y Was last menstrual period normal N HPV Vaccine N Sexual Problems? N Current Control Method None LMP Approximate Obstetrics History GPAL:G 0 P 0 0 0 0 Past Encounters Encounter ID Performer Location Encounter Start Date Encounter Closed Date Diagnosis/Indication Diagnosis SNOMED-CT Code Diagnosis ICD10 Code Diagnosis Note [id number] Fawn Alvarenga [facility] [address] [address] 05/03/2020 13:19:38 05/03/2020 14:31:25 Gynecologic examination 03599995 Z01.419 Take Calcium with Vitamin D 1200mg daily if not receiving in daily diet. It is strongly advised to have an annual flu shot and up can obtain at most pharmacies . If you have not had a TDap shot in the last 10 years you should obtain one as well. Discussed with patient & provided with informatio n regarding Gardisil vaccine to prevent the 4 strains for HPV that cause cervical cancer if under age 26. Encourage safe sexual practices, to use condoms and limit partners if not already in a monogamous relationsh ip. Do monthly self breast exams. Have mammogram yearly or every other year depending on family history. BRCA testing is now available for patients with strong genetic history of female cancer. If interested contact the office. Engage in daily exercise of low impact aerobic exercise 45-60 minutes 4-5 times weekly. Avoid tobacco and illicit drugs as well as using moderation with alcohol intake less than 1-2 8 oz beverages daily. This lifestyle behavior pattern will lead to less health conditions and longer life span. If BMI greater than 25 weight watchers or dietary consult advised. Patient received above instructio ns, and questions have been answered. If you have any questions please call or respond to this email. Patient was made aware of the patient portal and may obtain a paper copy of today's plan if desired. Pap/hpv done No issues or concerns Irregular periods 046686 07 N92.6 Hx of irregular menses occurring q1-3mos. NEVER goes past 3mos Has had this since menarch. Has used Provera in the past if menses does not occur q90d. Will send some in if needs it. We discussed in depth importance of menses minimum q1-3mos to risks of precancer/ cancers of endometriu m. She is in agreement & understand ing verbalized . [id number] KENDRA Shahid [place] [address] [address] 01/06/2022 10:04:33 01/06/2022 12:04:14 Abnormal uterine bleeding [id number] 9100 N93.9 UPT (-) todayWe agreed to update STI testing and pelvic u/s for further evaluation of prolonged spottingPa p updatedED precaution s discussed (heavy vaginal bleeding, pelvic pain, N/V, etc)Discus sed will likely need EMB pending pelvic u/s result due to prolonged spotting and BMI 40RTC for pelvic u/s and f/u appointmen t Time spent in visit is a total of 35 mins with at least 50% of visit consisting of counseling and review of plan of care. Venereal d isease screening 123557302 Z11.3 Irregular periods 925950 07 N92.6 Health Concerns Section Related Observation LastModified by Organization Detai ls LastModified Time None Recorded Concern Status LastModified by Organization Details LastModified Time None Recorded Advance Directives Directive None Recorded Payers Encounter Date Sequence Insurance Name Policy Number Policy Verma Covered Member ID Verma Member ID Guarantor Name 05/03/2020 1 [place] [employer] Stefania Caballero [id number] Stefania Caballero 05/03/2020 1 [facility] [id number] Stefania Caballero [id number] Stefania Caballero 01/06/2022 1 *SELF PAY* Christy Caballero Notes Date Note Type Note Provider Name and Address Organization Details Recorded Time 05/03/2020 text/html Annual GYNReport ed bypatient.Menstrua l cycle:Irregular cycle intervals; Periods occur q1-3mos. Mainly q1-2mos. Has been like this since menarche. She does not want BCP. She has been on Provera in the past if does not produce a menses past 90d. Urinary symptoms:No hematuria; No incontinence Vulva:No genital lesion Vagina:Normal vaginal discharge Breast:No breast pain; No breast lump; No nipple discharge Current Contraception:Not sexually active (Recently but wants STD moving forward) Sexual complaints:No sexual complaints; No pain during intercourse; Normal libido Menopausal Symptoms:No menopausal symptoms; Normal vaginal lubrication Psychological symptoms:No depression; No anxiety; No PMDD Preventive measures:Encourage self breast examination; Encourage regular exercise; Encourage no tobacco use; Encourage regular mammograms starting age 40; Followed with Q3 year pap smear and high risk HPV typing KENDRA Becerril- [address], [place], [address], [facility] [employer] 05/03/2020 14:05:14 01/06/2022 text/html 31yo [id number] for evaluation of irregular menses. LMP 12/11/2021, lasted 7 days. She then had a few days of no bleeding, followed by spotting continuously for the past 2.5 weeks. She is currently having no bleeding for the past 2 days.Previous to this episodes she has been having monthly periods, lasting 3-5 days for the past 6 months.Previous to that she would have menses every 1-3 months. Never longer than 3 months. Had provera but never had to take it.SA with steady male partner, using withdrawal and condoms for BCNo hx of abnormal papsMedical hx : States she has type 2 diabetes, not currently on medications. States my blood sugar has been fine KENDRA Shahid [address], [place], [address], [place] [facility] [employer] 01/06/2022 12:01:50 OBGyn Episode No OBEpisode recorded.
--- OUTSIDE RECORDS SUMMARY | 2024-08-29 23:03 | XMS_ITS | Data Portability ---
Author Organization [facility] Address [address] [place] [address] Assessment No assessment recorded. Plan of Treatment Reminders Order Date Submit Date Provider Last Modified By Organization Details Last Modified Time Details Appointments NEW PATIENT 30 2024 07:30A M ITZEL AMBROSE PA-C Not available Not available Not available Lab None recorded. Referral None recorded. Procedures None recorded. Surgeries None recorded. Imaging None recorded. Medication Orders Augmentin 875 mg-125 mg tablet 2019 INTERFACE Not available 04/29/2019 15:01:16 Ventolin HFA 90 mcg/actua tion aerosol inhaler 2019 020 INTERFACE Not available 04/29/2019 15:01:17 ondansetr on 8 mg disintegr ating tablet 2019 INTERFACE Not available 04/29/2019 15:03:17 Medrol (Jose) 4 mg tablets in a dose pack 2019 INTERFACE Not available 04/29/2019 15:03:15 Patient TargetsNo targets recorded. Patient Instructions Encounter Date Encounter Id Patient Instructions Last Modified By Organization Details Last Modified Time 04/29/2019 [id number] nausea and vomiting: care instructions Not available 04/29/2019 15:01:51 upper respirator y infection (cold): care instructions Not available 04/29/2019 15:01:51 bronchitis: care instructions Not available 04/29/2019 15:01:51 Reason for Referral None Reported. Medical Equipment None Reported. Allergies No known drug allergies Medications Name Sig Start Date Stop Date Status Note LastModified by Organization Details LastModified Time Augmentin 875 mg-125 mg tablet Take 1 tablet every 12 hours by oral route for 10 days. 2019 active Not Available Not Available Not Avai lable Medrol (Jose) 4 mg tablets in a dose pack Take 1 dose pk every day by oral route for 6 days. 2019 active Not Available Not Available Not Avai lable ondansetron 8 mg disintegrati ng tablet Place 1 tablet every 8 hours by translingua l route as needed for 3 days. 2019 active Not Available Not Available Not Avai lable Ventolin HFA 90 mcg/actuatio n aerosol inhaler Inhale 2 puffs every 4 hours by inhalation route as needed for 30 days. 2019 active Not Available Not Available Not Avai lable meloxicam active Not Available Not Tiffanie ilable Not Available cyclobenzapr ine active Not Available Not Available Not Available Vitals Date Recorded Body temperature Heart rate Provider N blanca and Address Organization Details Last Updated DateTime 04/29/2019 98.6 [degF] 78 /min Terri Enrique [place] - [place] 04/29/2019 14:15:53 Social History None recorded. Functional Status None recorded. Mental Status None recorded. Family History Nothing Reported. Medical History No medical history recorded. Gynecological HistoryNo gynecological history recorded. Obstetrics History GPAL:G 0 P 0 0 0 0 Past Encounters Encounter ID Performer Location Encounter Start Date Encounter Closed Date Diagnosis/Indication Diagnosis SNOMED-CT Code Diagnosis ICD10 Code Diagnosis Note [id number] Natalee Rod SURVEILLANCE MANAGER-[facility] [address] [place] [address] 04/29/2019 14:03:31 05/02/2019 08:52:47 Lower respiratory tract infection 73126758 J22 hydration and rest encouraged . fu c pcp within 2 weeks. report to ed if s/s worsen. otc medication for s/s. Upper resp iratory infection 51476048 J06.9 Acute bronchitis 4744178 2 J20.9 Nausea 439916941 R11.0 Health Concerns Section Related Observation LastModified by Organization Detai ls LastModified Time None Recorded Concern Status LastModified by Organization Details LastModified Time None Recorded Advance Directives Directive None Recorded Payers None recorded. Notes Date Note Type Note Provider Name and Address Organization Details Recorded Time 04/29/2019 text/html Pt presents to clinic requesting UPT. She also c/o nausea, wheezing at HS, green-yellow productive cough and R ear pain x 10 days. she denies trialing any otc medication. She denies a history of smoking and asthma. Pt denies vomiting, fever, chills, rash, diarrhea, constipation and dysuria. Natalee Rod, [place] Attn: Accounting[address] [place], [address], [facility] 04/29/2019 15:02:44 OBGyn Episode No OBEpisode recorded.
--- OUTSIDE RECORDS SUMMARY | 2024-08-29 23:04 | XMS_ITS | Data Portability ---
Author Organization [facility] Address [address] [facility] [address] [place] [address] Care Team Providers Care Speed Belt Sander Name Role Phone AYESHA ELEAZAR Referring Provider [phone] Assessment No assessment recorded. Plan of Treatment Reminders Order Date Submit Date Provider Last Modified By Organization Details Last Modified Time Details Appointments None record ed. Lab None record ed. Referral None record ed. Procedures None record ed. Surgeries None record ed. Imaging None record ed. Medication Orders None record ed. Patient TargetsNo targets recorded. Patient InstructionsNo instructions recorded. Reason for Referral None Reported. Procedures Surgical History Date Name Laterality Status Provider Name and Address Organization Details Recorded Time 04/10/2023 Sleep Study completed [email or web address] 04/15/2023 23:20:02 Imaging Results None recorded. Procedure Notes None recorded. Medical Equipment None Reported. Medications Name Sig Start Date Stop Date Status Note LastModified by Organization Details LastModified Time prednisone 20 mg tablet TAKE 2 TABLETS BY MOUTH DAILY FOR 5 DAYS active Not Available Not Available No t Available albuterol sulfate HFA 90 mcg/actuatio n aerosol inhaler INHALE 1 PUFF BY MOUTH 4 TIMES A DAY active Not Available Not Available No t Available Vitals Date Recorded Body height Body mass index (BMI) Body weight Provider Name and Address Organization Details Last Updated DateTime 04/10/2023 170.18 cm 37 kg/m2 496726.8 g [email or web address] 04/15/2023 22:53:00 Social History None recorded. Functional Status None recorded. Mental Status None recorded. Family History Nothing Reported. Medical History No medical history recorded. Gynecological HistoryNo gynecological history recorded. Obstetrics History GPAL:G 0 P 0 0 0 0 Past Encounters Encounter ID Performer Location Encounter Start Date Encounter Closed Date Diagnosis/Indication Diagnosis SNOMED-CT Code Diagnosis ICD10 Code Diagnosis Note [id number] [facility], [facility] (25) [address] [place] [address] 04/10/2023 20:41:24 04/15/2023 22:44:51 Obstructive sleep apnea of adult 6872445290 103 G47.33 Health Concerns Section Related Observation LastModified by Organization Detai ls LastModified Time None Recorded Concern Status LastModified by Organization Details LastModified Time None Recorded Advance Directives Directive None Recorded Payers Insurance Date Sequence Insurance Name Policy Number Policy Verma Covered Member ID Verma Member ID Guarantor Name 04/20/2023 [employer] Stefania Caballero [id number] Stefania Caballero OBGyn Episode No OBEpisode recorded.
--- OUTSIDE RECORDS SUMMARY | 2024-08-29 23:04 | XMS_ITS | Clinical Summary ---
Author Organization [email or web address] Address [address] [place] [address] Care Team Providers Care Barn And Property Manager Name Role Phone Sharri Hughes APRN-FIRE PREVENTION CHIEF Unavailable [phone] Source Comments [facility],non-owned Affiliates and Associated Physician Practices is amultiple site organization consisting of ambulatory clinics and hospital sitesin [place], [place], [place] and [place]. This disclosure is being madepursuant to the Care Everywhere program and may not contain all information available regarding this patient. Last updated 17.Agorafy Allergies No known active allergies Medications * Be aware that medications may not be up to date on this document. Alwaysverify current medications with the patient. 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 Gender Identity Not on file Sexual Orientation Not on file Last Filed Vital Signs Vital Sign Reading Time Taken Comments Blood Pressure 135/78 09/08/2023 11:04 PM CDT Pulse 84 09/08/2023 11:04 PM CDT Temperature 36.6 C (97.9 F) 09/08/2023 11:04 PM CDT Respiratory Rate 16 09/08/2023 11:04 PM CDT Oxygen Saturation 95% 09/08/2023 11:04 PM CDT Inhaled Oxygen Concentration - - Weight 111.6 kg (246 lb) 09/08/2023 11:04 PM CDT Height 170.2 cm (5' 7) 09/08/2023 11:04 PM CDT Body Mass Index 38.53 09/08/2023 11:04 PM CDT Plan of Treatment Health Maintenance Due Date Last Done Comments HIV SCREENING 12/03/2006 HEPATITIS C SCREENING 11/29/2009 DTAP/TDAP/TD VACCINES (1 - Tdap) 12/03/2010 HEPATITIS B VACCINE (1 of 3 - 19+ 3-dose series) 12/03/2010 COVID-19 VACCINE (1 - 2023-2 5 season) 2023 DEPRESSION SCREENING 03/23/2024 INFLUENZA VACCINE (Season Ended) 2024 PAP SMEAR 01/06/2025 01/06/2022, 01/06/2022 ZOSTER VACCINE (1 of 2) 12/03/2041 HIB VACCINE Aged Out No longer eligi ble based on patient's age to complete this topic HPV VACCINE Aged Out No longer eligi ble based on patient's age to complete this topic MENINGOCOCCAL (Group B) VACCINE SHARED DECISION-MAKING Aged Out No longer eligible based on patient's age to complete this topic MENINGOCOCCAL GROUPS A/C/Y/W VACCINE Aged Out No longer eligible b ased on patient's age to complete this topic PNEUMOCOCCAL VACCINE Aged Out No long er eligible based on patient's age to complete this topic Insurance MEDICAID - OUT OF STATE Care Teams Barn And Property Manager Relationship Specialty Start Date End Date Sharri Hughes, RESEARCH PROJECT MANAGER-FIRE PREVENTION CHIEF [address] [place] [address] PCP - Attributed-[employer] Medicaid [place] 01/22/24
[2024-08-29 23:07] VITALS: BP 111/96; PULSE 84; RESP 15; TEMP 35.9; O2SAT 95
[2024-08-29 23:59] LABS: Basophils Absolute Auto 0.1 K/mm3 (0.0-0.1); Basophils Percent Auto 0.9 % (0.2-1.2); Eosinophils Absolute Auto 0.3 K/mm3 (0-0.3); Eosinophils Percent Auto 3.7 % (0-4.4); Hematocrit 38.2 % (37.0-47.0); Hemoglobin 11.7 g/dL (12.0-15.0); Immature Granulocyte Absolute 0.03 K/mm3 (0.00-0.031); Immature Granulocyte Percent A 0.4 % (0-0.5); Lymphocytes Absolute Auto 2.34 K/mm3 (0.9-3.2); Lymphocytes Percent Auto 29.8 % (18.3-44.2); Mean Corpuscular HGB Conc 30.6 g/dl (32-36); Mean Corpuscular Hemoglobin 26.9 pg (26-34); Mean Corpuscular Volume 87.8 fl (80-100); Mean Platelet Volume 10.4 fl (7.4-10.4); Monocytes Absolute Auto 0.6 K/mm3 (0.1-0.6); Monocytes Percent Auto 7.9 % (2.6-8.5); Neutrophils Absolute Auto 4.5 K/mm3 (1.3-6.7); Neutrophils Percent Auto 57.3 % (45.5-73.1); Platelet Count Result 250 k/mm3 (150-375); Red Blood Count 4.35 M/mm3 (4.2-5.4); Red Cell Distribution Width 13.8 % (11.5-14.5); White Blood Count 7.8 K/mm3 (4.5-10.0)
--- OUTSIDE RECORDS SUMMARY | 2024-08-30 00:11 | XMS_ITS | Clinical Summary ---
Author Organization [facility] Address [address] [place] [address] Care Team Providers Care Utility Porter Name Role Phone Sharri Hughes APRN-ASSISTANT STATISTICIAN Unavailable [phone] Source Comments [facility],non-owned Affiliates and Associated Physician Practices is amultiple site organization consisting of ambulatory clinics and hospital sitesin [place], [place], [place] and [place]. This disclosure is being madepursuant to the Care Everywhere program and may not contain all information available regarding this patient. 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
[2024-08-30 00:14] LABS: Alanine Aminotransferase 19 U/L (6-35); Alkaline Phosphatase 49 U/L (38-126); Anion Gap 8 mmol/L (4-12); Aspartate Amino Transferase 21 U/L (14-36); Bilirubin,Total 0.3 mg/dL (0.2-1.3); Blood Urea Nitrogen 12 mg/dL (7-17); Carbon Dioxide 25 mmol/L (22-30); Chloride 105 mmol/L (98-107); Estimated CRCL calculation 99 ml/min; Estimated Glomerular Filt Rate > 60; Glucose 166 mg/dL (65-110); Lipase 27 U/L (23-300); Magnesium 1.8 mg/dL (1.6-2.3); Potassium 3.4 mmol/L (3.4-5.0); SPREG INTERNAL CONTROL Positive; Serum Qual hCG Negative; Sodium 138 mmol/L (137-145); Total Protein 7.6 g/dL (6.3-8.2)
[2024-08-30 00:16] VITALS: BP 139/76; PULSE 67; RESP 18; TEMP 36.5; O2SAT 98
[2024-08-30 00:30] LABS: Add Urine Microscopic? YES; Appearance Urine Turbid (Clear); Bacteria Urine Rare /hpf; Bilirubin Urine 1+ (Negative); Blood Urine 3+ (Negative); Glucose Urine UA Negative (Negative); Ketones Urine Negative (Negative); Leukocyte Esterase Ur 2+ LEU/UL (Negative); Nitrate Urine Negative (Negative); Non Pathogenic Casts 0-2; Protein Urine 2+ mg/dL (Negative); RBC Urine >100 /hpf (0-2); Specific Grav Ur 1.039 (1.001-1.035); Squamous Epithelial Cell Urine None Seen /hpf (Few); Urobilinogen Urine 0.2 mg/dL (<2.0); WBC Urine 51-100 /hpf (0-3)
[2024-08-30 00:32] LABS: Color Urine Light Red (Yellow)
--- NOTE | 2024-08-30 00:52 | ED_ITS ---
HPI - Female Genitourinary General Chief complaint: Vaginal Bleeding Stated complaint: heavier than normal period, passed a clot Time Seen by Provider: 08/29/24 23:56 Source: patient Mode of arrival: ambulatory Limitations: no limitations History of Present Illness HPI Narrative: Patient is a 33-year-old female who presents the ED with report of abnormal vaginal bleeding. Patient reports she started her normal menstrual cycle today. States she was due to start today, but the bleeding has been much heavier than normal. States she went through 3-4 pads today in a short time frame which is not normal for her. Reports she passed a small blood clot. She showed me a picture of this. She also reports having some cramping throughout her lower abdomen, worse throughout her right lower abdomen. She states she does not typically have cramping related to her cycles. Denies nausea, vomiting, fevers, dysuria, hematuria. Patient was sexually active around 1 month ago at the time she started her previous cycle. Related Data Allergies Allergy/AdvReac Type Severity Reaction Status Date / Time No Known Allergies Allergy Verified 08/30/24 00:14 Review of Systems 2 Review of Systems: All systems reviewed & are unremarkable except as noted in HPI. All systems reviewed & are unremarkable except as noted in HPI and below PMFSH Past Medical History Medical History DM type 2 (diabetes mellitus, type 2) Essential (primary) hypertension Moderate persistent asthma Anxiety Chronic low back pain Surgical History Surgical History No pertinent past surgical history Family History Family History Mother No pertinent past medical history Grandparent Hypertension Grandparent Diabetes mellitus Social History Social History Smoking status: Never smoker Second hand tobacco smoke exposure: No Alcohol intake: current Drinks per week: 1 Alcohol use details: Socially Substance use: former Substance use type: heroin Last use: 3 months ago Do You Feel Safe in your Home?: Yes Lack of Transportation: No Lack of Food: Never True Current Housing: I Have Housing Concerned About Future Housing: No Difficulty Paying Gas/Electric Bills: YES Difficulty Paying for Meds: YES Currently Unemployed: No Education: Trade/Vocational Certificate Difficulty w/ Childcare or Family Care: No Living arrangements: alone Occupation/Education: occupation 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 HEAD: Normocephalic, atraumatic. RESPIRATORY: Airway patent, respirations nonlabored. Clear to auscultation bilaterally, no rales, rhonchi, wheezing. CARDIOVASCULAR: Regular rate and rhythm without murmurs, rubs, or gallops. ABDOMINAL: Soft, mild diffuse tenderness throughout lower abdomen, worst in right lower quadrant, nondistended. Normoactive BS. MUSCULOSKELETAL: Moves all extremities. No gross deformities. SKIN: Warm, dry, normal color. NEURO: A&O X3. Speech clear. PSYCHIATRIC: Appropriate mood and affect. Normal interaction. Course Vital Signs Vital signs: Vital Signs Temperature 96.6 F L 08/29/24 23:07 Pulse Rate 84 08/29/24 23:07 Respiratory Rate 15 08/29/24 23:07 Blood Pressure 111/96 H 08/29/24 23:07 Pulse Oximetry 95 08/29/24 23:07 Oxygen Delivery Room Air 08/29/24 23:07 Temperature 97.7 F 08/30/24 00:16 Pulse Rate 67 08/30/24 00:16 Respiratory Rate 18 08/30/24 00:16 Blood Pressure 139/76 08/30/24 00:16 Pulse Oximetry 98 08/30/24 00:16 Oxygen Delivery Room Air 08/29/24 23:07 MDM - Female Genitourinary MDM Narrative Medical decision making narrative: Patient presented to ED with abnormal vaginal bleeding, currently on menstrual cycle, but heavier than usual. Also reporting lower abdominal cramping, worst in right lower quadrant. Vital signs are stable upon arrival. Patient is in no acute distress. Cbc without leukocytosis. H&H is stable. Appears consistent with previous records. CMP unremarkable. UA with 2+ leuk esterase, greater than 100 RBC, 51-100 WBC. Rare urine bacteria seen. Sent for culture. Discussed this with patient. Likely contaminated catch. She denies any urinary symptoms. Will send for culture and defer treatment for now. Discussed performing pelvic exam, however patient declined at this time. Pelvic ultrasound was obtained to rule out torsion, this was unremarkable, normal blood flow to both ovaries. Advised patient likely having just heavier than usual menstrual cycle. Advised to have close follow-up with OBGYN for further evaluation. She does have appointment early next month. Advised to continue monitor bleeding at home, given strict return precautions. She agrees with plan, feels comfortable going home. Discharged in stable condition Medical Records Attestation: I reviewed the patient's medical records. Lab Data Attestation: I reviewed the patient's lab results. 08/29/24 23:53 08/29/24 23:53 Labs: Lab Results 08/29/24 08/30/24 Range/Units 23:53 00:05 WBC 7.8 (4.5-10.0) K/mm3 RBC 4.35 (4.2-5.4) M/mm3 Hgb 11.7 L (12.0-15.0) g/dL Hct 38.2 (37.0-47.0) % MCV 87.8 (80-100) fl MCH 26.9 (26-34) pg MCHC 30.6 L (32-36) g/dl RDW 13.8 (11.5-14.5) % Plt Count 250 (150-375) k/mm3 MPV 10.4 (7.4-10.4) fl Immature Gran % (Auto) 0.4 (0-0.5) % Neut % (Auto) 57.3 (45.5-73.1) % Lymph % (Auto) 29.8 (18.3-44.2) % Ada % (Auto) 7.9 (2.6-8.5) % Eos % (Auto) 3.7 (0-4.4) % Baso % (Auto) 0.9 (0.2-1.2) % Lymph # (Auto) 2.34 (0.9-3.2) K/mm3 Ada # (Auto) 0.6 (0.1-0.6) K/mm3 Eos # (Auto) 0.3 (0-0.3) K/mm3 Baso # (Auto) 0.1 (0.0-0.1) K/mm3 Abs Immat Gran (auto) 0.03 (0.00-0.031) K/mm3 Absolute Neuts (auto) 4.5 (1.3-6.7) K/mm3 Absolute Nucleated RBC 0.000 (0.0-0.012) K/mm3 Nucleated RBC % 0.0 (0.0-0.2) % Sodium 138 (137-145) mmol/L Potassium 3.4 (3.4-5.0) mmol/L Chloride 105 (98-107) mmol/L Carbon Dioxide 25 (22-30) mmol/L Anion Gap 8 (4-12) mmol/L BUN 12 (7-17) mg/dL Creatinine 0.91 (0.7-1.0) mg/dL Estim Creat Clear Calc 99 ml/min Estimated GFR > 60 (59 - ) Glucose 166 H (65-110) mg/dL Calcium 9.0 (8.4-10.2) mg/dL Magnesium 1.8 (1.6-2.3) mg/dL Total Bilirubin 0.3 (0.2-1.3) mg/dL AST 21 (14-36) U/L ALT 19 (6-35) U/L Alkaline Phosphatase 49 (38-126) U/L Total Protein 7.6 (6.3-8.2) g/dL Albumin 4.0 (3.5-5.1) g/dL Lipase 27 (23-300) U/L Serum HCG, Qual Negative Urine Color Light red H (Yellow) Urine Appearance Turbid H (Clear) Urine pH 5.0 (5.0-9.0) Ur Specific Brackney 1.039 H (1.001-1.035) Urine Protein 2+ H (Negative) mg/dL Urine Glucose (UA) Negative (Negative) mg/dL Urine Ketones Negative (Negative) mg/dL Ur Blood (Man) 3+ H (Negative) Urine Nitrate Negative (Negative) Urine Bilirubin 1+ H (Negative) Urine Urobilinogen 0.2 (<2.0) mg/dL Leukocyte Esterase Rfl 2+ H (Negative) MURALI/UL Urine RBC >100 H (0-2) /hpf Urine WBC 51-100 H (0-3) /hpf Ur Squamous Epith Cells None seen (Few) /hpf Urine Bacteria Rare /hpf Urine Casts 0-2 Imaging Data Attestation: I personally reviewed and interpreted this imaging study as follows: Radiologist's impression: STAT RAD pelvis US: Unremarkable study. No acute findings. Discharge Plan Discharge Clinical Impression: Dysfunctional uterine bleeding, Abnormal finding on urinalysis Patient Disposition: Home Condition: Stable Instructions: Antibiotic Form, Abnormal (Dysfunctional) Uterine Bleeding (ED), Dysmenorrhea (ED), Menorrhagia (ED) Additional Instructions: Follow-up with your OBGYN for further evaluation. Continue to monitor bleeding. Recommend Tylenol and ibuprofen as needed for pain. Return to the ED if you experience worsening or severe bleeding (saturating through greater than 1 pad per hour), severe pain, fevers, unable to keep down food or drink, or any other symptoms of concern. Your urine showed evidence of possible infection. This is being sent for culture. Follow-up with your PCP and/or OBGYN for urine culture results. Patient Language: Norwegian Prescriptions: No Action metformin 500 mg tablet extended release 24 hr 500 mg PO BID Qty: 60 0RF budesonide-formoterol 160-4.5 mcg/actuation HFA aerosol inhaler 2 puff inhalation Q12H Qty: 10.2 6RF Follow-up/Referrals: Ana,Talha Chris DO [Primary Care Provider] - Mike Tabor MD [Physician] - (PRIMARY CARE) Time of Disposition: 02:57
[2024-08-30] MEDS: ACETAMINOPHEN 500 MG TABLET 1000 MG PO (01:50)
[2024-08-30 03:02] VITALS: BP 122/70; PULSE 75; RESP 14; O2SAT 99
== END 2024-08-30 03:03 | disposition home or self-care (01) ==
PROVIDERS: Emergency Medicine; Emergency Provider Physician Assistant; PCP Family Medicine
DX: N93.8 Other specified abnormal uterine and vaginal bleeding (principal); R82.998 Other abnormal findings in urine; E11.9 Type 2 diabetes mellitus without complications; I10 Essential (primary) hypertension; J45.40 Moderate persistent asthma, uncomplicated; F41.9 Anxiety disorder, unspecified; Z79.84 Long term (current) use of oral hypoglycemic drugs
CPT/HCPCS: 36415; 76830; 76856; 80053; 81001; 83690; 83735; 84703; 85025; 87086; 99284; A9270